=== PATIENT | female | born 1970 | race Caucasian/White ===

== ENCOUNTER 2016-04-15 15:40 | Emergency (ER) | payer BC ==
[~2016-04-15 15:40] MED LIST: /THIA10TA; ACET65TA PO; ASPI81TA45; ASPI81TA83 OR; CIPR500T4; CIPR500T4 PO; CIPRO; CIPRO PO; MAGN500T2 PO; NORT10CA2; OMEP20TA7; PERC5TAB8 PO; PERCOCET PO; PRIL20CA OR; PROP80CA OR; PROPRANOLOL
[2016-04-15] MEDS ORDERED: GI COCKTAIL 50ML BTL(HYOSCYAMINE/MAALOX/LIDOCAINE VISCOUS)(1:3:1) As Ordered ONE (16:02)
[2016-04-15 16:25] LABS: BASO # 0.1 K/mm3 (0.0-0.2); BASO % 1.1 % (0.0-1.0); EOS # 0.1 K/mm3 (0.0-0.50); EOS % 1.2 % (0.0-3.0); LARGE UNSTAINED CELL # 0.1 K/mm3 (0.0-0.4); LARGE UNSTAINED CELL % 1.6 % (0.0-4.0); LYMPH # 2.1 K/mm3 (1.5-4.5); LYMPH % 39.2 % (24.0-44.0); MEAN CORPUSCULAR HEMOGLOBIN 33.6 pg (27.0-33.0); MEAN CORPUSCULAR HGB CONC 32.1 g/dl (32.0-36.5); MEAN CORPUSCULAR VOLUME 104.7 fl (80.0-96.0); MONO # 0.4 K/mm3 (0.0-0.8); MONO % 7.5 % (0.0-5.0); NEUTROPHILS # 2.6 K/mm3 (1.8-7.7); NEUTROPHILS % 49.3 % (36.0-66.0); PLATELET COUNT, AUTOMATED 212 k/mm3 (150-450); RED CELL DISTRIBUTION WIDTH 14.4 % (11.5-14.5); WHITE BLOOD COUNT 5.2 K/mm3 (4.0-10.0)
--- NOTE | 2016-04-15 16:33 | REP ---
PA AND LATERAL CHEST, 04/15/2016: INDICATION: 46-year-old female with chest pain. Comparison PA and lateral chest 01/10/2009. FINDINGS: The mediastinum and cardiac silhouette are within normal limits. The lung robertson are clear without acute consolidation, effusion or pneumothorax. Skeletal structures are normal for age. IMPRESSION: No acute cardiopulmonary process. Unreviewed
[2016-04-15 16:50] LABS: ANION GAP 9 MEQ/L (8-16); BLOOD UREA NITROGEN 11 MG/DL (7-18); CALCIUM LEVEL 9.2 MG/DL (8.5-10.1); CARBON DIOXIDE LEVEL 29 MEQ/L (21-32); CHLORIDE LEVEL 106 MEQ/L (98-107); CREATININE FOR GFR 0.82 MG/DL (0.55-1.02); GLOMERULAR FILTRATION RATE > 60.0 (>58); GLUCOSE, FASTING 111 MG/DL (70-105); POTASSIUM SERUM 3.8 MEQ/L (3.5-5.1); SODIUM LEVEL 144 MEQ/L (136-145)
[2016-04-15] MEDS ORDERED: SUCRALFATE 1 GM TAB As Ordered ONE (17:10)
[2016-04-15] MEDS ORDERED: PANTOPRAZOLE 40MG INJ (PROTONIX) (C9113) As Ordered ONE (17:10)
[2016-04-15] MEDS ORDERED: ISOVUE-370 76% 100ML VIAL (Q9967) As Ordered ONE (17:18)
--- NOTE | 2016-04-15 18:36 | REP ---
CT ANGIOGRAM CHEST: 04/15/2016. Clinical history: Pleuritic chest pain. Evaluate for pulmonary embolism. Comparison chest x-ray today, CT angiogram 06/30/2006. Technique: Bolus of 100 mL-Isovue 370 with scanning through the chest with our pulmonary CT angiogram protocol with coronal and sagittal thick slab reconstructions. The lung robertson are well inflated. There are some dependant minor dependent atelectatic changes in the lower lung zones bilaterally. No cylindrical bronchiectasis, pleural effusion, pleural-based mass or calcified pleural plaques noted. No pneumothorax or pneumomediastinum. I see no acute infiltrate or mass. No evidence of a nodule. Heart is not enlarged as no pericardial thickening or effusion. The aorta is without aneurysm or dissection. The main, right and left pulmonary arteries and the mediastinum are without filling defects. Lobar arteries, segmental and subsegmental arteries are without filling defects or vessel cutoff that would clearly define a pulmonary embolism. No pathologic mediastinal or hilar adenopathy and no axillary, supraclavicular mass identified. Small hiatal hernia. The anastomotic sutures or staple lines from gastric bypass are noted. Bone windows show sternum, manubrium, clavicles, AC joints, humeral heads and glenohumeral joints, scapulae, ribs and spine without destructive lesion or compression deformity. There is mild dextrorotatory curve mid and lower thoracic spine with small osteophytes. The upper abdomen shows that portion of liver and spleen intact. No adrenal lesions are identified. The upper pole right kidney seen was unremarkable. Impression: 1. There is no CT evidence of pulmonary thromboembolism, acute infiltrate, pleural effusion, pneumothorax, pneumomediastinum, pulmonary nodule or other acute finding. 2. No aortic aneurysm or dissection. 3. No mediastinal or hilar adenopathy nor other acute finding. Bones intact. Signed by Jaquan Davison MD 04/15/2016 08:17 P
--- NOTE | 2016-04-15 21:22 | ECGEPIP ---
Stationary ECG Study [facility] - ED Test Date: 2016-04-15 Pat Name: LIZZETTE PEDRAZA Department: Room: - Gender: F Hematology Specialist: : 1970 Requested By: Tena Blum Order Number: [id number] Reading MD: Frnech Johnson Measurements Intervals [place] Rate: 77 P: 52 OH: 138 QRS: 52 QRSD: 92 T: 59 QT: 380 QTc: 432 Interpretive Statements SINUS RHYTHM Electronically Signed On 04-15-2016 21:22:43 EST by French Johnson
--- NOTE | 2016-04-15 21:35 | ECGEPIP ---
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
--- NOTE | 2016-04-15 22:32 | EDDOCDS ---
Physician Documentation [facility] Name: Terra Bennett Age: 46 yrs Sex: Female : 1970 Arrival Date: 04/15/2016 Time: 15:40 Bed OBSERVATION Private MD: Disposition: 04/15/16 21:39 Discharged to Home/Self Care. Impression: Chest pain, unspecified. - Condition is Stable. - Discharge Instructions: Angina Pectoris, Nonspecific Chest Pain, Chest Wall Pain, Gastroesophageal Reflux Disease, Adult. - Prescriptions for Protonix 40 mg Oral Tablet - take 1 tablet by ORAL route once daily; 30 tablet. Carafate 100 mg/mL Oral suspension - take 10 milliliter by ORAL route 4 times per day on an empty stomach 1 hour before meals and at bedtime; 250 milliliter. - Medication Reconciliation, Local Pharmacy Hours form. - Follow up: aMry Ivey DO; When: Call to arrange an appointment; Reason: Continuance of care. - Problem is an acute exacerbation. - Symptoms have improved. Historical: - Allergies: PENICILLINS (Hives); - Home Meds: 1. Zoloft 100 mg Oral tab 1 tab once daily 2. aspirin 81 mg Oral tab 1 tab once daily 3. multivitamin Oral cap 1 tablet daily - PMHx: Depression; Hypertension; Stroke (2005); - PSHx: Tonsillectomy; Cholecystectomy; Hysterectomy; Adenoidectomy; Gastric Bypass; Ear Tubes; - Social history: Smoking status: Patient states former smoker of tobacco. No barriers to communication noted, The patient speaks fluent Irish. - Family history: Not pertinent. - : The pt / caregiver states he / she is not on anticoagulants. Home medication list is obtained from the patient. - Exposure Risk Screening:: None identified. BUSINESS JOB TITLES: 04/15 22:31 LMP N/A - Irregular menses rs3 Vital Signs: 15:52 BP 127 / 88; Pulse 80; Resp 18; Temp 98.7(O); Pulse Ox 97% on R/A; Weight 77.11 kg / rn1 170 lbs (R); Height 5 ft. 7 in. (170.18 cm) (R); Pain 4/10; 16:24 BP 126 / 87 (auto/); rs3 16:24 Pulse 80 MON; Pulse Ox 96% ; rs3 16:39 BP 124 / 84 (auto/); rs3 16:39 Pulse 82 MON; Pulse Ox 96% ; rs3 16:54 BP 127 / 88 (auto/); rs3 16:54 Pulse 84 MON; Pulse Ox 97% ; rs3 17:09 BP 123 / 82 (auto/); rs3 17:09 Pulse 86 MON; Pulse Ox 96% ; rs3 17:24 BP 125 / 88 (auto/); rs3 17:24 Pulse 76 MON; Pulse Ox 98% ; rs3 21:47 BP 120 / 90; Pulse 77; Resp 20; Temp 98.7(TE); Pulse Ox 96% on R/A; Pain 0/10; jmv 15:52 Body Mass Index 26.63 (77.11 kg, 170.18 cm) rn1 MDM: 15:46 Appointment Clerk/Pulse Ox/q 30 min VS ordered. sd1 15:46 IV Saline Lock ordered. sd1 15:46 Rhythm Strip to chart ordered. sd1 15:46 Undress patient appropriately for examination ordered. sd1 15:47 Basic Metabolic Profile Ordered. EDMS 15:47 CBC with Diff Ordered. EDMS 15:47 Cardiac Injury Profile Ordered. EDMS 15:47 Troponin Ordered. EDMS 15:47 ECG WITH READING ER PHYS+CARDIAG ordered. EDMS 15:56 GI Cocktail - (Alum-Mag Hydroxide-Simeth 30 ml, Lidocaine 10 ml, Hyoscyamine 10 ml) PO sd1 once; Pre-mixed 50mL unit dose ordered. 15:57 D-Dimer Quant Ordered. EDMS 15:58 Chest, 2 View (pa\E\lat) Ordered. EDMS 16:49 CBC with Diff Reviewed. sd1 16:49 D-Dimer Quant Reviewed. sd1 16:53 Basic Metabolic Profile Reviewed. sd1 16:53 Cardiac Injury Profile Reviewed. sd1 16:53 Troponin Reviewed. sd1 16:58 NS 0.9% 1000 ml IV at 250 mL/hr continuous ordered. sd1 16:58 CT Chest Angio R/O PE Ordered. EDMS 17:01 pantoprazole 40 mg IV at bolus once ordered. sd1 17:01 Sucralfate 1 grams PO once ordered. sd1 17:21 Financial registration complete. lg 17:22 [facility] Payment Agreement was scanned into [employer] and attached to record. lg 18:00 Redraw CIP &Troponin (put time in details section) ordered. sd1 18:00 Repeat EKG (put time details section) ordered. sd1 18:04 Repeat EKG (put time details section) complete. deg 18:04 Redraw CIP &Troponin (put time in details section) complete. deg 18:05 CARDIAC MARKER PANEL Ordered. EDMS 18:05 ECG WITH READING ER PHYS ordered. EDMS 21:02 CARDIAC MARKER PANEL Reviewed. mm11 21:02 Chest, 2 View (pa\E\lat) Reviewed. mm11 21:02 CT Chest Angio R/O PE Reviewed. mm11 Administered Medications: 16:04 Drug: GI Cocktail - (Alum-Mag Hydroxide-Simeth Suspension 225 mg-200 mg-25 mg/5 mL 30 rs3 ml, Lidocaine Liquid 2 % 10 ml, Hyoscyamine Liquid 10 ml) Route: PO; 17:16 Drug: NS 0.9% 1000 ml [sodium chloride 0.9 % intravenous solution] Route: IV; Rate: 250 rs3 mL/hr; Site: left antecubital; 17:16 Drug: pantoprazole 40 mg [pantoprazole 40 mg intravenous solution] Route: IV; Rate: rs3 bolus; Site: left antecubital; 17:17 Drug: Sucralfate 1 grams [sucralfate 1 gram tablet (1 tabs)] Route: PO; rs3 Signatures: Dispatcher [employer] EDTena Flynn MD MD sd1 Amirah Morales, Editorial Clerk Unit deg Joseph Mathur, Reg Reg lg Kelechi Sheldon, DO DO mm11 Marianne JasmineRN RN rs3 The chart was reviewed and I authenticate all verbal orders and agree with the evaluation and treatment provided.Corrections: (The following items were deleted from the chart) 16:07 15:47 Chest, 1 view+XR ordered. EDMS EDMS Attachments: 17:22 [facility] Payment Agreement lg MTDD
--- NOTE | 2016-04-15 22:32 | EDDOCDS ---
Nurse's Notes [facility] Name: Lizzette Pedraza Age: 46 yrs Sex: Female : 1970 Arrival Date: 04/15/2016 Time: 15:40 Bed OBSERVATION Private MD: Diagnosis: Chest pain, unspecified Presentation: 04/15 15:49 Presenting complaint: EMS states: sudden onset of chest pain this afternoon. vomited rs3 twice. nausea all day. epigastric burning type pain. radiates to Left flank stabbing pain. 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 Adult Sepsis Screening: The patient does not have new or worsening altered mentation. Patient's respiratory rate is less than 22. Systolic blood pressure is greater than 100. Patient has a qSOFA score of 0- Negative Sepsis Screen. Suicide/Homicide risk assessment- the patient denies having any suicidal and/or homicidal ideations and does not present with any other emotional, behavioral or mental health complaints. Status: Patient is not a services advisor or dependent. Transition of care: patient was not received from another setting of care. Care prior to arrival: Medications administered prior to arrival: NTG, Saline lock initiated. Glucose check. 92. 15:49 Acuity: ANGEL Level 2 rs3 15:49 Method Of Arrival: Ambulance rs3 Triage Assessment: 15:53 General: Appears in no apparent distress. Pain: Location: chest. HIV screening NA for rs3 this visit Offered previously. Cardiovascular: Chest pain is described as Pain is 6 out of 10 on a pain scale. radiates to left flank episodes are intermittent began this morning. 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 Zoloft 100 mg Oral tab 1 tab once daily 2. aspirin 81 mg Oral tab 1 tab once daily 3. multivitamin Oral cap 1 tablet daily - PMHx: Depression; Hypertension; Stroke (2005); - PSHx: Tonsillectomy; Cholecystectomy; Hysterectomy; Adenoidectomy; Gastric Bypass; Ear Tubes; - Social history: Smoking status: Patient states former smoker of tobacco. No barriers to communication noted, The patient speaks fluent Arabic. - Family history: Not pertinent. - : The pt / caregiver states he / she is not on anticoagulants. Home medication list is obtained from the patient. - Exposure Risk Screening:: None identified. Screenin:30 Screening information is obtained from the patient. Fall risk: No risks identified. rs3 Assistance ADL's: requires no assistance with activities of daily living. Abuse/DV Screen: The patient / caregiver reports he/she is: not in a situation that causes fear, pain or injury. Nutritional screening: No deficits noted. Advance Directives: Currently, there is no health care proxy. There is no active DNR order. home support is adequate. Assessment: 16:30 General: see triage note. rs3 17:30 General: Appears in no apparent distress, Behavior is appropriate for age, cooperative. rs3 Neurological: Level of Consciousness is awake, alert. Cardiovascular: Rhythm is regular Chest pain is denied. Respiratory: Airway is patent Respiratory effort is even, unlabored, Respiratory pattern is regular, symmetrical, Breath sounds are clear bilaterally. Derm: Skin is pink, warm & dry. 18:23 General: Appears in no apparent distress, resting comfortable. denies of chest rs3 pain/discomfort. returned from CT angio. tolerated procedure well. IVF NS infusing at 250cc/hr.. 19:30 General: Appears in no apparent distress, Behavior is cooperative, denies of chest rs3 pain. waiting for repeat card komal. family at bedside. vital signs stable. . 20:47 General: Appears in no apparent distress, Behavior is appropriate for age, cooperative, rs3 denies of pain/distress. . 21:26 General: Appears in no apparent distress, Behavior is cooperative, denies of chest rs3 pain/discomfort. breathes easy. family at bedside. 22:29 Reassessment: Patient appears in no apparent distress at this time. Patient denies pain rs3 at this time. Patient states feeling better. Patient states symptoms have improved. Vital Signs: 15:52 BP 127 / 88; Pulse 80; Resp 18; Temp 98.7(O); Pulse Ox 97% on R/A; Weight 77.11 kg (R); rn1 Height 5 ft. 7 in. (170.18 cm) (R); Pain 4/10; 16:24 BP 126 / 87 (auto/); rs3 16:24 Pulse 80 MON; Pulse Ox 96% ; rs3 16:39 BP 124 / 84 (auto/); rs3 16:39 Pulse 82 MON; Pulse Ox 96% ; rs3 16:54 BP 127 / 88 (auto/); rs3 16:54 Pulse 84 MON; Pulse Ox 97% ; rs3 17:09 BP 123 / 82 (auto/); rs3 17:09 Pulse 86 MON; Pulse Ox 96% ; rs3 17:24 BP 125 / 88 (auto/); rs3 17:24 Pulse 76 MON; Pulse Ox 98% ; rs3 21:47 BP 120 / 90; Pulse 77; Resp 20; Temp 98.7(TE); Pulse Ox 96% on R/A; Pain 0/10; jmv 15:52 Body Mass Index 26.63 (77.11 kg, 170.18 cm) rn1 Vitals: 22:31 Log In Time N/A - ambulance arrival. rs3 ED Course: 15:41 Patient visited by Amirah Morales, Boiler Tenders Supervisor. deg 15:41 Patient moved to Waiting deg 15:42 Teri Latham,RN is Primary Nurse. deg 15:42 Tena Blum MD is Attending Physician. sd1 15:42 Patient moved to 10 deg 15:43 Marianne Jasmine,JOLENE is Primary Nurse. rs3 15:50 Patient visited by Tena Blum MD. sd1 15:51 Triage Initiated rs3 16:52 Patient visited by Suhas Sánchez PCA. jlf 17:15 Chest, 2 View (pa\E\lat) Returned. EDMS 17:22 [facility] Payment Agreement was scanned into [employer] and attached to record. lg 17:32 Patient visited by Marianne Jasmine RN. rs3 18:10 Patient visited by Marianne Jasmine RN. rs3 18:18 Patient moved to OBSERVATION sd1 19:07 CT Chest Angio R/O PE Returned. EDMS 19:22 Attending Physician role handed off by Tena Blum MD mm11 19:22 Kelechi Sheldon DO is Attending Physician. mm11 21:04 CT Chest Angio R/O PE Returned. EDMS 21:04 EKG done. (by ED staff). Reviewed by Kelechi Sheldon DO. jmv 21:05 Patient visited by Sujit Rocha PCA. jmv 21:39 Loni, Mary, DO is Referral Physician. mm11 21:47 Patient visited by Sujit Rocha PCA. jmv 21:58 EKG-ADULT Returned. EDMS 21:59 ECG WITH READING ER PHYS Returned. EDMS 22:30 Maintain field IV. Dressing intact. Good blood return noted. Site clean & dry. rs3 22:30 Discontinued lock bleeding controlled, pressure dressing applied, No redness/swelling rs3 at site. No procedures done that require assistance. 22:31 The patient / caregiver is instructed regarding the plan of care and ED course. Cardiac rs3 monitor on. Pulse ox on. NIBP on. Administered Medications: 16:04 Drug: GI Cocktail - (Alum-Mag Hydroxide-Simeth Suspension 225 mg-200 mg-25 mg/5 mL 30 rs3 ml, Lidocaine Liquid 2 % 10 ml, Hyoscyamine Liquid 10 ml) Route: PO; 17:16 Drug: NS 0.9% 1000 ml [sodium chloride 0.9 % intravenous solution] Route: IV; Rate: 250 rs3 mL/hr; Site: left antecubital; 17:16 Drug: pantoprazole 40 mg [pantoprazole 40 mg intravenous solution] Route: IV; Rate: rs3 bolus; Site: left antecubital; 17:17 Drug: Sucralfate 1 grams [sucralfate 1 gram tablet (1 tabs)] Route: PO; rs3 Order Results: Lab Order: Basic Metabolic Profile; SPEC'M 04/15/16 16:12 Test: GLUCOSE, FASTING; Value: 111; Range: 70-105; Abnormal: Above high normal; Units: MG/DL; Status: F Test: BLOOD UREA NITROGEN; Value: 11; Range: 7-18; Units: MG/DL; Status: F Test: CREATININE FOR GFR; Value: 0.82; Range: 0.55-1.02; Units: MG/DL; Status: F Test: GLOMERULAR FILTRATION RATE; Value: > 60.0; Range: >58; Status: F Test: SODIUM LEVEL; Value: 144; Range: 136-145; Units: MEQ/L; Status: F Test: POTASSIUM SERUM; Value: 3.8; Range: 3.5-5.1; Units: MEQ/L; Status: F Test: CHLORIDE LEVEL; Value: 106; Range: 98-107; Units: MEQ/L; Status: F Test: CARBON DIOXIDE LEVEL; Value: 29; Range: 21-32; Units: MEQ/L; Status: F Test: ANION GAP; Value: 9; Range: 8-16; Units: MEQ/L; Status: F Test: CALCIUM LEVEL; Value: 9.2; Range: 8.5-10.1; Units: MG/DL; Status: F Test Note: ; Units are mL/min/1.73 m2 Chronic Kidney Disease Staging per NKF: Stage I & II GFR >=60 Normal to Mildly Decreased Stage III GFR 30-59 Moderately Decreased Stage IV GFR 15-29 Severely Decreased Stage V GFR <15 Very Little GFR Left ESRD GFR <15 on BREAKFAST SUPERVISOR Lab Order: CBC with Diff; SPEC'M 04/15/16 16:12 Test: WHITE BLOOD COUNT; Value: 5.2; Range: 4.0-10.0; Units: K/mm3; Status: F Test: RED BLOOD COUNT; Value: 3.95; Range: 4.00-5.40; Abnormal: Below low normal; Units: M/mm3; Status: F Test: HEMOGLOBIN; Value: 13.3; Range: 12.0-16.0; Units: g/dl; Status: F Test: HEMATOCRIT; Value: 41.3; Range: 36.0-47.0; Units: %; Status: F Test: MEAN CORPUSCULAR VOLUME; Value: 104.7; Range: 80.0-96.0; Abnormal: Above high normal; Units: fl; Status: F Test: MEAN CORPUSCULAR HEMOGLOBIN; Value: 33.6; Range: 27.0-33.0; Abnormal: Above high normal; Units: pg; Status: F Test: MEAN CORPUSCULAR HGB CONC; Value: 32.1; Range: 32.0-36.5; Units: g/dl; Status: F Test: RED CELL DISTRIBUTION WIDTH; Value: 14.4; Range: 11.5-14.5; Units: %; Status: F Test: PLATELET COUNT, AUTOMATED; Value: 212; Range: 150-450; Units: k/mm3; Status: F Test: NEUTROPHILS %; Value: 49.3; Range: 36.0-66.0; Units: %; Status: F Test: LYMPH %; Value: 39.2; Range: 24.0-44.0; Units: %; Status: F Test: MONO %; Value: 7.5; Range: 0.0-5.0; Abnormal: Above high normal; Units: %; Status: F Test: EOS %; Value: 1.2; Range: 0.0-3.0; Units: %; Status: F Test: BASO %; Value: 1.1; Range: 0.0-1.0; Abnormal: Above high normal; Units: %; Status: F Test: LARGE UNSTAINED CELL %; Value: 1.6; Range: 0.0-4.0; Units: %; Status: F Test: NEUTROPHILS #; Value: 2.6; Range: 1.8-7.7; Units: K/mm3; Status: F Test: LYMPH #; Value: 2.1; Range: 1.5-4.5; Units: K/mm3; Status: F Test: MONO #; Value: 0.4; Range: 0.0-0.8; Units: K/mm3; Status: F Test: EOS #; Value: 0.1; Range: 0.0-0.50; Units: K/mm3; Status: F Test: BASO #; Value: 0.1; Range: 0.0-0.2; Units: K/mm3; Status: F Test: LARGE UNSTAINED CELL #; Value: 0.1; Range: 0.0-0.4; Units: K/mm3; Status: F Lab Order: Cardiac Injury Profile; SPEC'M 04/15/16 16:12 Test: CPK CREATINE PHOSPHOKINASE; Value: 43; Range: 26-192; Units: U/L; Status: F Test: CK-MB VALUE MASS; Value: 1.0; Range: 0.0-3.6; Units: NG/ML; Status: F Test: MB/CK RELATIVE INDEX; Value: 2.32; Range: < OR =4; Status: F Test Note: ; DIAGNOSIS CRITERIA MMB ng/ml Relative Index (RI) NON-AMI < or = 5 N/A ANDERSON ZONE > 5 < or = 4 AMI > 5 > 4 Lab Order: Troponin; SPEC'M 04/15/16 16:12 Test: TROPONIN I; Value: < 0.02; Range: < 0.10; Units: NG/ML; Status: F Test Note: ; Troponin I Reference Interval for Siemens Sensbeat LOCI: 99th Percentile= 0.00-0.045 ng/ml Risk Stratification: <= 0.10 ng/ml Decreased Risk for Adverse Clinical Events. 0.10-1.50 ng/ml Increased Risk for Adverse Clinical Events. Evaluation of additional criterion and/or repeat testing in 2-6 hours is suggested to rule out myocardial damage. >= 1.50 ng/ml Indicative of Myocardial Injury. Lab Order: D-Dimer Quant; SPEC'M 04/15/16 16:12 Test: D-DIMER QUANT; Value: 508.6; Range: <500; Abnormal: Above high normal; Units: ng/ml; Status: F Lab Order: CARDIAC MARKER PANEL; SPEC'M 04/15/16 19:56 Test: CPK CREATINE PHOSPHOKINASE; Value: 34; Range: 26-192; Units: U/L; Status: F Test: CK-MB VALUE MASS; Value: 1.0; Range: 0.0-3.6; Units: NG/ML; Status: F Test: MB/CK RELATIVE INDEX; Value: 2.94; Range: < OR =4; Status: F Test: TROPONIN I; Value: < 0.02; Range: < 0.10; Units: NG/ML; Status: F Test Note: ; DIAGNOSIS CRITERIA MMB ng/ml Relative Index (RI) NON-AMI < or = 5 N/A ANDERSON ZONE > 5 < or = 4 AMI > 5 > 4 Radiology Order: EKG-ADULT Test: EKG-ADULT REASON FOR EXAMINATION: Chest Pain; Stationary ECG Study; [facility] - ED; ; Test Date: 2016-04-15; Pat Name: LIZZETTE PEDRAZA Department:; Room: -; Gender: F Crook Operator: rs; : 1970 Requested By: Tena Blum; Order Number: [id number] Reading MD: French Johnson; Measurements; Intervals [place]; Rate: 77 P: 52; MA: 138 QRS: 52; QRSD: 92 T: 59; QT: 380; QTc: 432; Interpretive Statements; SINUS RHYTHM; ; Electronically Signed On 04-15-2016 21:22:43 EST by French Johnson; Radiology Order: Chest, 2 View (pa\E\lat) Test: Chest, 2 View (pa\E\lat) REASON FOR EXAMINATION: Chest Pain; PA AND LATERAL CHEST, 04/15/2016:; ; INDICATION: 46-year-old female with chest pain.; ; Comparison PA and lateral chest 01/10/2009.; ; FINDINGS: The mediastinum and cardiac silhouette are within normal limits. The; lung robertson are clear without acute consolidation, effusion or pneumothorax.; Skeletal structures are normal for age.; ; IMPRESSION:; No acute cardiopulmonary process.; ; ; ; Unreviewed; Radiology Order: CT Chest Angio R/O PE Test: CT Chest Angio R/O PE REASON FOR EXAMINATION: pleuritic chest pain elevated d-dimer; CT ANGIOGRAM CHEST: 04/15/2016.; ; Clinical history: Pleuritic chest pain. Evaluate for pulmonary embolism.; ; Comparison chest x-ray today, CT angiogram 06/30/2006.; ; Technique: Bolus of 100 mL-Isovue 370 with scanning through the chest with our; pulmonary CT angiogram protocol with coronal and sagittal thick slab; reconstructions.; ; The lung robertson are well inflated. There are some dependant minor dependent; atelectatic changes in the lower lung zones bilaterally. No cylindrical; bronchiectasis, pleural effusion, pleural-based mass or calcified pleural plaques; noted. No pneumothorax or pneumomediastinum. I see no acute infiltrate or mass.; No evidence of a nodule. Heart is not enlarged as no pericardial thickening or; effusion. The aorta is without aneurysm or dissection. The main, right and left; pulmonary arteries and the mediastinum are without filling defects. Lobar; arteries, segmental and subsegmental arteries are without filling defects or; vessel cutoff that would clearly define a pulmonary embolism. No pathologic; mediastinal or hilar adenopathy and no axillary, supraclavicular mass identified.; Small hiatal hernia. The anastomotic sutures or staple lines from gastric bypass; are noted. Bone windows show sternum, manubrium, clavicles, AC joints, humeral; heads and glenohumeral joints, scapulae, ribs and spine without destructive; lesion or compression deformity. There is mild dextrorotatory curve mid and; lower thoracic spine with small osteophytes. The upper abdomen shows that; portion of liver and spleen intact. No adrenal lesions are identified. The; upper pole right kidney seen was unremarkable.; ; Impression:; ; 1. There is no CT evidence of pulmonary thromboembolism, acute infiltrate,; pleural effusion, pneumothorax, pneumomediastinum, pulmonary nodule or other; acute finding.; ; 2. No aortic aneurysm or dissection.; ; 3. No mediastinal or hilar adenopathy nor other acute finding. Bones intact.; ; ; Signed by; Jaquan Davison MD 04/15/2016 08:17 P; Radiology Order: ECG WITH READING ER PHYS Test: ECG WITH READING ER PHYS REASON FOR EXAMINATION: CHEST PAIN; Stationary ECG Study; [facility] - ED; ; Test Date: 2016-04-15; Pat Name: LIZZETTE PEDRAZA Department:; Room: -; Gender: F Crook Operator: act; : 1970 Requested By: Tena Blum; Order Number: [id number] Reading MD: French Johnson; Measurements; Intervals [place]; Rate: 69 P: 44; MA: 150 QRS: 30; QRSD: 92 T: 35; QT: 395; QTc: 426; Interpretive Statements; SINUS RHYTHM; ; Electronically Signed On 04-15-2016 21:35:06 EST by French Johnson; Outcome: 21:39 Discharge ordered by Provider. mm11 22:29 Discharge Assessment: patient administered narcotics - no. The following High Risk rs3 Discharge criteria are identified: None. Discharged to home with family. Condition: stable. Discharge instructions given to patient, Instructed on discharge instructions, follow up and referral plans. medication usage, Demonstrated understanding of instructions, medications, Pt was receptive of discharge instructions/ teaching. Prescriptions given X 2. CT Study completed. Property :Personal belongings accompany Pt. 22:31 Patient left the ED. rs3 Signatures: Dispatcher [employer] EDMS Tena Blum MD MD sd1 Amirah Morales, Boiler Tenders Supervisor Unit deg Joseph Mathru, Reg Reg lg Kelechi Sheldon, DO DO mm11 Marianne Jasmine RN RN rs3 Suhas Sánchez, VESSEL LINER VESSEL LINER jlf Jacky Cardoza rn1 Sujit Rocha, VESSEL LINER VESSEL LINER jmv MTDD
--- NOTE | 2016-04-17 23:32 | EDDOCDS ---
Physician Documentation [facility] Name: Terra Bennett Age: 46 yrs Sex: Female : 1970 Arrival Date: 04/15/2016 Time: 15:40 Bed OBSERVATION Private MD: Disposition: 04/15/16 21:39 Discharged to Home/Self Care. Impression: Chest pain, unspecified. - Condition is Stable. - Discharge Instructions: Angina Pectoris, Nonspecific Chest Pain, Chest Wall Pain, Gastroesophageal Reflux Disease, Adult. - Prescriptions for Protonix 40 mg Oral Tablet - take 1 tablet by ORAL route once daily; 30 tablet. Carafate 100 mg/mL Oral suspension - take 10 milliliter by ORAL route 4 times per day on an empty stomach 1 hour before meals and at bedtime; 250 milliliter. - Medication Reconciliation, Local Pharmacy Hours form. - Follow up: Mary Ivey DO; When: Call to arrange an appointment; Reason: Continuance of care. - Problem is an acute exacerbation. - Symptoms have improved. Historical: - Allergies: PENICILLINS (Hives); - Home Meds: 1. Zoloft 100 mg Oral tab 1 tab once daily 2. aspirin 81 mg Oral tab 1 tab once daily 3. multivitamin Oral cap 1 tablet daily - PMHx: Depression; Hypertension; Stroke (2005); - PSHx: Tonsillectomy; Cholecystectomy; Hysterectomy; Adenoidectomy; Gastric Bypass; Ear Tubes; - Social history: Smoking status: Patient states former smoker of tobacco. No barriers to communication noted, The patient speaks fluent Serbian. - Family history: Not pertinent. - : The pt / caregiver states he / she is not on anticoagulants. Home medication list is obtained from the patient. - Exposure Risk Screening:: None identified. PATTERN FILER: 04/15 22:31 LMP N/A - Irregular menses rs3 Vital Signs: 15:52 BP 127 / 88; Pulse 80; Resp 18; Temp 98.7(O); Pulse Ox 97% on R/A; Weight 77.11 kg / rn1 170 lbs (R); Height 5 ft. 7 in. (170.18 cm) (R); Pain 4/10; 16:24 BP 126 / 87 (auto/); rs3 16:24 Pulse 80 MON; Pulse Ox 96% ; rs3 16:39 BP 124 / 84 (auto/); rs3 16:39 Pulse 82 MON; Pulse Ox 96% ; rs3 16:54 BP 127 / 88 (auto/); rs3 16:54 Pulse 84 MON; Pulse Ox 97% ; rs3 17:09 BP 123 / 82 (auto/); rs3 17:09 Pulse 86 MON; Pulse Ox 96% ; rs3 17:24 BP 125 / 88 (auto/); rs3 17:24 Pulse 76 MON; Pulse Ox 98% ; rs3 21:47 BP 120 / 90; Pulse 77; Resp 20; Temp 98.7(TE); Pulse Ox 96% on R/A; Pain 0/10; jmv 15:52 Body Mass Index 26.63 (77.11 kg, 170.18 cm) rn1 MDM: 15:46 Auto Locator/Pulse Ox/q 30 min VS ordered. sd1 15:46 IV Saline Lock ordered. sd1 15:46 Rhythm Strip to chart ordered. sd1 15:46 Undress patient appropriately for examination ordered. sd1 15:47 Basic Metabolic Profile Ordered. EDMS 15:47 CBC with Diff Ordered. EDMS 15:47 Cardiac Injury Profile Ordered. EDMS 15:47 Troponin Ordered. EDMS 15:47 ECG WITH READING ER PHYS+CARDIAG ordered. EDMS 15:56 GI Cocktail - (Alum-Mag Hydroxide-Simeth 30 ml, Lidocaine 10 ml, Hyoscyamine 10 ml) PO sd1 once; Pre-mixed 50mL unit dose ordered. 15:57 D-Dimer Quant Ordered. EDMS 15:58 Chest, 2 View (pa\E\lat) Ordered. EDMS 16:49 CBC with Diff Reviewed. sd1 16:49 D-Dimer Quant Reviewed. sd1 16:53 Basic Metabolic Profile Reviewed. sd1 16:53 Cardiac Injury Profile Reviewed. sd1 16:53 Troponin Reviewed. sd1 16:58 NS 0.9% 1000 ml IV at 250 mL/hr continuous ordered. sd1 16:58 CT Chest Angio R/O PE Ordered. EDMS 17:01 pantoprazole 40 mg IV at bolus once ordered. sd1 17:01 Sucralfate 1 grams PO once ordered. sd1 17:21 Financial registration complete. lg 17:22 [facility] [place] Payment Agreement was scanned into [employer] and attached to record. lg 18:00 Redraw CIP &Troponin (put time in details section) ordered. sd1 18:00 Repeat EKG (put time details section) ordered. sd1 18:04 Repeat EKG (put time details section) complete. deg 18:04 Redraw CIP &Troponin (put time in details section) complete. deg 18:05 CARDIAC MARKER PANEL Ordered. EDMS 18:05 ECG WITH READING ER PHYS ordered. EDMS 21:02 CARDIAC MARKER PANEL Reviewed. mm11 21:02 Chest, 2 View (pa\E\lat) Reviewed. mm11 21:02 CT Chest Angio R/O PE Reviewed. mm11 04/16 09:49 T-Sheet-- Draft Copy was scanned into [employer] and attached to record. gb 09:49 ECG/EKG was scanned into [employer] and attached to record. gb Administered Medications: 04/15 16:04 Drug: GI Cocktail - (Alum-Mag Hydroxide-Simeth Suspension 225 mg-200 mg-25 mg/5 mL 30 rs3 ml, Lidocaine Liquid 2 % 10 ml, Hyoscyamine Liquid 10 ml) Route: PO; 17:16 Drug: NS 0.9% 1000 ml [sodium chloride 0.9 % intravenous solution] Route: IV; Rate: 250 rs3 mL/hr; Site: left antecubital; 17:16 Drug: pantoprazole 40 mg [pantoprazole 40 mg intravenous solution] Route: IV; Rate: rs3 bolus; Site: left antecubital; 17:17 Drug: Sucralfate 1 grams [sucralfate 1 gram tablet (1 tabs)] Route: PO; rs3 Signatures: Dispatcher [employer] EDKY Tena Blum MD MD sd1 Amirah Morales, Level Vial Inspector Unit deg Sue Calvert, Reg Reg gb Joseph Mathur, Reg Reg lg Kelechi Sheldon, DO mm11 Marianne JasmineRN RN rs3 The chart was reviewed and I authenticate all verbal orders and agree with the evaluation and treatment provided.Corrections: (The following items were deleted from the chart) 16:07 15:47 Chest, 1 view+XR ordered. EDMS EDMS Attachments: 17:22 [facility] [place] Payment Agreement lg 04/16 09:49 T-Sheet-- Draft Copy 09:49 ECG/EKG gb Chart Complete MTDD
--- NOTE | 2016-04-17 23:33 | EDDOCDS ---
Nurse's Notes [facility] Name: Lizzette Pedraza Age: 46 yrs Sex: Female : 1970 Arrival Date: 04/15/2016 Time: 15:40 Bed OBSERVATION Private MD: Diagnosis: Chest pain, unspecified Presentation: 04/15 15:49 Presenting complaint: EMS states: sudden onset of chest pain this afternoon. vomited rs3 twice. nausea all day. epigastric burning type pain. radiates to Left flank stabbing pain. Aspirin was taken [employer]. Adult Sepsis Screening: The patient does not have new or worsening altered mentation. Patient's respiratory rate is less than 22. Systolic blood pressure is greater than 100. Patient has a qSOFA score of 0- Negative Sepsis Screen. Suicide/Homicide risk assessment- the patient denies having any suicidal and/or homicidal ideations and does not present with any other emotional, behavioral or mental health complaints. Status: Patient is not a patient services technician or dependent. Transition of care: patient was not received from another setting of care. Care prior to arrival: Medications administered prior to arrival: NTG, Saline lock initiated. Glucose check. 92. 15:49 Acuity: ANGEL Level 2 rs3 15:49 Method Of Arrival: Ambulance rs3 Triage Assessment: 15:53 General: Appears in no apparent distress. Pain: Location: chest. HIV screening NA for rs3 this visit Offered previously. Cardiovascular: Chest pain is described as Pain is 6 out of 10 on a pain scale. radiates to left flank episodes are intermittent began this morning. 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 Zoloft 100 mg Oral tab 1 tab once daily 2. aspirin 81 mg Oral tab 1 tab once daily 3. multivitamin Oral cap 1 tablet daily - PMHx: Depression; Hypertension; Stroke (2005); - PSHx: Tonsillectomy; Cholecystectomy; Hysterectomy; Adenoidectomy; Gastric Bypass; Ear Tubes; - Social history: Smoking status: Patient states former smoker of tobacco. No barriers to communication noted, The patient speaks fluent Nepali. - Family history: Not pertinent. - : The pt / caregiver states he / she is not on anticoagulants. Home medication list is obtained from the patient. - Exposure Risk Screening:: None identified. Screenin:30 Screening information is obtained from the patient. Fall risk: No risks identified. rs3 Assistance ADL's: requires no assistance with activities of daily living. Abuse/DV Screen: The patient / caregiver reports he/she is: not in a situation that causes fear, pain or injury. Nutritional screening: No deficits noted. Advance Directives: Currently, there is no health care proxy. There is no active DNR order. home support is adequate. Assessment: 16:30 General: see triage note. rs3 17:30 General: Appears in no apparent distress, Behavior is appropriate for age, cooperative. rs3 Neurological: Level of Consciousness is awake, alert. Cardiovascular: Rhythm is regular Chest pain is denied. Respiratory: Airway is patent Respiratory effort is even, unlabored, Respiratory pattern is regular, symmetrical, Breath sounds are clear bilaterally. Derm: Skin is pink, warm & dry. 18:23 General: Appears in no apparent distress, resting comfortable. denies of chest rs3 pain/discomfort. returned from CT angio. tolerated procedure well. IVF NS infusing at 250cc/hr.. 19:30 General: Appears in no apparent distress, Behavior is cooperative, denies of chest rs3 pain. waiting for repeat card komal. family at bedside. vital signs stable. . 20:47 General: Appears in no apparent distress, Behavior is appropriate for age, cooperative, rs3 denies of pain/distress. . 21:26 General: Appears in no apparent distress, Behavior is cooperative, denies of chest rs3 pain/discomfort. breathes easy. family at bedside. 22:29 Reassessment: Patient appears in no apparent distress at this time. Patient denies pain rs3 at this time. Patient states feeling better. Patient states symptoms have improved. Vital Signs: 15:52 BP 127 / 88; Pulse 80; Resp 18; Temp 98.7(O); Pulse Ox 97% on R/A; Weight 77.11 kg (R); rn1 Height 5 ft. 7 in. (170.18 cm) (R); Pain 4/10; 16:24 BP 126 / 87 (auto/); rs3 16:24 Pulse 80 MON; Pulse Ox 96% ; rs3 16:39 BP 124 / 84 (auto/); rs3 16:39 Pulse 82 MON; Pulse Ox 96% ; rs3 16:54 BP 127 / 88 (auto/); rs3 16:54 Pulse 84 MON; Pulse Ox 97% ; rs3 17:09 BP 123 / 82 (auto/); rs3 17:09 Pulse 86 MON; Pulse Ox 96% ; rs3 17:24 BP 125 / 88 (auto/); rs3 17:24 Pulse 76 MON; Pulse Ox 98% ; rs3 21:47 BP 120 / 90; Pulse 77; Resp 20; Temp 98.7(TE); Pulse Ox 96% on R/A; Pain 0/10; jmv 15:52 Body Mass Index 26.63 (77.11 kg, 170.18 cm) rn1 Vitals: 22:31 Log In Time N/A - ambulance arrival. rs3 ED Course: 15:41 Patient visited by Amirah Morales, [place] [employer] Operator. deg 15:41 Patient moved to Waiting deg 15:42 Teri Latham,RN is Primary Nurse. deg 15:42 Tena Blum MD is Attending Physician. sd1 15:42 Patient moved to 10 deg 15:43 Marianne Jasmine,JOLENE is Primary Nurse. rs3 15:50 Patient visited by Tena Blum MD. sd1 15:51 Triage Initiated rs3 16:52 Patient visited by Suhas Sánchze PCA. jlf 17:15 Chest, 2 View (pa\E\lat) Returned. EDMS 17:22 [facility] Payment Agreement was scanned into [employer] and attached to record. lg 17:32 Patient visited by Marianne Jasmine RN. rs3 18:10 Patient visited by Marianne Jasmine RN. rs3 18:18 Patient moved to OBSERVATION sd1 19:07 CT Chest Angio R/O PE Returned. EDMS 19:22 Attending Physician role handed off by Tena Blum MD mm11 19:22 Kelechi Sheldon DO is Attending Physician. mm11 21:04 CT Chest Angio R/O PE Returned. EDMS 21:04 EKG done. (by ED staff). Reviewed by Kelechi Sheldon DO. jmv 21:05 Patient visited by Sujit Rocha PCA. jmv 21:39 Loni, Mary, DO is Referral Physician. mm11 21:47 Patient visited by Sujit Rocha PCA. jmv 21:58 EKG-ADULT Returned. EDMS 21:59 ECG WITH READING ER PHYS Returned. EDMS 22:30 Maintain field IV. Dressing intact. Good blood return noted. Site clean & dry. rs3 22:30 Discontinued lock bleeding controlled, pressure dressing applied, No redness/swelling rs3 at site. No procedures done that require assistance. 22:31 The patient / caregiver is instructed regarding the plan of care and ED course. Cardiac rs3 monitor on. Pulse ox on. NIBP on. 23:05 Chest, 2 View (pa\E\lat) Returned. EDMS 04/16 09:49 T-Sheet-- Draft Copy was scanned into [employer] and attached to record. gb 09:49 ECG/EKG was scanned into [employer] and attached to record. gb Administered Medications: 04/15 16:04 Drug: GI Cocktail - (Alum-Mag Hydroxide-Simeth Suspension 225 mg-200 mg-25 mg/5 mL 30 rs3 ml, Lidocaine Liquid 2 % 10 ml, Hyoscyamine Liquid 10 ml) Route: PO; 17:16 Drug: NS 0.9% 1000 ml [sodium chloride 0.9 % intravenous solution] Route: IV; Rate: 250 rs3 mL/hr; Site: left antecubital; 17:16 Drug: pantoprazole 40 mg [pantoprazole 40 mg intravenous solution] Route: IV; Rate: rs3 bolus; Site: left antecubital; 17:17 Drug: Sucralfate 1 grams [sucralfate 1 gram tablet (1 tabs)] Route: PO; rs3 Order Results: Lab Order: Basic Metabolic Profile; SPEC'M 04/15/16 16:12 Test: GLUCOSE, FASTING; Value: 111; Range: 70-105; Abnormal: Above high normal; Units: MG/DL; Status: F Test: BLOOD UREA NITROGEN; Value: 11; Range: 7-18; Units: MG/DL; Status: F Test: CREATININE FOR GFR; Value: 0.82; Range: 0.55-1.02; Units: MG/DL; Status: F Test: GLOMERULAR FILTRATION RATE; Value: > 60.0; Range: >58; Status: F Test: SODIUM LEVEL; Value: 144; Range: 136-145; Units: MEQ/L; Status: F Test: POTASSIUM SERUM; Value: 3.8; Range: 3.5-5.1; Units: MEQ/L; Status: F Test: CHLORIDE LEVEL; Value: 106; Range: 98-107; Units: MEQ/L; Status: F Test: CARBON DIOXIDE LEVEL; Value: 29; Range: 21-32; Units: MEQ/L; Status: F Test: ANION GAP; Value: 9; Range: 8-16; Units: MEQ/L; Status: F Test: CALCIUM LEVEL; Value: 9.2; Range: 8.5-10.1; Units: MG/DL; Status: F Test Note: ; Units are mL/min/1.73 m2 Chronic Kidney Disease Staging per NKF: Stage I & II GFR >=60 Normal to Mildly Decreased Stage III GFR 30-59 Moderately Decreased Stage IV GFR 15-29 Severely Decreased Stage V GFR <15 Very Little GFR Left ESRD GFR <15 on CONVENTION WORKER Lab Order: CBC with Diff; SPEC'M 04/15/16 16:12 Test: WHITE BLOOD COUNT; Value: 5.2; Range: 4.0-10.0; Units: K/mm3; Status: F Test: RED BLOOD COUNT; Value: 3.95; Range: 4.00-5.40; Abnormal: Below low normal; Units: M/mm3; Status: F Test: HEMOGLOBIN; Value: 13.3; Range: 12.0-16.0; Units: g/dl; Status: F Test: HEMATOCRIT; Value: 41.3; Range: 36.0-47.0; Units: %; Status: F Test: MEAN CORPUSCULAR VOLUME; Value: 104.7; Range: 80.0-96.0; Abnormal: Above high normal; Units: fl; Status: F Test: MEAN CORPUSCULAR HEMOGLOBIN; Value: 33.6; Range: 27.0-33.0; Abnormal: Above high normal; Units: pg; Status: F Test: MEAN CORPUSCULAR HGB CONC; Value: 32.1; Range: 32.0-36.5; Units: g/dl; Status: F Test: RED CELL DISTRIBUTION WIDTH; Value: 14.4; Range: 11.5-14.5; Units: %; Status: F Test: PLATELET COUNT, AUTOMATED; Value: 212; Range: 150-450; Units: k/mm3; Status: F Test: NEUTROPHILS %; Value: 49.3; Range: 36.0-66.0; Units: %; Status: F Test: LYMPH %; Value: 39.2; Range: 24.0-44.0; Units: %; Status: F Test: MONO %; Value: 7.5; Range: 0.0-5.0; Abnormal: Above high normal; Units: %; Status: F Test: EOS %; Value: 1.2; Range: 0.0-3.0; Units: %; Status: F Test: BASO %; Value: 1.1; Range: 0.0-1.0; Abnormal: Above high normal; Units: %; Status: F Test: LARGE UNSTAINED CELL %; Value: 1.6; Range: 0.0-4.0; Units: %; Status: F Test: NEUTROPHILS #; Value: 2.6; Range: 1.8-7.7; Units: K/mm3; Status: F Test: LYMPH #; Value: 2.1; Range: 1.5-4.5; Units: K/mm3; Status: F Test: MONO #; Value: 0.4; Range: 0.0-0.8; Units: K/mm3; Status: F Test: EOS #; Value: 0.1; Range: 0.0-0.50; Units: K/mm3; Status: F Test: BASO #; Value: 0.1; Range: 0.0-0.2; Units: K/mm3; Status: F Test: LARGE UNSTAINED CELL #; Value: 0.1; Range: 0.0-0.4; Units: K/mm3; Status: F Lab Order: Cardiac Injury Profile; SPEC'M 04/15/16 16:12 Test: CPK CREATINE PHOSPHOKINASE; Value: 43; Range: 26-192; Units: U/L; Status: F Test: CK-MB VALUE MASS; Value: 1.0; Range: 0.0-3.6; Units: NG/ML; Status: F Test: MB/CK RELATIVE INDEX; Value: 2.32; Range: < OR =4; Status: F Test Note: ; DIAGNOSIS CRITERIA MMB ng/ml Relative Index (RI) NON-AMI < or = 5 N/A ANDERSON ZONE > 5 < or = 4 AMI > 5 > 4 Lab Order: Troponin; SPEC'M 04/15/16 16:12 Test: TROPONIN I; Value: < 0.02; Range: < 0.10; Units: NG/ML; Status: F Test Note: ; Troponin I Reference Interval for Siemens Fluker LOCI: 99th Percentile= 0.00-0.045 ng/ml Risk Stratification: <= 0.10 ng/ml Decreased Risk for Adverse Clinical Events. 0.10-1.50 ng/ml Increased Risk for Adverse Clinical Events. Evaluation of additional criterion and/or repeat testing in 2-6 hours is suggested to rule out myocardial damage. >= 1.50 ng/ml Indicative of Myocardial Injury. Lab Order: D-Dimer Quant; SPEC'M 04/15/16 16:12 Test: D-DIMER QUANT; Value: 508.6; Range: <500; Abnormal: Above high normal; Units: ng/ml; Status: F Lab Order: CARDIAC MARKER PANEL; SPEC'M 04/15/16 19:56 Test: CPK CREATINE PHOSPHOKINASE; Value: 34; Range: 26-192; Units: U/L; Status: F Test: CK-MB VALUE MASS; Value: 1.0; Range: 0.0-3.6; Units: NG/ML; Status: F Test: MB/CK RELATIVE INDEX; Value: 2.94; Range: < OR =4; Status: F Test: TROPONIN I; Value: < 0.02; Range: < 0.10; Units: NG/ML; Status: F Test Note: ; DIAGNOSIS CRITERIA MMB ng/ml Relative Index (RI) NON-AMI < or = 5 N/A ANDERSON ZONE > 5 < or = 4 AMI > 5 > 4 Radiology Order: EKG-ADULT Test: EKG-ADULT REASON FOR EXAMINATION: Chest Pain; Stationary ECG Study; [facility] - ED; ; Test Date: 2016-04-15; Pat Name: LIZZETTE PEDRAZA Department:; Room: -; Gender: F 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; : 1970 Requested By: Tena Blum; Order Number: [id number] Reading MD: French Johnson; Measurements; Intervals [place]; Rate: 77 P: 52; NC: 138 QRS: 52; QRSD: 92 T: 59; QT: 380; QTc: 432; Interpretive Statements; SINUS RHYTHM; ; Electronically Signed On 04-15-2016 21:22:43 EST by French Johnson; Radiology Order: Chest, 2 View (pa\E\lat) Test: Chest, 2 View (pa\E\lat) REASON FOR EXAMINATION: Chest Pain; PA AND LATERAL CHEST, 04/15/2016:; ; INDICATION: 46-year-old female with chest pain.; ; Comparison PA and lateral chest 01/10/2009.; ; FINDINGS: The mediastinum and cardiac silhouette are within normal limits. The; lung robertson are clear without acute consolidation, effusion or pneumothorax.; Skeletal structures are normal for age.; ; IMPRESSION:; No acute cardiopulmonary process.; ; ; ; Unreviewed; Radiology Order: CT Chest Angio R/O PE Test: CT Chest Angio R/O PE REASON FOR EXAMINATION: pleuritic chest pain elevated d-dimer; CT ANGIOGRAM CHEST: 04/15/2016.; ; Clinical history: Pleuritic chest pain. Evaluate for pulmonary embolism.; ; Comparison chest x-ray today, CT angiogram 06/30/2006.; ; Technique: Bolus of 100 mL-Isovue 370 with scanning through the chest with our; pulmonary CT angiogram protocol with coronal and sagittal thick slab; reconstructions.; ; The lung robertson are well inflated. There are some dependant minor dependent; atelectatic changes in the lower lung zones bilaterally. No cylindrical; bronchiectasis, pleural effusion, pleural-based mass or calcified pleural plaques; noted. No pneumothorax or pneumomediastinum. I see no acute infiltrate or mass.; No evidence of a nodule. Heart is not enlarged as no pericardial thickening or; effusion. The aorta is without aneurysm or dissection. The main, right and left; pulmonary arteries and the mediastinum are without filling defects. Lobar; arteries, segmental and subsegmental arteries are without filling defects or; vessel cutoff that would clearly define a pulmonary embolism. No pathologic; mediastinal or hilar adenopathy and no axillary, supraclavicular mass identified.; Small hiatal hernia. The anastomotic sutures or staple lines from gastric bypass; are noted. Bone windows show sternum, manubrium, clavicles, AC joints, humeral; heads and glenohumeral joints, scapulae, ribs and spine without destructive; lesion or compression deformity. There is mild dextrorotatory curve mid and; lower thoracic spine with small osteophytes. The upper abdomen shows that; portion of liver and spleen intact. No adrenal lesions are identified. The; upper pole right kidney seen was unremarkable.; ; Impression:; ; 1. There is no CT evidence of pulmonary thromboembolism, acute infiltrate,; pleural effusion, pneumothorax, pneumomediastinum, pulmonary nodule or other; acute finding.; ; 2. No aortic aneurysm or dissection.; ; 3. No mediastinal or hilar adenopathy nor other acute finding. 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 mm11 22:29 Discharge Assessment: patient administered narcotics - no. The following High Risk rs3 Discharge criteria are identified: None. Discharged to home with family. Condition: stable. Discharge instructions given to patient, Instructed on discharge instructions, follow up and referral plans. medication usage, Demonstrated understanding of instructions, medications, Pt was receptive of discharge instructions/ teaching. Prescriptions given X 2. CT Study completed. Property :Personal belongings accompany Pt. 22:31 Patient left the ED. rs3 Signatures: Dispatcher [employer] EDTena Flynn MD MD sd1 Amirah Morales, [place] Operator Unit deg Sue Calvert, Reg Reg gb Joseph Mathur, Reg Reg lg Kelechi Sheldon, DO DO mm11 Marianne Jasmine,RN RN rs3 Suhas Sánchez, MARKETING FINANCE MANAGER MARKETING FINANCE MANAGER jlf Jacky Cardoza rn1 Sujit Rocha, MARKETING FINANCE MANAGER MARKETING FINANCE MANAGER jmv Chart Complete MTDD
--- NOTE | 2016-04-17 23:33 | EDDOCDS ---
Physician Documentation [facility] Name: Terra Bennett Age: 46 yrs Sex: Female : 1970 Arrival Date: 04/15/2016 Time: 15:40 Bed OBSERVATION Private MD: Disposition: 04/15/16 21:39 Discharged to Home/Self Care. Impression: Chest pain, unspecified. - Condition is Stable. - Discharge Instructions: Angina Pectoris, Nonspecific Chest Pain, Chest Wall Pain, Gastroesophageal Reflux Disease, Adult. - Prescriptions for Protonix 40 mg Oral Tablet - take 1 tablet by ORAL route once daily; 30 tablet. Carafate 100 mg/mL Oral suspension - take 10 milliliter by ORAL route 4 times per day on an empty stomach 1 hour before meals and at bedtime; 250 milliliter. - Medication Reconciliation, Local Pharmacy Hours form. - Follow up: Mary Ivey DO; When: Call to arrange an appointment; Reason: Continuance of care. - Problem is an acute exacerbation. - Symptoms have improved. Historical: - Allergies: PENICILLINS (Hives); - Home Meds: 1. Zoloft 100 mg Oral tab 1 tab once daily 2. aspirin 81 mg Oral tab 1 tab once daily 3. multivitamin Oral cap 1 tablet daily - PMHx: Depression; Hypertension; Stroke (2005); - PSHx: Tonsillectomy; Cholecystectomy; Hysterectomy; Adenoidectomy; Gastric Bypass; Ear Tubes; - Social history: Smoking status: Patient states former smoker of tobacco. No barriers to communication noted, The patient speaks fluent Pashto. - Family history: Not pertinent. - : The pt / caregiver states he / she is not on anticoagulants. Home medication list is obtained from the patient. - Exposure Risk Screening:: None identified. 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 7 in. (170.18 cm) (R); Pain 4/10; 16:24 BP 126 / 87 (auto/); rs3 16:24 Pulse 80 MON; Pulse Ox 96% ; rs3 16:39 BP 124 / 84 (auto/); rs3 16:39 Pulse 82 MON; Pulse Ox 96% ; rs3 16:54 BP 127 / 88 (auto/); rs3 16:54 Pulse 84 MON; Pulse Ox 97% ; rs3 17:09 BP 123 / 82 (auto/); rs3 17:09 Pulse 86 MON; Pulse Ox 96% ; rs3 17:24 BP 125 / 88 (auto/); rs3 17:24 Pulse 76 MON; Pulse Ox 98% ; rs3 21:47 BP 120 / 90; Pulse 77; Resp 20; Temp 98.7(TE); Pulse Ox 96% on R/A; Pain 0/10; jmv 15:52 Body Mass Index 26.63 (77.11 kg, 170.18 cm) rn1 MDM: 15:46 Real Estate Leasing Agent/Pulse Ox/q 30 min VS ordered. sd1 15:46 IV Saline Lock ordered. sd1 15:46 Rhythm Strip to chart ordered. sd1 15:46 Undress patient appropriately for examination ordered. sd1 15:47 Basic Metabolic Profile Ordered. EDMS 15:47 CBC with Diff Ordered. EDMS 15:47 Cardiac Injury Profile Ordered. EDMS 15:47 Troponin Ordered. EDMS 15:47 ECG WITH READING ER PHYS+CARDIAG ordered. EDMS 15:56 GI Cocktail - (Alum-Mag Hydroxide-Simeth 30 ml, Lidocaine 10 ml, Hyoscyamine 10 ml) PO sd1 once; Pre-mixed 50mL unit dose ordered. 15:57 D-Dimer Quant Ordered. EDMS 15:58 Chest, 2 View (pa\E\lat) Ordered. EDMS 16:49 CBC with Diff Reviewed. sd1 16:49 D-Dimer Quant Reviewed. sd1 16:53 Basic Metabolic Profile Reviewed. sd1 16:53 Cardiac Injury Profile Reviewed. sd1 16:53 Troponin Reviewed. sd1 16:58 NS 0.9% 1000 ml IV at 250 mL/hr continuous ordered. sd1 16:58 CT Chest Angio R/O PE Ordered. EDMS 17:01 pantoprazole 40 mg IV at bolus once ordered. sd1 17:01 Sucralfate 1 grams PO once ordered. sd1 17:21 Financial registration complete. lg 17:22 [facility] [place] was [place] into [employer] and attached to record. lg 18:00 Redraw CIP &Troponin (put time in details section) ordered. sd1 18:00 Repeat EKG (put time details section) ordered. sd1 18:04 Repeat EKG (put time details section) complete. deg 18:04 Redraw CIP &Troponin (put time in details section) complete. deg 18:05 CARDIAC MARKER PANEL Ordered. EDMS 18:05 ECG WITH READING ER PHYS ordered. EDMS 21:02 CARDIAC MARKER PANEL Reviewed. mm11 21:02 Chest, 2 View (pa\E\lat) Reviewed. mm11 21:02 CT Chest Angio R/O PE Reviewed. mm11 04/16 09:49 T-Sheet-- Draft Copy was scanned into [employer] and attached to record. gb 09:49 ECG/EKG was scanned into [employer] and attached to record. gb Administered Medications: 04/15 16:04 Drug: GI Cocktail - (Alum-Mag Hydroxide-Simeth Suspension 225 mg-200 mg-25 mg/5 mL 30 rs3 ml, Lidocaine Liquid 2 % 10 ml, Hyoscyamine Liquid 10 ml) Route: PO; 17:16 Drug: NS 0.9% 1000 ml [sodium chloride 0.9 % intravenous solution] Route: IV; Rate: 250 rs3 mL/hr; Site: left antecubital; 17:16 Drug: pantoprazole 40 mg [pantoprazole 40 mg intravenous solution] Route: IV; Rate: rs3 bolus; Site: left antecubital; 17:17 Drug: Sucralfate 1 grams [sucralfate 1 gram tablet (1 tabs)] Route: PO; rs3 Signatures: Dispatcher [employer] EDGA Tena Blum MD MD sd1 Amirah Morales, Wad Compressor Operator Adjuster Unit deg Sue Calvert, Reg Reg gb Joseph Mathur, Reg Reg lg Kelechi Sheldon, DO mm11 Marianne JasmineRN RN rs3 The chart was reviewed and I authenticate all verbal orders and agree with the evaluation and treatment provided.Corrections: (The following items were deleted from the chart) 16:07 15:47 Chest, 1 view+XR ordered. EDMS EDMS Attachments: 17:22 [facility] [place] lg 04/16 09:49 T-Sheet-- Draft Copy 09:49 ECG/EKG gb Chart Complete MTDD
== END 2016-04-15 22:31 | disposition home or self-care (01) ==
LOC: M ED 15:40
DX: K21.9 Gastro-esophageal reflux disease without esophagitis (principal); I10 Essential (primary) hypertension; Z82.49 Family history of ischemic heart disease and other diseases of the circulatory system; Z88.0 Allergy status to penicillin; F32.9 Major depressive disorder, single episode, unspecified; Z98.84 Bariatric surgery status; Z86.73 Personal history of transient ischemic attack (TIA), and cerebral infarction without residual deficits; Z79.899 Other long term (current) drug therapy; Z79.82 Long term (current) use of aspirin; Z87.891 Personal history of nicotine dependence
CPT/HCPCS: 71020; 71275; 80048; 82550; 82553; 85025; 85379; 93005; 93041; 96374; 99285; C9113; Q9967

== ENCOUNTER → 2016-08-12 | Outpatient (CLI) | payer BC ==
--- NOTE | 2016-08-12 19:05 | REP ---
Left hip two views: There is no fracture or dislocation. Mineralization and joint spaces are normal. There are no calcifications or foreign bodies. No change from the comparison study of 04/16/2010. Impression: Negative left hip Signed by Rodney Carver MD 08/12/2016 06:57 P
== END ==
LOC: M RAD 17:41
PROVIDERS: ATTEND Nurse Practitioner Family
DX: M25.552 Pain in left hip (principal)

== ENCOUNTER 2016-08-23 19:09 | Emergency (ER) | payer BC ==
[~2016-08-23] VITALS: Ht 170.2 cm; Wt 77.1 kg
[2016-08-23 19:10] VITALS: BP 132/82
[2016-08-23] MEDS ORDERED: SERT-138 (19:24)
[2016-08-23] MEDS ORDERED: FURO20TA2 (19:24)
[2016-08-23] MEDS ORDERED: ONDA1TAB15 (19:24)
[2016-08-23] MEDS ORDERED: traMADol 50 MG TAB PO ONE (20:30)
--- NOTE | 2016-08-24 01:18 | REP ---
Clinical: Trauma. Technique: AP, lateral, bilateral oblique views of the left ankle. Findings: Moderate soft tissue swelling over the lateral malleolus consistent with inversion injury. No acute fracture or dislocation. Joint spaces and ankle mortise appear intact. No subcutaneous emphysema or radiodense foreign body. Impression: Lateral soft tissue swelling consistent with inversion injury. No acute fracture or dislocation. Signed by Chet Akins MD 08/24/2016 01:10 A
== END 2016-08-23 20:32 | disposition home or self-care (01) ==
LOC: M ED 20:19
DX: S93.412A Sprain of calcaneofibular ligament of left ankle, initial encounter (principal); W18.42XA Slipping, tripping and stumbling without falling due to stepping into hole or opening, initial encounter; Y92.89 Other specified places as the place of occurrence of the external cause; Y93.89 Activity, other specified; Y99.8 Other external cause status; E78.00 Pure hypercholesterolemia, unspecified; G43.909 Migraine, unspecified, not intractable, without status migrainosus; Z86.73 Personal history of transient ischemic attack (TIA), and cerebral infarction without residual deficits; Z79.899 Other long term (current) drug therapy; Z79.82 Long term (current) use of aspirin; Z88.0 Allergy status to penicillin

== ENCOUNTER → 2016-08-25 | Outpatient (RCR) | payer BC ==
[~2016-08-25] MED LIST changes: +FURO20TA2; +ONDA1TAB15; +SERT-138
== END ==
LOC: M PT 08-18 15:42
PROVIDERS: ATTEND Nurse Practitioner Family
DX: Z51.89 Encounter for other specified aftercare (principal); M25.552 Pain in left hip

== ENCOUNTER 2016-09-07 00:24 | Emergency (ER) | payer BC ==
[~2016-09-07] VITALS: Ht 170.2 cm; Wt 77.0 kg
[2016-09-07] MEDS ORDERED: MULT1TAB18 PO (00:47)
[2016-09-07] MEDS ORDERED: ASPIRIN 81 MG CHEW TABLET PO ONE (01:15)
[2016-09-07 01:36] LABS: BASO % 0.7 % (0.0-1.0); EOS # 0.1 K/mm3 (0.0-0.50); EOS % 1.4 % (0.0-3.0); LARGE UNSTAINED CELL # 0.1 K/mm3 (0.0-0.4); LARGE UNSTAINED CELL % 2.7 % (0.0-4.0); LYMPH # 1.9 K/mm3 (1.5-4.5); LYMPH % 34.3 % (24.0-44.0); MEAN CORPUSCULAR HEMOGLOBIN 33.5 pg (27.0-33.0); MEAN CORPUSCULAR HGB CONC 34.2 g/dl (32.0-36.5); MONO # 0.3 K/mm3 (0.0-0.8); MONO % 6.2 % (0.0-5.0); NEUTROPHILS # 2.9 K/mm3 (1.8-7.7); NEUTROPHILS % 54.9 % (36.0-66.0); PLATELET COUNT, AUTOMATED 234 k/mm3 (150-450); RED CELL DISTRIBUTION WIDTH 12.5 % (11.5-14.5); WHITE BLOOD COUNT 5.2 K/mm3 (4.0-10.0)
[2016-09-07 01:37] LABS: ANION GAP 8 MEQ/L (8-16); BLOOD UREA NITROGEN 17 MG/DL (7-18); CALCIUM LEVEL 9.1 MG/DL (8.5-10.1); CARBON DIOXIDE LEVEL 24 MEQ/L (21-32); CHLORIDE LEVEL 110 MEQ/L (98-107); CREATININE FOR GFR 0.61 MG/DL (0.55-1.02); GLOMERULAR FILTRATION RATE > 60.0 (>58); GLUCOSE, FASTING 89 MG/DL (70-105); POTASSIUM SERUM 3.8 MEQ/L (3.5-5.1); SODIUM LEVEL 142 MEQ/L (136-145)
--- NOTE | 2016-09-07 02:21 | REP ---
Clinical: Chest pain . Comparison: 04/15/2016 . Findings: The mediastinum and cardiac silhouette are stable and within normal limits for portable technique. The lung robertson are clear without acute consolidation, effusion, or pneumothorax. Skeletal structures are intact. Impression: Normal portable chest x-ray Signed by Chet Akins MD 09/07/2016 02:13 A
[2016-09-07] MEDS ORDERED: PERCOCET 5MG/325MG TAB PO ONE (02:30)
[2016-09-07] MEDS ORDERED: GI COCKTAIL 50ML BTL(HYOSCYAMINE/MAALOX/LIDOCAINE VISCOUS)(1:3:1) PO ONE (02:30)
[2016-09-07 02:43] LABS: ALBUMIN 3.4 GM/DL (3.2-5.2); ALBUMIN/GLOBULIN RATIO 1.03 (1.00-1.93); ALKALINE PHOSPHATASE 111 U/L (45-117); ALT/SGPT 30 U/L (12-78); AST/SGOT 27 U/L (15-37); BILIRUBIN,DIRECT < 0.1 MG/DL (0.0-0.2); BILIRUBIN,TOTAL 0.3 MG/DL (0.2-1.0); TOTAL PROTEIN 6.7 GM/DL (6.4-8.2)
[2016-09-07 04:53] VITALS: BP 117/70
--- NOTE | 2016-09-08 16:01 | ECGEPIP ---
Stationary ECG Study [facility] - ED Test Date: 2016-09-07 Pat Name: LIZZETTE PEDRAZA Department: Room: - Gender: F Measurement Operator: emily : 1970 Requested By: JAKE Toscano Order Number: [id number] Reading MD: Tena Blum Measurements Intervals [place] Rate: 74 P: 47 MI: 174 QRS: 45 QRSD: 97 T: 37 QT: 378 QTc: 420 Interpretive Statements SINUS RHYTHM SIMILAR 04/15/16 Electronically Signed On 09-08-2016 16:01:46 EDT by Tena Blum
== END 2016-09-07 05:02 | disposition home or self-care (01) ==
LOC: M ED 02:28
DX: M25.511 Pain in right shoulder (principal); R07.9 Chest pain, unspecified; I69.03 Monoplegia of upper limb following nontraumatic subarachnoid hemorrhage; F10.99 Alcohol use, unspecified with unspecified alcohol-induced disorder; Z98.84 Bariatric surgery status; Z90.79 Acquired absence of other genital organ(s)

== ENCOUNTER 2016-09-08 16:45 | Outpatient (RCR) | payer BC ==
[~2016-09-08 16:45] MED LIST changes: -FURO20TA2; +FURO20TA2 PO; +MULT1TAB18 PO; -ONDA1TAB15; +ONDA4TAB5; -SERT-138; +SERT-138 PO
== END 2016-09-24 ==
LOC: M PT 16:45
PROVIDERS: ATTEND Nurse Practitioner Family
DX: Z51.89 Encounter for other specified aftercare (principal); M25.552 Pain in left hip

== ENCOUNTER 2016-10-07 13:45 | Outpatient (RCR) | payer BC ==
[2016-10-24] MEDS ORDERED: OMEP20CA3 PO (20:20)
[2016-10-24] MEDS ORDERED: ROPI0.25 PO (20:20)
[2016-10-24] MEDS ORDERED: ASPI81TA21 PO (20:20)
[2016-10-24] MEDS ORDERED: BUPR150T3 PO (20:20)
[2016-10-24] MEDS ORDERED: VITMTA PO (20:20)
== END 2016-10-25 ==
LOC: M PT 13:45
PROVIDERS: ATTEND Nurse Practitioner Family
DX: Z51.89 Encounter for other specified aftercare (principal); M25.552 Pain in left hip

== ENCOUNTER 2016-10-24 15:52 | Inpatient (IN) | payer BC ==
[~2016-10-24] VITALS: Ht 170.2 cm; Wt 85.0 kg
[2016-10-24] MEDS ORDERED: NS 1,000 ML IV ONE (16:15)
[2016-10-24] MEDS ORDERED: ONDANSETRON 4MG/2ML VIAL (J2405) IV ONE (16:15)
[2016-10-24] MEDS: HYDROmorphone HCL 1 MG/ML SYRINGE (J1170) IV PRN ×4 (16:37→19:58)
[2016-10-24 16:48] LABS: BASO % 0.2 % (0.0-1.0); EOS # 0.1 K/mm3 (0.0-0.50); EOS % 0.6 % (0.0-3.0); LARGE UNSTAINED CELL # 0.1 K/mm3 (0.0-0.4); LARGE UNSTAINED CELL % 0.9 % (0.0-4.0); LYMPH # 1.4 K/mm3 (1.5-4.5); LYMPH % 13.3 % (24.0-44.0); MEAN CORPUSCULAR HGB CONC 33.5 g/dl (32.0-36.5); MEAN CORPUSCULAR VOLUME 98.4 fl (80.0-96.0); MONO # 0.6 K/mm3 (0.0-0.8); MONO % 6.3 % (0.0-5.0); NEUTROPHILS # 7.9 K/mm3 (1.8-7.7); NEUTROPHILS % 78.8 % (36.0-66.0); PLATELET COUNT, AUTOMATED 196 k/mm3 (150-450); RED CELL DISTRIBUTION WIDTH 12.6 % (11.5-14.5)
[2016-10-24 17:05] LABS: ALBUMIN 3.6 GM/DL (3.2-5.2); ALBUMIN/GLOBULIN RATIO 0.88 (1.00-1.93); ALKALINE PHOSPHATASE 108 U/L (45-117); ALT/SGPT 25 U/L (12-78); AMYLASE 52 U/L (25-115); ANION GAP 8 MEQ/L (8-16); AST/SGOT 33 U/L (15-37); BILIRUBIN,DIRECT < 0.1 MG/DL (0.0-0.2); BILIRUBIN,TOTAL 0.6 MG/DL (0.2-1.0); BLOOD UREA NITROGEN 9 MG/DL (7-18); CALCIUM LEVEL 8.8 MG/DL (8.5-10.1); CARBON DIOXIDE LEVEL 24 MEQ/L (21-32); CHLORIDE LEVEL 107 MEQ/L (98-107); CREATININE FOR GFR 0.69 MG/DL (0.55-1.02); GLOMERULAR FILTRATION RATE > 60.0 (>58); GLUCOSE, FASTING 79 MG/DL (70-105); SODIUM LEVEL 139 MEQ/L (136-145); TOTAL PROTEIN 7.7 GM/DL (6.4-8.2)
[2016-10-24 17:14] LABS: POTASSIUM SERUM 5.3 MEQ/L (3.5-5.1)
[2016-10-24] MEDS ORDERED: ISOVUE-370 76% 100ML VIAL (Q9967) As Ordered ONE (17:18)
--- NOTE | 2016-10-24 17:50 | REPUSA ---
CT of the abdomen and pelvis with contrast Clinical statement: Pain. Technique: Multiple axial CT images were obtained from the base of the lungs through the floor of the pelvis utilizing 5 mm axial slices after administration of nonionic intravenous contrast. Coronal an d sagittal reconstructions were also obtained. Comparison: 07/21/2015. Findings: Chest: The visualized lung bases are clear. Abdomen: The liver, spleen, pancreas, kidneys, and adrenal glands are unremarkable. The aorta is with in normal limits. There is no evidence of abdominal lymphadenopathy or ascites. Pelvis: There is focal bowel wall thickening with surrounding inflammation in the sigmoid colon consi stent with acute diverticulitis. There is no evidence of abscess or perforation. Now bowel obstructio n is seen. The urinary bladder is within normal limits. The other pelvic structures appear grossly in tact. There is no evidence of pelvic lymphadenopathy or ascites. Bones: There are no suspicious osseous abnormalities seen. Impression: Acute sigmoid diverticulitis as described.
[2016-10-24] MEDS ORDERED: HYDROmorphone HCL 1 MG/ML SYRINGE (J1170) IV ONE (18:15)
[2016-10-24] MEDS: NS 1,000 ML IV SCH (19:39)
[2016-10-24] MEDS ORDERED: ACETAMINOPHEN TAB 650MG DOSE (2X325MG) PO PRN (19:45)
[2016-10-24] MEDS ORDERED: ONDANSETRON 4MG/2ML VIAL (J2405) IV PRN (19:45)
[2016-10-24] MEDS ORDERED: MORPHINE 10 MG/ML 1ML VIAL IV PRN (19:45)
[2016-10-24] MEDS ORDERED: zolPIDEM TARTRATE 5 MG TAB PO PRN (19:45)
[2016-10-24] MEDS: CIPROFLOXACIN 400 MG in APPROPRIATE DILUENT 1 EA IV SCH (20:00)
[2016-10-24] MEDS ORDERED: ASPI81TA21 PO (20:20)
[2016-10-24] MEDS ORDERED: OMEP20CA3 PO (20:20)
[2016-10-24] MEDS ORDERED: VITMTA PO (20:20)
[2016-10-24] MEDS ORDERED: BUPR150T3 PO (20:20)
[2016-10-24] MEDS ORDERED: ROPI0.25 PO (20:20)
[2016-10-24] MEDS: PERCOCET 5MG/325MG TAB PO PRN (20:21)
--- NOTE | 2016-10-24 20:28 | HPE ---
DATE OF ADMISSION: 10/24/2016 PRIMARY CARE PROVIDER : Dr. Ivey. ATTENDING PHYSICIAN: Dr. Najera. CHIEF COMPLAINT: Worsening lower abdominal pain for three days. HISTORY OF PRESENT ILLNESS: The patient is a 46-year-old white female with several chronic medical conditions listed below, who came to the emergency room (ER) for evaluation of above complaint. History is provided by herself, as well as the who is with her in the ER. Per the patient, she has a history of gastric bypass surgery a few years ago, and also she has a history of rectal bleeding and she is following with Dr. Villanueva in [place] and she had a colonoscopy done last year which only showed a few polyps which were removed. She was in her usual health condition until three days ago when she developed abdominal pain. The pain is located in her right lower quadrant plus lower abdomen. Sharp pain, worse pain about 9/10 in severity. No radiation. Did not identify anything to make the pain worse or better. The patient's pain is persistent. Also, she has some nausea and vomiting and a few episodes of diarrhea, but denies fever, no chills. No recent travel history. No eating out recently. In the ER, she underwent CT of the abdomen and pelvis which demonstrates she has diverticulitis in her sigmoid colon. Medicine service was called for admission. REVIEW OF SYSTEMS: Denies fever. No chills, no headache, no blurred vision. No shortness of breath. No chest pain. No coughing. Positive nausea and vomiting but no hematemesis. Positive abdominal pain, diarrhea. No dysuria. No tingling, numbness, weakness in arms or lower extremities. All other systems reviewed were negative. PAST MEDICAL HISTORY: 1. Acid reflux. 2. Anxiety. 3. Morbid obesity, status post gastric bypass surgery. PAST SURGICAL HISTORY: 1. Status post gastric bypass surgery. 2. Status post cholecystectomy, hysterectomy, and tonsillectomy. SOCIAL HISTORY: Denies tobacco use. Denies alcohol abuse. Denies illicit drug abuse. She lives with her . She is a [employer]. FAMILY HISTORY: Both parents had history of coronary artery disease and multiple stenting and bypass surgery. ALLERGIES: Allergic to PENICILLIN. MEDICATIONS: - omeprazole 20 mg by mouth daily - aspirin 81 mg by mouth daily - Zoloft 100 mg by mouth daily - Lasix 20 mg by mouth daily - multiple vitamin once a day PHYSICAL EXAMINATION: VITAL SIGNS: Temperature is 100 degrees, heart rate is 95, respiratory rate 18, blood pressure 130/78, oxygen saturation 98% on room air. GENERAL: She is awake, alert, and oriented times three. She is in acute pain distress. HEENT: Atraumatic. Pupils equal, round, react to light. No jaundice. Extraocular muscles intact. Ears, nose, throat normal. Mouth mucus is dry. NECK: No jugular venous distention (JVD). No bruits. LUNGS: Clear. No wheezing, no crackles. HEART: S1, S2 regular. No murmur. Mild tachycardia. ABDOMEN: Soft. Bowel sounds positive. There is tenderness in her right lower quadrant as well as lower abdomen, but no rebound. LOWER EXTREMITIES: No edema in bilateral lower extremities. NEUROLOGIC: Nonfocal with normal sensation, normal muscle strength, and normal reflexes. SKIN: No rash. PSYCHOLOGIC: No acute psychosis. LABORATORY DATA: CBC and differential: WBC 10, hemoglobin and hematocrit 13 over nine, platelets 196. Sodium 139, potassium 5.3, chloride 107, bicarbonate 24, BUN 9.0, creatinine 0.7, glucose 79. CT of abdomen and pelvis demonstrated acute sigmoid colon diverticulitis. IMPRESSION: 1. Acute abdominal pain due to acute sigmoid diverticulitis. 2. Acid reflux. 3. Anxiety, depression. 4. Morbid obesity. PLAN: The patient will be admitted to medical/surgical floor. She is inpatient. She presented with three days of right lower quadrant and lower abdominal pain. CT scan demonstrated acute sigmoid diverticulitis without perforation or abscess formation. We will treat her medically. I will start her on intravenous (IV) Cipro and Flagyl. We will start her on a clear liquid diet. Dr. Najera will followup tomorrow. CRISSY
[2016-10-24 21:00] VITALS: BP 103/55
[2016-10-24] MEDS: PANTOPRAZOLE 40MG INJ (PROTONIX) (C9113) IV SCH (21:26)
[2016-10-24] MEDS: metroNIDAZOLE 500 MG in APPROPRIATE DILUENT 1 EA IV SCH (21:26)
[2016-10-24] MEDS: SERTRALINE 100 MG TAB PO SCH (22:31)
[2016-10-24] MEDS: rOPINIRole 0.25 MG TAB(REQUIP) PO SCH (22:31)
[2016-10-25] MEDS: PERCOCET 5MG/325MG TAB PO PRN ×4 (01:16→16:27)
[2016-10-25] MEDS: metroNIDAZOLE 500 MG in APPROPRIATE DILUENT 1 EA IV SCH ×3 (04:53→21:45)
[2016-10-25] MEDS: NS 1,000 ML IV SCH ×2 (04:53→18:23)
[2016-10-25 05:03] VITALS: BP 105/59
[2016-10-25 06:14] LABS: BASO % 0.3 % (0.0-1.0); EOS % 0.9 % (0.0-3.0); LARGE UNSTAINED CELL # 0.1 K/mm3 (0.0-0.4); LARGE UNSTAINED CELL % 1.6 % (0.0-4.0); LYMPH % 21.7 % (24.0-44.0); MEAN CORPUSCULAR HEMOGLOBIN 33.5 pg (27.0-33.0); MEAN CORPUSCULAR HGB CONC 33.6 g/dl (32.0-36.5); MEAN CORPUSCULAR VOLUME 99.8 fl (80.0-96.0); MONO # 0.4 K/mm3 (0.0-0.8); MONO % 8.3 % (0.0-5.0); NEUTROPHILS % 67.2 % (36.0-66.0); PLATELET COUNT, AUTOMATED 149 k/mm3 (150-450); RED CELL DISTRIBUTION WIDTH 12.6 % (11.5-14.5); WHITE BLOOD COUNT 4.5 K/mm3 (4.0-10.0)
[2016-10-25 06:24] LABS: ANION GAP 9 MEQ/L (8-16); BLOOD UREA NITROGEN 5 MG/DL (7-18); CALCIUM LEVEL 8.7 MG/DL (8.5-10.1); CARBON DIOXIDE LEVEL 25 MEQ/L (21-32); CHLORIDE LEVEL 112 MEQ/L (98-107); CREATININE FOR GFR 0.49 MG/DL (0.55-1.02); GLOMERULAR FILTRATION RATE > 60.0 (>58); GLUCOSE, FASTING 99 MG/DL (70-105); SODIUM LEVEL 146 MEQ/L (136-145)
--- NOTE | 2016-10-25 06:36 | IPNPDOC ---
Subjective Date Seen The patient was seen on 10/25/16. Subjective Chief Complaint/HPI The patient is a 46-year-old female admitted with a reason for visit of Acute Diverticulitis. Events since last encounter no fever orver night , pain a little better, no nausea or vomiting or diarrhea, no chest pain or sob , no cough or phlegm Objective Physical Examination General Exam: Positive: Alert, Cooperative, No Acute Distress Eye Exam: Positive: PERRLA, Conjunctiva & lids normal, EOMI, Negative: Sclera icteric ENT Exam: Positive: Atraumatic, Mucous membr. moist/pink, Pharynx Normal Neck Exam: Positive: Supple, Negative: JVD, thyromegaly Chest Exam: Positive: Clear to auscultation, Normal air movement Heart Exam: Positive: Rate Normal, Regular Rhythm, Normal S1, Normal S2, Negative: Murmurs, Rubs Abdomen Exam: Positive: BS Hypoactive, Tenderness Extremity Exam: Positive: Normal pulses, Negative: Clubbing, Cyanosis, Edema Skin Exam: Positive: Nl turgor and temperature, Negative: Rash, Breakdown Assessment /Plan Problems (1) Acute diverticulitis Status: Acute Problem Text: On cipro and flagyl did not require any morphine overnight. (2) Anxiety and depression Status: Chronic Problem Text: on bupropion and sertraline (3) Restless leg syndrome Status: Chronic Problem Text: ropinirole Plan/VTE VTE Prophylaxis Ordered?: Yes VS, I&O, 24H, Fishbone Vital Signs/I&O Vital Signs Date Time Temp Pulse Resp B/P (MAP) Pulse Ox O2 Delivery O2 Flow Rate FiO2 10/25/16 05:03 97.2 79 18 105/59 (74) 94 Room Air I&O- Last 24 Hours up to 6 AM 10/25/16 05:59 Intake Total 1220 ml Balance 1220 ml Laboratory Data 24H LABS Laboratory Tests 2 10/24/16 16:16: White Blood Count 10.0, Red Blood Count 3.96L, Hemoglobin 13.1, Hematocrit 39.0 , Mean Corpuscular Volume 98.4H, Mean Corpuscular Hemoglobin 33.0, Mean Corpuscular Hemoglobin Concent 33.5, Red Cell Distribution Width 12.6, Platelet Count 196, Neutrophils (%) (Auto) 78.8H, Lymphocytes (%) (Auto) 13.3L, Monocytes (%) (Auto) 6.3H, Eosinophils (%) (Auto) 0.6, Basophils (%) (Auto) 0.2 , Neutrophils # (Auto) 7.9H, Lymphocytes # (Auto) 1.4L, Monocytes # (Auto) 0.6, Eosinophils # (Auto) 0.1, Basophils # (Auto) 0.0, Large Unclassified Cells % 0.9 , Large Unclassified Cells # 0.1, Anion Gap 8, Glomerular Filtration Rate > 60.0 , Lactic Acid Level 1.2, Calcium Level 8.8, Aspartate Amino Transf (AST/SGOT) 33 , Alanine Aminotransferase (ALT/SGPT) 25, Alkaline Phosphatase 108, Total Bilirubin 0.6, Direct Bilirubin < 0.1, Total Protein 7.7, Albumin 3.6, Albumin/ Globulin Ratio 0.88L, Amylase Level 52, Lipase 168 10/24/16 16:21: Urine Appearance CLEAR, Urine Color STRAW, Urine pH 6.0, Urine Specific [place] 1.001L, Urine Protein NEGATIVE, Urine Glucose (UA) NEGATIVE, Urine Ketones NEGATIVE, Urine Urobilinogen 0.2, Urine Bilirubin NEGATIVE, Urine Leukocyte Esterase TRACEH, Urine Blood NEGATIVE, Urine Nitrite NEGATIVE, Urine WBC (Auto) 3, Urine RBC (Auto) 2, Urine Hyaline Casts (Auto) 0, Urine Bacteria (Auto) 1+H, Urine Squamous Epithelial Cells 1, Urine Sperm (Auto) 10/25/16 05:48: White Blood Count 4.5, Red Blood Count 3.37L, Hemoglobin 11.3L, Hematocrit 33.6L , Mean Corpuscular Volume 99.8H, Mean Corpuscular Hemoglobin 33.5H, Mean Corpuscular Hemoglobin Concent 33.6, Red Cell Distribution Width 12.6, Platelet Count 149L, Neutrophils (%) (Auto) 67.2H, Lymphocytes (%) (Auto) 21.7L, Monocytes (%) (Auto) 8.3H, Eosinophils (%) (Auto) 0.9, Basophils (%) (Auto) 0.3 , Neutrophils # (Auto) 3.0, Lymphocytes # (Auto) 1.0L, Monocytes # (Auto) 0.4, Eosinophils # (Auto) 0.0, Basophils # (Auto) 0.0, Large Unclassified Cells % 1.6 , Large Unclassified Cells # 0.1, Anion Gap 9, Glomerular Filtration Rate > 60.0 , Calcium Level 8.7, Blood Urea Nitrogen 5L, Creatinine 0.49L, Sodium Level 146# H, Potassium Level 4.0#, Chloride Level 112H, Carbon Dioxide Level 25 CBC/BMP Laboratory Tests 10/24/16 16:16 Red Blood Count 3.96 L, Mean Corpuscular Volume 98.4 H, Mean Corpuscular Hemoglobin 33.0, Mean Corpuscular Hemoglobin Concent 33.5, Red Cell Distribution Width 12.6, Neutrophils (%) (Auto) 78.8 H, Lymphocytes (%) (Auto) 13.3 L, Monocytes (%) (Auto) 6.3 H, Eosinophils (%) (Auto) 0.6, Basophils (%) ( Auto) 0.2, Neutrophils # (Auto) 7.9 H, Lymphocytes # (Auto) 1.4 L, Monocytes # ( Auto) 0.6, Eosinophils # (Auto) 0.1, Basophils # (Auto) 0.0 10/25/16 05:48 Red Blood Count 3.37 L, Mean Corpuscular Volume 99.8 H, Mean Corpuscular Hemoglobin 33.5 H, Mean Corpuscular Hemoglobin Concent 33.6, Red Cell Distribution Width 12.6, Neutrophils (%) (Auto) 67.2 H, Lymphocytes (%) (Auto) 21.7 L, Monocytes (%) (Auto) 8.3 H, Eosinophils (%) (Auto) 0.9, Basophils (%) ( Auto) 0.3, Neutrophils # (Auto) 3.0, Lymphocytes # (Auto) 1.0 L, Monocytes # ( Auto) 0.4, Eosinophils # (Auto) 0.0, Basophils # (Auto) 0.0, Calcium Level 8.7 Microbiology Microbiology 10/24/16 Urine Culture, Received Pending RU HOPKINS MD Oct 25, 2016 06:36
[2016-10-25 08:00] VITALS: BP 121/60
[2016-10-25] MEDS: CIPROFLOXACIN 400 MG in APPROPRIATE DILUENT 1 EA IV SCH ×2 (09:26→20:05)
[2016-10-25] MEDS: MULTIVITAMINS/MINERALS THERAP 1 TAB PO SCH (09:27)
[2016-10-25] MEDS: buPROPion **XL** TABLET 150MG (WELLBUTRIN XL) PO SCH (09:27)
[2016-10-25] MEDS: ASPIRIN 81 MG ENTERIC TAB PO SCH (09:27)
[2016-10-25] MEDS: SERTRALINE 100 MG TAB PO SCH ×2 (09:27→20:42)
[2016-10-25] MEDS: ENOXAPARIN 40 MG/0.4 ML SYRINGE (J1650) SC SCH (09:27)
[2016-10-25 16:00] VITALS: BP 113/70
[2016-10-25 20:00] VITALS: BP 106/60
[2016-10-25] MEDS: PANTOPRAZOLE 40MG INJ (PROTONIX) (C9113) IV SCH (20:42)
[2016-10-25] MEDS: rOPINIRole 0.25 MG TAB(REQUIP) PO SCH (20:42)
[2016-10-26] VITALS: BP 118/63
[2016-10-26] MEDS: PERCOCET 5MG/325MG TAB PO PRN (00:41)
[2016-10-26] MEDS: metroNIDAZOLE 500 MG in APPROPRIATE DILUENT 1 EA IV SCH ×2 (05:52→12:22)
[2016-10-26 07:20] LABS: MEAN CORPUSCULAR HEMOGLOBIN 33.7 pg (27.0-33.0); MEAN CORPUSCULAR HGB CONC 33.3 g/dl (32.0-36.5); MEAN CORPUSCULAR VOLUME 101.2 fl (80.0-96.0); RED CELL DISTRIBUTION WIDTH 12.5 % (11.5-14.5); WHITE BLOOD COUNT 3.9 K/mm3 (4.0-10.0)
[2016-10-26 07:33] LABS: ANION GAP 6 MEQ/L (8-16); BLOOD UREA NITROGEN 1 MG/DL (7-18); CALCIUM LEVEL 8.9 MG/DL (8.5-10.1); CARBON DIOXIDE LEVEL 27 MEQ/L (21-32); CHLORIDE LEVEL 113 MEQ/L (98-107); CREATININE FOR GFR 0.56 MG/DL (0.55-1.02); GLOMERULAR FILTRATION RATE > 60.0 (>58); GLUCOSE, FASTING 93 MG/DL (70-105); MAGNESIUM LEVEL 1.9 MG/DL (1.8-2.4); SODIUM LEVEL 146 MEQ/L (136-145)
[2016-10-26 08:00] VITALS: BP 120/80
[2016-10-26] MEDS: SERTRALINE 100 MG TAB PO SCH ×2 (08:09→21:32)
[2016-10-26] MEDS: ENOXAPARIN 40 MG/0.4 ML SYRINGE (J1650) SC SCH (08:09)
[2016-10-26] MEDS: ASPIRIN 81 MG ENTERIC TAB PO SCH (08:10)
[2016-10-26] MEDS: buPROPion **XL** TABLET 150MG (WELLBUTRIN XL) PO SCH (08:10)
[2016-10-26] MEDS: MULTIVITAMINS/MINERALS THERAP 1 TAB PO SCH (08:10)
[2016-10-26] MEDS: CIPROFLOXACIN 400 MG in APPROPRIATE DILUENT 1 EA IV SCH (08:10)
[2016-10-26] MEDS: NS 1,000 ML IV SCH (08:11)
[2016-10-26 16:00] VITALS: BP 120/72
--- NOTE | 2016-10-26 16:34 | IPNPDOC ---
Date Seen The patient was seen on 10/26/16. Progress Note Hospitalist Progress Note Subjective: Patient states that her abdominal pain has resolved, and she is hungry Objective: Physical Exam: Vitals: Vital Sign - Last 24 Hours 10/25/16 10/25/16 10/26/16 10/26/16 16:57 20:00 00:00 00:41 Temp 100.8 98.7 Pulse 80 73 Resp 18 20 18 B/P (MAP) 106/60 (75) 118/63 (81) Pulse Ox 95 96 O2 Delivery Room Air Room Air Room Air 10/26/16 10/26/16 10/26/16 01:11 08:00 16:00 Temp 97.8 99.6 Pulse 69 69 Resp 18 18 18 B/P (MAP) 120/80 (93) 120/72 (88) Pulse Ox 94 96 O2 Delivery Room Air Room Air General: Awake, alert, no acute distress HEENT: Normocephalic, atraumatic, extraocular movements intact CV: Regular Rate and rhythm Lungs: Clear to auscultation bilaterally Abd: Soft, nontender, nondistended Extremities: No edema Neuro: Alert and oriented 3, normal speech Psych: Normal mood and affect Labs and Imaging: Laboratory Tests 10/26/16 06:59 Red Blood Count 3.33 L, Mean Corpuscular Volume 101.2 H, Mean Corpuscular Hemoglobin 33.7 H, Mean Corpuscular Hemoglobin Concent 33.3, Red Cell Distribution Width 12.5, Calcium Level 8.9 Assessment and Plan: 46-year-old female with GERD, anxiety, morbid obesity status post gastric bypass , who presented to the emergency department with lower abdominal pain and is admitted with acute diverticulitis and UTI. 1. Acute diverticulitis: The patient's white count has been normal, but she did have a fever last night to 100.8. However, she is clinically improving. We will transition her from IV Cipro and Flagyl to the oral formulations. We will stop her fluids and advance her diet as tolerated. Currently holding home Lasix. 2. UTI: Urine culture grew Escherichia coli, which should be covered by the Cipro that she is already on. 3. Hyperkalemia: Potassium upon admission was 5.3, this has now resolved. We'll continue to monitor. 4. Anxiety: Continue home Wellbutrin, Zoloft. 5. GERD: Continue PPI DVT prophylaxis: Lovenox Dispo: potentially home tomorrow, if she is tolerating a regular diet and afebrile VS, I&O, 24H, [place] Vital Signs/I&O Vital Signs Date Time Temp Pulse Resp B/P (MAP) Pulse Ox O2 Delivery O2 Flow Rate FiO2 10/26/16 16:00 99.6 69 18 120/72 (88) 96 Room Air I&O- Last 24 Hours up to 6 AM 10/26/16 06:00 Intake Total 4660 ml Output Total 2875 ml Balance 1785 ml Laboratory Data 24H LABS Laboratory Tests 2 10/26/16 06:59: Anion Gap 6L, Glomerular Filtration Rate > 60.0, Blood Urea Nitrogen 1#L, Creatinine 0.56, Sodium Level 146H, Potassium Level 4.0, Chloride Level 113H, Carbon Dioxide Level 27, Calcium Level 8.9, Magnesium Level 1.9 CBC/BMP Laboratory Tests 10/26/16 06:59 Red Blood Count 3.33 L, Mean Corpuscular Volume 101.2 H, Mean Corpuscular Hemoglobin 33.7 H, Mean Corpuscular Hemoglobin Concent 33.3, Red Cell Distribution Width 12.5, Calcium Level 8.9 Microbiology Microbiology 10/24/16 Urine Culture - Final, Complete Escherichia Coli ZACK LOMAS Oct 26, 2016 16:34
[2016-10-26] MEDS: CIPROFLOXACIN 500 MG TAB PO SCH (17:05)
[2016-10-26 20:00] VITALS: BP 134/98
[2016-10-26] MEDS: rOPINIRole 0.25 MG TAB(REQUIP) PO SCH (21:32)
[2016-10-26] MEDS: metroNIDAZOLE (FLAGYL) 500 MG TAB PO SCH (21:32)
[2016-10-27] VITALS: BP 136/88
[2016-10-27] MEDS: metroNIDAZOLE (FLAGYL) 500 MG TAB PO SCH (06:25)
[2016-10-27] MEDS: CIPROFLOXACIN 500 MG TAB PO SCH (06:25)
[2016-10-27 07:01] LABS: BASO % 0.3 % (0.0-1.0); EOS # 0.1 K/mm3 (0.0-0.50); EOS % 2.1 % (0.0-3.0); LARGE UNSTAINED CELL # 0.1 K/mm3 (0.0-0.4); LARGE UNSTAINED CELL % 2.4 % (0.0-4.0); LYMPH # 0.9 K/mm3 (1.5-4.5); LYMPH % 30.5 % (24.0-44.0); MEAN CORPUSCULAR HEMOGLOBIN 33.2 pg (27.0-33.0); MEAN CORPUSCULAR HGB CONC 32.9 g/dl (32.0-36.5); MEAN CORPUSCULAR VOLUME 100.9 fl (80.0-96.0); MONO # 0.2 K/mm3 (0.0-0.8); MONO % 8.4 % (0.0-5.0); NEUTROPHILS # 1.6 K/mm3 (1.8-7.7); NEUTROPHILS % 56.3 % (36.0-66.0); PLATELET COUNT, AUTOMATED 185 k/mm3 (150-450); RED CELL DISTRIBUTION WIDTH 12.4 % (11.5-14.5); WHITE BLOOD COUNT 2.8 K/mm3 (4.0-10.0)
[2016-10-27 07:28] LABS: ANION GAP 5 MEQ/L (8-16); BLOOD UREA NITROGEN 4 MG/DL (7-18); CALCIUM LEVEL 8.8 MG/DL (8.5-10.1); CARBON DIOXIDE LEVEL 29 MEQ/L (21-32); CHLORIDE LEVEL 111 MEQ/L (98-107); CREATININE FOR GFR 0.57 MG/DL (0.55-1.02); GLOMERULAR FILTRATION RATE > 60.0 (>58); GLUCOSE, FASTING 96 MG/DL (70-105); MAGNESIUM LEVEL 1.8 MG/DL (1.8-2.4); POTASSIUM SERUM 3.6 MEQ/L (3.5-5.1); SODIUM LEVEL 145 MEQ/L (136-145)
[2016-10-27 08:00] VITALS: BP 123/83
[2016-10-27] MEDS ORDERED: PANTOPRAZOLE 40MG TAB (PROTONIX) PO SCH (09:00)
[2016-10-27] MEDS: ASPIRIN 81 MG ENTERIC TAB PO SCH (09:04)
[2016-10-27] MEDS: buPROPion **XL** TABLET 150MG (WELLBUTRIN XL) PO SCH (09:04)
[2016-10-27] MEDS: ENOXAPARIN 40 MG/0.4 ML SYRINGE (J1650) SC SCH (09:04)
[2016-10-27] MEDS: MULTIVITAMINS/MINERALS THERAP 1 TAB PO SCH (09:04)
[2016-10-27] MEDS: SERTRALINE 100 MG TAB PO SCH (09:04)
[2016-10-27] MEDS ORDERED: CIPR-249 PO (09:57)
[2016-10-27] MEDS ORDERED: FLAG500T PO (09:57)
--- NOTE | 2016-10-27 10:02 | DS.PDOC ---
Discharge Summary General Date of Admission Oct 24, 2016 Date of Discharge 10/27/2016 Discharge Summary DISCHARGE SUMMARY DATE OF ADMISSION: 10/24/2016 DATE OF DISCHARGE: 10/27/2016 PRIMARY CARE PHYSICIAN: Dr. Mary Ivey DISCHARGE DIAGNOS(E)S: Acute sigmoid diverticulitis UTI Hyperkalemia HPI & HOSPITAL COURSE: 46-year-old female with GERD, anxiety, morbid obesity status post gastric bypass , who presented to the emergency department with lower abdominal pain and is admitted with acute diverticulitis and UTI. 1. Acute diverticulitis: The patient's white count has been normal, and she is now afebrile for >24H. She is clinically improving and tolerating a regular diet. Continue oral Cipro and Flagyl. Restart home Lasix at discharge. 2. UTI: Urine culture grew Escherichia coli, which should be covered by the Cipro that she is already on. 3. Hyperkalemia: Potassium upon admission was 5.3, this has now resolved on its own. 4. Anxiety: Continue home Wellbutrin, Zoloft. 5. GERD: Continue PPI DVT prophylaxis: Lovenox PHYSICAL EXAMINATION ON DISCHARGE: VITAL SIGNS: Vital Signs Date Time Temp Pulse Resp B/P (MAP) Pulse Ox O2 Delivery O2 Flow Rate FiO2 10/27/16 08:00 99.5 64 18 123/83 (96) 95 Room Air General: Awake, alert, no acute distress HEENT: Normocephalic, atraumatic, extraocular movements intact CV: Regular Rate and rhythm Lungs: Clear to auscultation bilaterally Abd: Soft, nontender, nondistended Extremities: No edema Neuro: Alert and oriented 3, normal speech Psych: Normal mood and affect DISPOSITION: Home DISCHARGE INSTRUCTIONS: Follow-up with PCP within one week. Patient was given a work note that stated she could return to work after she was cleared by her PCP at the follow-up appointment. If symptoms return, or if you experience worsening of your symptoms, please call your doctor or return to the emergency department. ITEMS THAT NEED OUTPATIENT FOLLOWUP: None Patient was seen and examined by me on the day of discharge, and I spent a total time of less than 30 minutes on this discharge. Vital Signs/I&Os Vital Signs Date Time Temp Pulse Resp B/P (MAP) Pulse Ox O2 Delivery O2 Flow Rate FiO2 10/27/16 08:00 99.5 64 18 123/83 (96) 95 Room Air I&O- Last 24 Hours up to 6 AM 10/27/16 06:00 Intake Total 1800 ml Output Total 2200 ml Balance -400 ml Laboratory Data Labs 24H Laboratory Tests 2 10/27/16 06:29: White Blood Count 2.8L, Red Blood Count 3.45L, Hemoglobin 11.4L, Hematocrit 34.8L, Mean Corpuscular Volume 100.9H, Mean Corpuscular Hemoglobin 33.2H, Mean Corpuscular Hemoglobin Concent 32.9, Red Cell Distribution Width 12.4, Platelet Count 185, Neutrophils (%) (Auto) 56.3, Lymphocytes (%) (Auto) 30.5, Monocytes ( %) (Auto) 8.4H, Eosinophils (%) (Auto) 2.1, Basophils (%) (Auto) 0.3, Neutrophils # (Auto) 1.6L, Lymphocytes # (Auto) 0.9L, Monocytes # (Auto) 0.2, Eosinophils # (Auto) 0.1, Basophils # (Auto) 0.0, Large Unclassified Cells % 2.4 , Large Unclassified Cells # 0.1, Anion Gap 5L, Glomerular Filtration Rate > 60.0, Blood Urea Nitrogen 4#L, Creatinine 0.57, Sodium Level 145, Potassium Level 3.6, Chloride Level 111H, Carbon Dioxide Level 29, Calcium Level 8.8, Magnesium Level 1.8 CBC/BMP Laboratory Tests 10/27/16 06:29 Red Blood Count 3.45 L, Mean Corpuscular Volume 100.9 H, Mean Corpuscular Hemoglobin 33.2 H, Mean Corpuscular Hemoglobin Concent 32.9, Red Cell Distribution Width 12.4, Neutrophils (%) (Auto) 56.3, Lymphocytes (%) (Auto) 30.5, Monocytes (%) (Auto) 8.4 H, Eosinophils (%) (Auto) 2.1, Basophils (%) ( Auto) 0.3, Neutrophils # (Auto) 1.6 L, Lymphocytes # (Auto) 0.9 L, Monocytes # ( Auto) 0.2, Eosinophils # (Auto) 0.1, Basophils # (Auto) 0.0, Calcium Level 8.8 Microbiology Microbiology 10/24/16 Urine Culture - Final, Complete Escherichia Coli Discharge Medications Scheduled Aspirin (Aspir-Low) 81 Mg Tab, 81 MG PO DAILY, (Reported) Bupropion Hcl (Bupropion HCl Xl) 150 Mg Tab, 150 MG PO DAILY, (Reported) Ciprofloxacin HCl (Cipro) 500 Mg Tab, 500 MG PO BID Furosemide (Furosemide) 20 Mg Tab, 20 MG PO DAILY, (Reported) Metronidazole (Flagyl) 500 Mg Tab, 500 MG PO Q8H Multivitamins *[facility] STOCKED* (Thera M Plus *[facility] STOCK[facility]*) 1 Tab Tab, 1 TAB PO DAILY, (Reported) Omeprazole (Omeprazole) 20 Mg Cap, 20 MG PO DAILY, (Reported) Ropinirole Hydrochloride (Ropinirole HCl) 0.25 Mg Tab, 0.25 MG PO QHS, (Reported ) Sertraline HCl (Sertraline HCl) 100 Mg Tab, 100 MG PO BID, (Reported) Allergies Coded Allergies: Penicillins (Verified Allergy, Intermediate, HIVES, 06/30/12) Penicillins Cross Reactors (Verified Allergy, Intermediate, HIVES, 06/30/12) ZACK LOMAS Oct 27, 2016 10:02
== END 2016-10-27 11:10 | disposition home or self-care (01) | DRG 244 ==
LOC: M ED 15:52 → UNDOADMIN 19:39 → M ED INP 19:39 → M PED 21:02 → M ED INP 21:02 → M PED 21:06
PROVIDERS: ADMIT Hospitalist; ATTEND Hospitalist
DX: K57.32 Diverticulitis of large intestine without perforation or abscess without bleeding (principal); N39.0 Urinary tract infection, site not specified; E87.5 Hyperkalemia; K21.9 Gastro-esophageal reflux disease without esophagitis; F32.9 Major depressive disorder, single episode, unspecified; F41.9 Anxiety disorder, unspecified; G25.81 Restless legs syndrome; B96.20 Unspecified Escherichia coli [E. coli] as the cause of diseases classified elsewhere; Z98.84 Bariatric surgery status; Z88.0 Allergy status to penicillin; Z79.82 Long term (current) use of aspirin; Z79.899 Other long term (current) drug therapy

== ENCOUNTER → 2016-11-01 | Outpatient (REF) | payer BC ==
[~2016-11-01] MED LIST changes: +ASPI81TA21 PO; +ASPI81TAEC PO; +BUPR150T3 PO; +CIPR-249 PO; +FLAG500T PO; +FOLI1TAB4 PO; +IBUPOTC PO; +OMEP20CA3 PO; +OXAZ15CA4 PO; +ROPI0.25 PO; +SULF1TAB23 PO; +THIA100TA PO; +VITA100066 PO; +VITMTA PO
== END ==
LOC: M LAB REF 17:28
PROVIDERS: ATTEND Internal Medicine
DX: K57.92 Diverticulitis of intestine, part unspecified, without perforation or abscess without bleeding (principal); R19.7 Diarrhea, unspecified

== ENCOUNTER 2016-11-10 11:11 | Emergency (ER) | payer BC ==
[~2016-11-10] VITALS: Ht 170.2 cm; Wt 80.7 kg
[~2016-11-10 11:11] MED LIST changes: -ASPI81TAEC PO; -FOLI1TAB4 PO; -IBUPOTC PO; -OXAZ15CA4 PO; -SULF1TAB23 PO; -THIA100TA PO; -VITA100066 PO
[2016-11-10 12:42] LABS: BASO % 0.9 % (0.0-1.0); EOS % 1.3 % (0.0-3.0); LARGE UNSTAINED CELL # 0.1 K/mm3 (0.0-0.4); LARGE UNSTAINED CELL % 2.4 % (0.0-4.0); LYMPH # 1.4 K/mm3 (1.5-4.5); LYMPH % 30.1 % (24.0-44.0); MEAN CORPUSCULAR HEMOGLOBIN 33.2 pg (27.0-33.0); MEAN CORPUSCULAR HGB CONC 34.3 g/dl (32.0-36.5); MEAN CORPUSCULAR VOLUME 96.7 fl (80.0-96.0); MONO # 0.3 K/mm3 (0.0-0.8); MONO % 6.6 % (0.0-5.0); NEUTROPHILS # 2.4 K/mm3 (1.8-7.7); NEUTROPHILS % 58.7 % (36.0-66.0); PLATELET COUNT, AUTOMATED 301 k/mm3 (150-450); RED CELL DISTRIBUTION WIDTH 12.7 % (11.5-14.5); WHITE BLOOD COUNT 4.2 K/mm3 (4.0-10.0)
[2016-11-10 12:49] LABS: YEAST LIKE CELL URINE AUTO SMALL
[2016-11-10 13:02] LABS: ANION GAP 7 MEQ/L (8-16); BLOOD UREA NITROGEN 14 MG/DL (7-18); CALCIUM LEVEL 9.1 MG/DL (8.5-10.1); CARBON DIOXIDE LEVEL 28 MEQ/L (21-32); CHLORIDE LEVEL 105 MEQ/L (98-107); CREATININE FOR GFR 0.67 MG/DL (0.55-1.02); GLOMERULAR FILTRATION RATE > 60.0 (>58); GLUCOSE, FASTING 94 MG/DL (70-105); POTASSIUM SERUM 4.4 MEQ/L (3.5-5.1); SODIUM LEVEL 140 MEQ/L (136-145)
--- NOTE | 2016-11-10 13:47 | REP ---
ABDOMEN SERIES: Three views. HISTORY: Abdomen pain. Comparison chest x-ray September 07, 2016. FINDINGS: The lungs are well inflated and free of infiltrate. There is a mild linear fibrotic band at the left base. Heart is not enlarged. Pulmonary vasculature is not increased. There is no evidence of free subdiaphragmatic air. Supine and erect views of the abdomen shows surgical sutures in the left upper quadrant and left mid abdomen. There is a dextroconvex curvature in the lumbar spine. Bowel gas pattern is normal. Psoas margins are symmetric. No mass organomegaly is seen. IMPRESSION: Surgical sutures in the left upper and left mid abdomen suggesting previous gastric bypass surgery. Dextroconvex curvature in the lumbar spine. No acute abnormality. Signed by Juanjose Nelson MD 11/10/2016 03:57 P
[2016-11-10 15:22] VITALS: BP 124/71
== END 2016-11-10 15:27 | disposition home or self-care (01) ==
LOC: M ED 12:15
DX: K59.00 Constipation, unspecified (principal); B96.89 Other specified bacterial agents as the cause of diseases classified elsewhere; I69.398 Other sequelae of cerebral infarction; G43.909 Migraine, unspecified, not intractable, without status migrainosus; I10 Essential (primary) hypertension; E78.00 Pure hypercholesterolemia, unspecified; Z90.79 Acquired absence of other genital organ(s); F41.9 Anxiety disorder, unspecified; F32.9 Major depressive disorder, single episode, unspecified; Z87.442 Personal history of urinary calculi; Z98.84 Bariatric surgery status; Z91.011 Allergy to milk products; Z79.82 Long term (current) use of aspirin; Z79.899 Other long term (current) drug therapy; Z88.0 Allergy status to penicillin

== ENCOUNTER 2016-11-10 16:45 | Outpatient (RCR) | payer BC | END 2016-11-25 | disposition home or self-care (01) | LOC: M PT 16:45 | PROVIDERS: ATTEND Nurse Practitioner Family | DX: Z51.89 Encounter for other specified aftercare (principal); M25.552 Pain in left hip ==

== ENCOUNTER 2016-12-13 15:55 | Inpatient (IN) | payer BC ==
[~2016-12-13] VITALS: Ht 170.2 cm; Wt 84.5 kg
[2016-12-13] MEDS ORDERED: ONDANSETRON 4MG/2ML VIAL (J2405) IV ONE (16:15)
--- NOTE | 2016-12-13 17:25 | REP ---
Abdomen series: Four views. History: Abdominal pain. Findings: Upright view of the chest shows clear well inflated lungs and sharp pleural angles. There is heart size is normal. There is no evidence of infiltrate or free subdiaphragmatic air. Supine and erect views of the abdomen show a dextroconvex curvature in the lumbar spine. There are suture lines visible in the left mid abdomen suggesting previous gastric bypass surgery. The bowel gas pattern is unremarkable. Psoas margins and flank stripes are intact. No mass, organomegaly, or pathologic calcification is seen. Impression: Surgical sutures in the left mid abdomen. A dextroconvex curvature in the thoracolumbar spine. Otherwise negative. Signed by Juanjose Nelson MD 12/13/2016 06:54 P
[2016-12-13] MEDS: HYDROmorphone HCL 1 MG/ML SYRINGE (J1170) IV PRN ×3 (17:46→20:54)
[2016-12-13 18:11] LABS: ADD MANUAL DIFFER YES; DIFF SLIDE NUMBER 302; MEAN CORPUSCULAR HGB CONC 33.6 g/dl (32.0-36.5); MEAN CORPUSCULAR VOLUME 98.2 fl (80.0-96.0); PLATELET COUNT, AUTOMATED 125 k/mm3 (150-450); RED CELL DISTRIBUTION WIDTH 13.2 % (11.5-14.5); WHITE BLOOD COUNT 0.9 K/mm3 (4.0-10.0)
[2016-12-13 18:27] LABS: ALBUMIN 3.6 GM/DL (3.2-5.2); ALBUMIN/GLOBULIN RATIO 1.13 (1.00-1.93); ALKALINE PHOSPHATASE 124 U/L (45-117); ALT/SGPT 92 U/L (12-78); AMYLASE 97 U/L (25-115); ANION GAP 9 MEQ/L (8-16); AST/SGOT 236 U/L (15-37); BILIRUBIN,DIRECT 0.1 MG/DL (0.0-0.2); BILIRUBIN,TOTAL 0.4 MG/DL (0.2-1.0); BLOOD UREA NITROGEN 27 MG/DL (7-18); CALCIUM LEVEL 8.7 MG/DL (8.5-10.1); CARBON DIOXIDE LEVEL 24 MEQ/L (21-32); CHLORIDE LEVEL 108 MEQ/L (98-107); CREATININE FOR GFR 0.83 MG/DL (0.55-1.02); GLOMERULAR FILTRATION RATE > 60.0 (>58); GLUCOSE, FASTING 126 MG/DL (70-105); POTASSIUM SERUM 3.8 MEQ/L (3.5-5.1); SODIUM LEVEL 141 MEQ/L (136-145); TOTAL PROTEIN 6.8 GM/DL (6.4-8.2)
[2016-12-13 18:30] LABS: BANDS 10 % (< 11); BASOPHILS 1 % (0-4); EOSINOPHILS 1 % (0-5)
[2016-12-13] MEDS ORDERED: metroNIDAZOLE 500 MG in APPROPRIATE DILUENT 1 EA IV ONE (19:00)
[2016-12-13] MEDS ORDERED: CIPROFLOXACIN 400 MG in APPROPRIATE DILUENT 1 EA IV ONE (19:00)
[2016-12-13] MEDS ORDERED: ISOVUE-370 76% 100ML VIAL (Q9967) As Ordered ONE (19:09)
[2016-12-13] MEDS ORDERED: METOCLOPRAMIDE INJ 10MG/2ML VIAL (J2765) IV ONE (19:15)
[2016-12-13] MEDS ORDERED: METOCLOPRAMIDE INJ 10MG/2ML VIAL (J2765) As Ordered ONE (19:15)
[2016-12-13] MEDS ORDERED: VITA100066 PO (19:48)
[2016-12-13] MEDS ORDERED: ASPI81TAEC PO (19:48)
[2016-12-13] MEDS ORDERED: IBUPOTC PO (19:48)
--- NOTE | 2016-12-13 20:20 | REPUSA ---
CT of the abdomen and pelvis with contrast Clinical statement: Pain. Technique: Multiple axial CT images were obtained from the base of the lungs through the floor of the pelvis utilizing 5 mm axial slices after administration of nonionic intravenous contrast. Coronal an d sagittal reconstructions were also obtained. Comparison: 10/24/2016 sigmoid diverticulitis seen on the prior study has resolved.. Findings: Chest: The visualized lung bases are clear. Abdomen: The liver, spleen, pancreas, kidneys, gallbladder, and adrenal glands are unremarkable. The aorta is within normal limits. There is no evidence of abdominal lymphadenopathy or ascites. Pelvis: The bowel is unremarkable, with no obstructive or inflammatory changes. The urinary bladder i s within normal limits. The other pelvic structures appear grossly intact. There is no evidence of pe lvic lymphadenopathy or ascites. Bones: There are no suspicious osseous abnormalities seen. Impression: No acute findings. The sigmoid diverticulitis in the prior study has resolved.
[2016-12-13] MEDS ORDERED: NS 1,000 ML IV SCH (22:06)
[2016-12-13] MEDS ORDERED: ACETAMINOPHEN TAB 650MG DOSE (2X325MG) PO PRN (22:15)
[2016-12-13] MEDS ORDERED: PERCOCET 5MG/325MG TAB PO PRN ×2 (22:15)
[2016-12-13 22:20] LABS: ERYTHROCYTE SEDIMENTATION RATE 7 mm/hr (0-20)
[2016-12-13] MEDS ORDERED: IBUPROFEN 400 MG TAB PO PRN (22:30)
--- NOTE | 2016-12-13 22:58 | PHACANCOPD ---
PHARMACY VANCOMYCIN DOSING Pt Demographics Demographics Patient Age:46 , Weight:77.000 , Gender: female Adjusted Body Weight Date: 12/13/16, Adjusted Body Weight: [77] Kg Events Past 24 Hours Events Past 24 Hours: NO: Dialysis, Diuretic Therapy, Change in CrCl, Fever, Elevation in WBC, Pending Diagnostics, Pending Procedures, Other Vancomycin Vancomycin indication: NEUTROPENIC FEVER Vancomycin Target Ranges: 15-20 mcg/ml Vancomycin Load Y/N: Yes Load Dose Date Time Vancomycin Load Dose: 1.5G IV Date: 12/14 Time: 03:00 Vancomycin Dose Date: 12/13/16. Current Vancomycin Dose: [1G IV Q12H] Intermittent Dosing?: No Labs Labs Vital Signs Label Value Date Time Patient Temperature 100.3 degrees F 12/13/16 1800 Patient Temperature 100.3 degrees F 12/13/16 1845 Temperature Source Oral 12/13/16 1845 Patient Temperature 99.5 degrees F 12/13/16 2103 Temperature Source Oral 12/13/16 2103 Patient Temperature 99.2 degrees F 12/13/16 2112 Temperature Source Oral 12/13/16 2112 Item Value Date Time White Blood Count 0.9 K/mm3 *L 12/13/16 1721 Creatinine 0.83 MG/DL 12/13/16 1721 Micro Microbiology 12/13/16 Blood Culture, Received Pending 12/13/16 Blood Culture, Received Pending 12/13/16 Urine Culture, Received Pending Creatinine Clearance Date:12/13/16. Creatinine Clearance: [86.8ML/MIN.]. Pending Labs BLOOD AND URINE CULTURES Assessment and Plan Maintaining Current Dose?: Yes Reason for dose change: No Dose Change Pharmacist Note Pharmacist Note Date: 12/13/16. Pharmacist note:Pt is a 46 year old female being treated for Neutropenic fever goal trough 15-20mcg/ml. She has not been treated with vancomycin here at [facility] in the past. To achieve goal the pt will receive a 1.5g iv loading dose starting 12/14/16 @03:00. Maintenance therapy will consist of 1g iv q12h starting 12/14/16 @15. We will continue to monitor and adjust dose as needed. [facility] Dec 13, 2016 22:57
[2016-12-13 23:08] LABS: REASON FOR REVIEW COMPREHENSIVE REVIEW
--- NOTE | 2016-12-13 23:28 | HPE ---
DATE OF ADMISSION: 12/13/2016 PRIMARY CARE PROVIDER: Dr. Mary Ivey HISTORY OF PRESENT ILLNESS: This patient is a 46-year-old female with a past medical history significant for anxiety/depression, gastroesophageal reflux disease, stroke, history of gastric bypass presented to [facility] on December 13, 2016 for acute worsening abdominal pain. The patient stated she has been having diarrhea for the past two weeks, loose stool 5 to 6 bowel movements on a daily basis. Started this morning after breakfast, the patient started having uncontrolled vomiting with worsening diarrhea. No blood in the vomit or stool. The patient also noted to have a fever and shiver and chills. The patient complains of sharp abdominal pain at the left lower quadrant. The patient is started experiencing sharp pained headache in the frontal lobe without auras. The patient had similar symptoms in the past. The patient was admitted in October 24, 2016 for diverticulitis. The patient finished a course of Cipro-Flagyl. In the emergency room the patient received one dose of Cipro-Flagyl and Dilaudid for pain control with hospitalist team called for admission. ALLERGIES: PENICILLIN (hives). PAST MEDICAL HISTORY: Stroke in 2007, resulted in right upper and lower extremity weakness. Gastroesophageal reflux disease. Anxiety/depression. Morbid obesity, status post gastric bypass surgery in 2013. PAST SURGICAL HISTORY: Gastric bypass surgery in 2013. Cholecystectomy in 2013. Hysterectomy in 2014. Tonsillectomy. SOCIAL HISTORY: Denies tobacco use. The patient started to drink 4 to 5 times on a daily basis since four years ago. Denies any recreational drug use. HOME MEDICATIONS: - aspirin 81 mg by mouth every day - bupropion 150 mg by mouth every day - vitamin D 1000 units by mouth every day - Lasix 20 mg by mouth every day - ibuprofen 400 mg by mouth 6 hours as needed - multivitamin one tablet by mouth every day - omeprazole 20 mg every day - Requip 0.25 mg by mouth at bedtime - sertraline 100 mg by mouth twice a day REVIEW OF SYSTEMS: GENERAL: Persistent fever and shivering chills since this morning. HEENT: Complains of a persistent throbbing frontal headache since this morning without any auras. CARDIOVASCULAR: No chest pain, no palpitations. RESPIRATORY: No shortness of breath. No cough. GI: Complains about persistent diarrhea for the past two weeks. Noted to have vomiting with worsening diarrhea since this morning. Still has persistent nausea and vomiting since this morning. History of diverticulitis. Recently admitted to the hospital and finished a course of Cipro/Flagyl. MUSCULOSKELETAL: No joint pain or muscle pain. NEUROLOGICAL: History of stroke in 2007, resulting in persistent right lower and upper extremity weakness. Denies any right sided toe drop. Denies any new numbness or tingling. OBJECTIVE: VITAL SIGNS: Temperature 99.2, pulse is 92, respirations 16, blood pressure is 120/73, pulse oximetry 97% on room air (shortly after patient arrived to the emergency room, the patient had a temperature of 100.3.). GENERAL: Moderate to severe distress due to persistent abdominal pain. Alert and oriented times three. HEENT: Normocephalic, atraumatic. Extraocular movements grossly intact. CARDIOVASCULAR: Positive S1, S2, regular rate. LUNGS: Clear to auscultation bilaterally. ABDOMEN: Very tender to palpation at the left lower quadrant, just above the pubic symphysis. Positive rebound around the area. Bowel sounds present. EXTREMITIES: Mild trace edema, nonpitting. No sign of cyanosis. NEUROLOGICAL: Sensation to fine touch grossly intact. Muscle strength 4 out of 5 at the right upper and lower extremity. The rest of the left upper and lower extremity muscle strength is 5 out of 5. LABORATORY DATA: WBC is 0.9, hemoglobin 13.2, hematocrit is 39.4, platelet count is 125. Sodium is 141, potassium is 3.8, chloride is 108, carbon dioxide 24, BUN 27, creatinine 0.83, GFR is greater than 60, fasting glucose 126, lactic acid is 0.9, calcium 8.4, total bilirubin is 0.4, direct bilirubin is 0.1, AST is 236, ALT is 92. Alkaline phosphatase 124. C-reactive protein less than 0.3. Total protein is 6.8. Albumin 3.6. Amylase is 97, lipase is 185. Blood culture is pending times two. Urine culture is pending. Urinalysis: Showed no white, no leukocyte esterase. Negative nitrite. 1 positive bacteria. IMAGING: Abdominal x-ray shows surgical suture at the left mid abdomen. CT of the abdomen and pelvis with IV contrast showed no acute findings. The sigmoid diverticulitis in the previous study has resolved. ASSESSMENT AND PLAN: 1. Neutropenic fever. The patient was admitted to the PCU on inpatient status. The patient does present with a temperature of 100.3 with WBC of 0.9. UA is negative. Blood cultures obtained. Urine culture is pending. At the time of encounter the patient is not able to provide any stool sample for study. Empirically the patient was treated with broad spectrum antibiotics, vancomycin and meropenem. The patient does have PENICILLIN adverse reaction, (hives). Currently, the patient is hemodynamically stable. The patient did have a history of diverticulitis, status post one course of Cipro-Flagyl. Follow with GI panel. 2. Hepatitis. The patient does have elevated AST and ALT. The patient admitted for chronic alcohol usage 4 to 5 beers on a daily basis for the past four years. Will followup with a hepatitis panel. 3. History of stroke. The patient still has the right upper and lower extremity residuals, aspirin. 4. Anxiety/depression. Continue home medications. The patient is on bupropion and sertraline. 5. Chronic upper and lower extremity swelling. At the baseline patient is taking Lasix to control the symptoms. The patient denies any history of congestive heart failure. Currently due to persistent nausea, vomiting and diarhea, the patient is fluid supportively. 6. Gastroesophageal reflux disease. On Protonix. 7. History of morbid obesity. Status post gastric bypass. 8. History of tobacco abuse. Will be on vitamin supplements. Monitor for any possible withdrawal symptoms. 9. Deep venous thrombosis (DVT) prophylaxis. The patient will be on heparin.
[2016-12-13 23:37] LABS: CONTROL LINE INT CTR LINE PRESENT; HIV SCRN NEGATIVE (NEGATIVE); HIV SCRN1 NEGATIVE (NEGATIVE)
[2016-12-14] VITALS (7 sets, daily range): BP systolic 97–139; BP diastolic 54–84
[2016-12-14] MEDS: MEROPENEM INJ 1 GM in D5W MINI-BAG PLUS 100 ML IV SCH ×3 (01:57→17:45)
[2016-12-14] MEDS: VANCOMYCIN HCL 1,000 MG, VIAL MATE ADAPTER 1 EACH in D5W 250 ML IV SCH ×2 (02:30→14:43)
[2016-12-14] MEDS: MORPHINE 4 MG/ML 1ML SYRINGE IV PRN ×3 (02:30→20:07)
[2016-12-14] MEDS: ONDANSETRON 4MG/2ML VIAL (J2405) IV PRN (03:43)
[2016-12-14] MEDS ORDERED: VANCOMYCIN HCL 500 MG in D5W MINI-BAG PLUS 100 ML IV ONE (04:00)
[2016-12-14] MEDS: THIAMINE INJection 100 MG, FOLIC ACID 1 MG, MULTIVITAMIN -ADULT INJECTION 10 ML in NS 1... IV SCH (04:44)
[2016-12-14] MEDS: HEPARIN SOD (PORCINE) 5000 UNITS/ML VIAL SC SCH ×3 (05:42→21:55)
[2016-12-14 05:48] LABS: BASO % 0.4 % (0.0-1.0); EOS % 2.3 % (0.0-3.0); LARGE UNSTAINED CELL # 0.1 K/mm3 (0.0-0.4); LARGE UNSTAINED CELL % 2.2 % (0.0-4.0); LYMPH # 0.6 K/mm3 (1.5-4.5); LYMPH % 25.9 % (24.0-44.0); MEAN CORPUSCULAR HEMOGLOBIN 33.2 pg (27.0-33.0); MEAN CORPUSCULAR HGB CONC 33.3 g/dl (32.0-36.5); MEAN CORPUSCULAR VOLUME 99.6 fl (80.0-96.0); MONO # 0.1 K/mm3 (0.0-0.8); MONO % 6.1 % (0.0-5.0); NEUTROPHILS # 1.3 K/mm3 (1.8-7.7); PLATELET COUNT, AUTOMATED 119 k/mm3 (150-450); RED CELL DISTRIBUTION WIDTH 13.6 % (11.5-14.5)
[2016-12-14 06:03] LABS: ALBUMIN 3.1 GM/DL (3.2-5.2); ALBUMIN/GLOBULIN RATIO 0.89 (1.00-1.93); ALKALINE PHOSPHATASE 155 U/L (45-117); ALT/SGPT 644 U/L (12-78); ANION GAP 8 MEQ/L (8-16); AST/SGOT 1417 U/L (15-37); BILIRUBIN,TOTAL 0.6 MG/DL (0.2-1.0); BLOOD UREA NITROGEN 13 MG/DL (7-18); CALCIUM LEVEL 8.6 MG/DL (8.5-10.1); CARBON DIOXIDE LEVEL 27 MEQ/L (21-32); CHLORIDE LEVEL 111 MEQ/L (98-107); CHOLESTEROL LEVEL 162 MG/DL (<200); CREATININE FOR GFR 0.75 MG/DL (0.55-1.02); GLOMERULAR FILTRATION RATE > 60.0 (>58); GLUCOSE, FASTING 120 MG/DL (70-105); MAGNESIUM LEVEL 2.1 MG/DL (1.8-2.4); POTASSIUM SERUM 3.8 MEQ/L (3.5-5.1); SODIUM LEVEL 146 MEQ/L (136-145); TOTAL PROTEIN 6.6 GM/DL (6.4-8.2); TRIGLYCERIDES LEVEL 130 MG/DL (<150)
[2016-12-14] MEDS ORDERED: oxyCODONE 5MG TAB PO PRN (07:00)
[2016-12-14] MEDS ORDERED: LORazepam 2 MG/ML VIAL (J2060) IV PRN (08:30)
[2016-12-14] MEDS ORDERED: PANTOPRAZOLE 40MG INJ (PROTONIX) (C9113) IV SCH (09:00)
[2016-12-14] MEDS ORDERED: FUROSEMIDE 20 MG TAB PO SCH (09:00)
[2016-12-14] MEDS: SERTRALINE 100 MG TAB PO SCH ×2 (09:57→20:06)
[2016-12-14] MEDS: VITAMIN D 1,000 INTERNATIONAL UNITS TABLET PO SCH (09:57)
[2016-12-14] MEDS: ASPIRIN 81 MG ENTERIC TAB PO SCH (09:57)
[2016-12-14] MEDS: OMEPRAZOLE 20 MG CAP PO SCH (09:57)
[2016-12-14] MEDS: buPROPion **XL** TABLET 150MG (WELLBUTRIN XL) PO SCH (09:58)
[2016-12-14] MEDS: oxyCODONE 5MG TAB PO PRN ×2 (09:58→14:46)
[2016-12-14] MEDS: MULTIVITAMINS/MINERALS THERAP 1 TAB PO SCH (09:58)
[2016-12-14] MEDS: OXAZEPAM 15 MG CAP PO SCH ×3 (10:01→21:55)
--- NOTE | 2016-12-14 12:58 | IPNPDOC ---
Date Seen The patient was seen on 12/14/16. Progress Note SUBJECTIVE: Patient complains of left inguinal pain, as well as fevers and chills she also complains of diarrhea for the last several days associated with nausea and vomiting at the present time she denies any active nausea vomiting or diarrhea but happens after eating she feels no different from when she presented to the emergency room yesterday OBJECTIVE PHYSICAL EXAMINATION: VITAL SIGNS: Please see below. GENERAL: Obese middle-aged female sleeping peacefully is entered the room but easily arousable to verbal stimuli she begins exhibiting tremors but not in any acute distress HEENT: Dry mucous membranes elevation and CVP cranial nerves II through XII are grossly intact CARDIOVASCULAR: S1-S2 regular no additional heart sounds appreciated. RESPIRATORY: Clear to auscultation bilaterally. ABDOMINAL: Bowel sounds are diminished abdomen is soft is nontender other than the left inguinal/groin area, there is no tenderness in the right upper quadrant to deep palpation EXTREMITIES: Clubbing cyanosis or edema NEUROLOGICAL: Alert oriented 3 she is tremulous but otherwise her exam is nonfocal LABORATORY DATA: Please see below. MICROBIOLOGY: Please see below. IMAGING: CT scan of the abdomen and pelvis 918:No acute findings. The sigmoid diverticulitis in the prior study has resolved. DVT prophylaxis ordered?: Heparin every 8 ASSESSMENT AND PLAN: This is a 46-year-old female with acute hepatitis and left lower quadrant pain. PROBLEMS: 1. Acute Hepatitis: The patient did admit to me that she's been drinking excessively and heavily lately. Hepatitis panel is been ordered all check an IFEOMA as well as liver ultrasound and Doppler to assess for any clot. However at this time I suspicion is for toxic acute alcoholic hepatitis. We'll continue to monitor her liver function tests closely I will check an INR. We'll discontinue Tylenol and hepatotoxic medications. 2. Neutropenic fever: The patient's fever was subtle at 100.3 but was sustained for 45 minutes, the neutropenia was also quite subtle and on rechecking her labs she is no longer neutropenic. The suspicion based on her peripheral smears that it is related to antibiotic use however also suspicious for bone marrow suppression secondary to alcohol intake she does have macrocytosis as well. She is currently on broad-spectrum antibiotics we'll simply continue to monitor follow-up her cultures. 3. Left lower quadrant pain: Of unclear etiology CT scan of her abdomen is rather benign however she does have a hepatitis the patient appears to be much lower in the inguinal area there is no obvious hernias no obvious [employer] pathology on CT scan she has had nausea vomiting diarrhea which had PCR panel has been ordered irritable bowel syndrome is also another possibility her inflammatory markers a relatively flat continue to monitor provide pain control. The patient has a history of gastric bypass surgery does have sutures in the left side of the abdomen pain could be related to this, we'll continue to follow no gross abdomen is a CT scan without evidence of obstruction perforation or any pathology or doing urgent surgical intervention. 4. Alcohol abuse: The patient is on thiamine and folic acid and multivitamin I' ll also start her on Cerebyx if she does appear to be tremulous 5. Gastroesophageal reflux disease: Continue with omeprazole 6. Mood disorder: Continue with Zoloft, Wellbutrin 7. Restless leg syndrome: Continue with Requip DISPOSITION: Continued monitor closely. VS, I&O, 24H, Fishbone Vital Signs/I&O Vital Signs Date Time Temp Pulse Resp B/P (MAP) Pulse Ox O2 Delivery O2 Flow Rate FiO2 12/14/16 10:28 18 12/14/16 07:05 97.0 72 120/69 (86) 94 Room Air I&O- Last 24 Hours up to 6 AM 12/14/16 05:59 Intake Total 750 ml Balance 750 ml Laboratory Data 24H LABS Laboratory Tests 2 12/13/16 17:21: Neutrophils 69, Band Neutrophils 10, Lymphocytes (Manual) 16, Monocytes (Manual ) 3, Eosinophils (Manual) 1, Basophils (Manual) 1, Differential Slide Review Report, Differential Pathologist's Review COMPREHENSIVE REVIEW, Platelet Estimate DECREASED, Red Blood Cell Morphology NORMAL, Peripheral Blood Smear Path Consult PERIPHERAL SMEAR, Erythrocyte Sedimentation Rate 7, Urine Appearance CLEAR, Urine Color STRAW, Urine pH 5.0, Urine Specific [place] 1.009 , Urine Protein NEGATIVE, Urine Glucose (UA) NEGATIVE, Urine Ketones TRACEH, Urine Urobilinogen 0.2, Urine Bilirubin NEGATIVE, Urine Leukocyte Esterase NEGATIVE, Urine Blood NEGATIVE, Urine Nitrite NEGATIVE, Urine WBC (Auto) 0, Urine RBC (Auto) 4H, Urine Hyaline Casts (Auto) 0, Urine Bacteria (Auto) 1+H, Urine Squamous Epithelial Cells 0, Urine Mucus (Auto) SMALL, Urine Sperm (Auto) , Anion Gap 9, Glomerular Filtration Rate > 60.0, Calcium Level 8.7, Aspartate Amino Transf (AST/SGOT) 236H, Alanine Aminotransferase (ALT/SGPT) 92H, Alkaline Phosphatase 124H, Total Bilirubin 0.4, Direct Bilirubin 0.1, C-Reactive Protein , Quantitative < 0.30, Total Protein 6.8, Albumin 3.6, Albumin/Globulin Ratio 1.13, Amylase Level 97, Lipase 185, HIV (1&2) Antibody NEGATIVE, HIV P24 Antigen NEGATIVE 12/13/16 19:02: Lactic Acid Level 0.9 12/14/16 04:54: Ethyl Alcohol Level < 0.003 12/14/16 04:55: Anion Gap 8, Glomerular Filtration Rate > 60.0, Calcium Level 8.6, Aspartate Amino Transf (AST/SGOT) 1417H, Alanine Aminotransferase (ALT/SGPT) 644H, Alkaline Phosphatase 155H, Total Bilirubin 0.6, Total Protein 6.6, Albumin 3.1L , Albumin/Globulin Ratio 0.89L, Lipase 100, White Blood Count 2.0L, Red Blood Count 3.72L, Hemoglobin 12.3, Hematocrit 37.0, Mean Corpuscular Volume 99.6H, Mean Corpuscular Hemoglobin 33.2H, Mean Corpuscular Hemoglobin Concent 33.3, Red Cell Distribution Width 13.6, Platelet Count 119L, Neutrophils (%) (Auto) 63.0, Lymphocytes (%) (Auto) 25.9, Monocytes (%) (Auto) 6.1H, Eosinophils (%) ( Auto) 2.3, Basophils (%) (Auto) 0.4, Neutrophils # (Auto) 1.3L, Lymphocytes # ( Auto) 0.6L, Monocytes # (Auto) 0.1, Eosinophils # (Auto) 0.0, Basophils # (Auto ) 0.0, Large Unclassified Cells % 2.2, Large Unclassified Cells # 0.1, Blood Urea Nitrogen 13#, Creatinine 0.75, Sodium Level 146H, Potassium Level 3.8, Chloride Level 111H, Carbon Dioxide Level 27, Triglycerides Level 130, LDL Cholesterol 33.0, Magnesium Level 2.1, Total Cholesterol 162, Non-HDL Cholesterol (LDL + VLDL) 59, Total HDL Cholesterol 103, Cholesterol/HDL Ratio 1.572, Thyroid Stimulating Hormone (TSH) 1.350 CBC/BMP Laboratory Tests 12/13/16 17:21 Red Blood Count 4.01, Mean Corpuscular Volume 98.2 H, Mean Corpuscular Hemoglobin 33.0, Mean Corpuscular Hemoglobin Concent 33.6, Red Cell Distribution Width 13.2 12/14/16 04:55 Red Blood Count 3.72 L, Mean Corpuscular Volume 99.6 H, Mean Corpuscular Hemoglobin 33.2 H, Mean Corpuscular Hemoglobin Concent 33.3, Red Cell Distribution Width 13.6, Neutrophils (%) (Auto) 63.0, Lymphocytes (%) (Auto) 25.9, Monocytes (%) (Auto) 6.1 H, Eosinophils (%) (Auto) 2.3, Basophils (%) ( Auto) 0.4, Neutrophils # (Auto) 1.3 L, Lymphocytes # (Auto) 0.6 L, Monocytes # ( Auto) 0.1, Eosinophils # (Auto) 0.0, Basophils # (Auto) 0.0, Calcium Level 8.6, Aspartate Amino Transf (AST/SGOT) 1417 H, Alanine Aminotransferase (ALT/SGPT) 644 H, Alkaline Phosphatase 155 H, Total Bilirubin 0.6, Triglycerides Level 130 , LDL Cholesterol 33.0, Total Protein 6.6, Albumin 3.1 L Microbiology Microbiology 12/13/16 Blood Culture, Received Pending 12/13/16 Blood Culture, Received Pending 12/13/16 Urine Culture, Received Pending MIMA JACOME MD Dec 14, 2016 12:58
[2016-12-14 13:32] LABS: HCG, SERUM QUANTITATIVE < 1.0 MIU/ML
[2016-12-14 13:48] LABS: INR 1.26
--- NOTE | 2016-12-14 15:24 | REP ---
Complete abdominal ultrasound and Doppler assessment of the vascular structures: Complete abdomen ultrasound: The patient has a cholecystectomy. The hepatic parenchyma demonstrates slightly increased echogenicity compatible with hepato steatosis but is otherwise unremarkable. There is mild intrahepatic biliary duct dilatation. This is not unusual in a cholecystectomy patient. The common biliary duct measures 10.6 mm in diameter which is upper normal for a post cholecystectomy patient. The visualized portion of the pancreatic head is unremarkable. The body and tail are obscured by bowel gas. The spleen is normal size measuring 11.3 cm craniocaudad length and otherwise unremarkable. The kidneys are normal size. Right kidney measures 11.4 cm length and left kidney 11.8 cm length. There are no renal calculi, masses or cyst. There is no hydronephrosis. There is no abdominal aortic aneurysm. There is a trace of ascites. Impression: Trace of ascites. Pancreas is obscured by bowel. Cholecystectomy. Otherwise, negative abdominal ultrasound. The abdominal Doppler vascular ultrasound: The hepatic vein demonstrates normal triphasic wave forms. There is antegrade flow in the portal vein. There is no evidence of hepatic vein or portal vein thrombus. Signed by Rodney Carver MD 12/14/2016 03:15 P
[2016-12-14] MEDS: rOPINIRole 0.25 MG TAB(REQUIP) PO SCH (21:55)
[2016-12-15] MEDS: THIAMINE INJection 100 MG, FOLIC ACID 1 MG, MULTIVITAMIN -ADULT INJECTION 10 ML in NS 1... IV SCH (01:46)
[2016-12-15] MEDS: MEROPENEM INJ 1 GM in D5W MINI-BAG PLUS 100 ML IV SCH ×2 (01:46→09:19)
[2016-12-15] MEDS: VANCOMYCIN HCL 1,000 MG, VIAL MATE ADAPTER 1 EACH in D5W 250 ML IV SCH (03:11)
[2016-12-15 04:00] VITALS: BP 161/90
[2016-12-15] MEDS: HEPARIN SOD (PORCINE) 5000 UNITS/ML VIAL SC SCH ×3 (05:24→21:13)
[2016-12-15] MEDS: OXAZEPAM 15 MG CAP PO SCH ×3 (05:25→21:13)
[2016-12-15] MEDS: MORPHINE 4 MG/ML 1ML SYRINGE IV PRN ×4 (05:47→18:16)
[2016-12-15 05:55] LABS: BASO % 0.5 % (0.0-1.0); EOS # 0.1 K/mm3 (0.0-0.50); LARGE UNSTAINED CELL # 0.1 K/mm3 (0.0-0.4); LYMPH # 1.3 K/mm3 (1.5-4.5); LYMPH % 54.6 % (24.0-44.0); MEAN CORPUSCULAR HEMOGLOBIN 33.8 pg (27.0-33.0); MEAN CORPUSCULAR HGB CONC 34.8 g/dl (32.0-36.5); MEAN CORPUSCULAR VOLUME 97.3 fl (80.0-96.0); MONO # 0.2 K/mm3 (0.0-0.8); MONO % 6.6 % (0.0-5.0); NEUTROPHILS # 0.7 K/mm3 (1.8-7.7); NEUTROPHILS % 29.2 % (36.0-66.0); RED CELL DISTRIBUTION WIDTH 13.1 % (11.5-14.5); WHITE BLOOD COUNT 2.5 K/mm3 (4.0-10.0)
[2016-12-15 06:08] LABS: ALBUMIN 2.8 GM/DL (3.2-5.2); ALKALINE PHOSPHATASE 123 U/L (45-117); ALT/SGPT 354 U/L (12-78); ANION GAP 6 MEQ/L (8-16); AST/SGOT 292 U/L (15-37); BILIRUBIN,TOTAL 0.4 MG/DL (0.2-1.0); BLOOD UREA NITROGEN 7 MG/DL (7-18); CALCIUM LEVEL 8.7 MG/DL (8.5-10.1); CARBON DIOXIDE LEVEL 27 MEQ/L (21-32); CHLORIDE LEVEL 110 MEQ/L (98-107); CREATININE FOR GFR 0.57 MG/DL (0.55-1.02); GLOMERULAR FILTRATION RATE > 60.0 (>58); GLUCOSE, FASTING 89 MG/DL (70-105); MAGNESIUM LEVEL 1.7 MG/DL (1.8-2.4); POTASSIUM SERUM 3.6 MEQ/L (3.5-5.1); SODIUM LEVEL 143 MEQ/L (136-145); TOTAL PROTEIN 5.9 GM/DL (6.4-8.2)
[2016-12-15 06:54] LABS: PLATELET COUNT, AUTOMATED 86 k/mm3 (150-450)
[2016-12-15 07:30] VITALS: BP 120/72
[2016-12-15] MEDS: BACTRIM 160MG/800MG DS TAB PO SCH ×2 (09:00→21:13)
[2016-12-15] MEDS: SERTRALINE 100 MG TAB PO SCH ×2 (09:19→21:13)
[2016-12-15] MEDS: MULTIVITAMINS/MINERALS THERAP 1 TAB PO SCH (09:19)
[2016-12-15] MEDS: ASPIRIN 81 MG ENTERIC TAB PO SCH (09:19)
[2016-12-15] MEDS: VITAMIN D 1,000 INTERNATIONAL UNITS TABLET PO SCH (09:19)
[2016-12-15] MEDS: OMEPRAZOLE 20 MG CAP PO SCH (09:19)
[2016-12-15] MEDS: buPROPion **XL** TABLET 150MG (WELLBUTRIN XL) PO SCH (09:19)
[2016-12-15 12:00] VITALS: BP 115/72
--- NOTE | 2016-12-15 13:19 | IPNPDOC ---
Date Seen The patient was seen on 12/15/16. Progress Note SUBJECTIVE: Patient reports improvement in Lt groin pain, no episodes of diarrhea or vomitting. She denies chills/rigors/tremors. She does not feel back to normal as of yet, but says she is almost there. OBJECTIVE PHYSICAL EXAMINATION: VITAL SIGNS: Please see below. GENERAL: Obese middle-aged female sleeping peacefully is entered the room but easily arousable to verbal stimuli she is not at all tremulous she is in no acute distress HEENT: Moist mucous membranes elevation and CVP cranial nerves II through XII are grossly intact CARDIOVASCULAR: S1-S2 regular no additional heart sounds appreciated. RESPIRATORY: Clear to auscultation bilaterally. ABDOMINAL: Bowel sounds are present abdomen is soft is nontender EXTREMITIES: No Clubbing cyanosis or edema LABORATORY DATA: Please see below. MICROBIOLOGY: Please see below. IMAGING: Abdominal ultrasound Trace of ascites. Pancreas is obscured by bowel. Cholecystectomy. Otherwise, negative abdominal ultrasound. The abdominal Doppler vascular ultrasound: The hepatic vein demonstrates normal triphasic wave forms. There is antegrade flow in the portal vein. There is no evidence of hepatic vein or portal vein thrombus. CT scan of the abdomen and pelvis 918:No acute findings. The sigmoid diverticulitis in the prior study has resolved. DVT prophylaxis ordered?: Heparin every 8 ASSESSMENT AND PLAN: This is a 46-year-old female with acute hepatitis likely secondary to alcohol and left inguinal pain likely related to urinary tract infection. PROBLEMS: 1. Acute Hepatitis: The patient did admit to me that she's been drinking excessively and heavily lately likely alcoholic hepatitis. Hepatitis panel is negative. We'll continue to monitor her liver function tests closely appears to be improving 2. Neutropenic fever: The patient's fever was subtle at 100.3 but was sustained for 45 minutes, the neutropenia was also quite subtle and on rechecking her labs she is no longer neutropenic. Likely related to urinary tract infection given her positive urine culture. The suspicion based on her peripheral smears that the leukopenia is related to antibiotic use however also suspicious for bone marrow suppression secondary to alcohol intake she does have macrocytosis as well. She is currently on broad-spectrum antibiotics I will narrow spectrum of Bactrim given her cultures sensitivity 3. Alcohol abuse: The patient is on thiamine and folic acid and multivitamin and on Serax, she is no longer tremulous her symptoms appear to be well controlled. 5. Gastroesophageal reflux disease: Continue with omeprazole 6. Mood disorder: Continue with Zoloft, Wellbutrin 7. Restless leg syndrome: Continue with Requip DISPOSITION: Continued monitor closely. Transfer to medical surgical floor with potential disposition home within the next 24-48 hours VS, I&O, 24H, [place] Vital Signs/I&O Vital Signs Date Time Temp Pulse Resp B/P (MAP) Pulse Ox O2 Delivery O2 Flow Rate FiO2 12/15/16 09:30 20 Room Air 12/15/16 07:30 97.3 62 120/72 (88) 94 I&O- Last 24 Hours up to 6 AM 12/16/16 05:59 Intake Total 500 ml Output Total 0 ml Balance 500 ml Laboratory Data 24H LABS Laboratory Tests 2 12/14/16 13:07: Prothrombin Time 16.1H, Prothromb Time International Ratio 1.26 12/14/16 15:37: Urine Amphetamines Screen NEGATIVE, Urine Benzodiazepines Screen NEGATIVE, Urine Opiates Screen POSITIVEH, Urine Methadone Screen NEGATIVE, Urine Barbiturates Screen NEGATIVE, Urine Phencyclidine Screen NEGATIVE, Urine Cocaine Metabolite Screen NEGATIVE, Urine Cannabinoids Screen NEGATIVE 12/15/16 05:13: White Blood Count 2.5L, Red Blood Count 3.72L, Hemoglobin 12.6, Hematocrit 36.2 , Mean Corpuscular Volume 97.3H, Mean Corpuscular Hemoglobin 33.8H, Mean Corpuscular Hemoglobin Concent 34.8, Red Cell Distribution Width 13.1, Platelet Count 86L, Neutrophils (%) (Auto) 29.2L, Lymphocytes (%) (Auto) 54.6H, Monocytes (%) (Auto) 6.6H, Eosinophils (%) (Auto) 4.0H, Basophils (%) (Auto) 0.5 , Neutrophils # (Auto) 0.7L, Lymphocytes # (Auto) 1.3L, Monocytes # (Auto) 0.2, Eosinophils # (Auto) 0.1, Basophils # (Auto) 0.0, Large Unclassified Cells % 5.0H, Large Unclassified Cells # 0.1, Anion Gap 6L, Glomerular Filtration Rate > 60.0, Blood Urea Nitrogen 7, Creatinine 0.57, Sodium Level 143, Potassium Level 3.6, Chloride Level 110H, Carbon Dioxide Level 27, Calcium Level 8.7, Aspartate Amino Transf (AST/SGOT) 292H, Alanine Aminotransferase (ALT/SGPT) 354H , Alkaline Phosphatase 123H, Total Bilirubin 0.4, Total Protein 5.9L, Albumin 2.8L, Magnesium Level 1.7L, Albumin/Globulin Ratio 0.90L CBC/BMP Laboratory Tests 12/15/16 05:13 Red Blood Count 3.72 L, Mean Corpuscular Volume 97.3 H, Mean Corpuscular Hemoglobin 33.8 H, Mean Corpuscular Hemoglobin Concent 34.8, Red Cell Distribution Width 13.1, Neutrophils (%) (Auto) 29.2 L, Lymphocytes (%) (Auto) 54.6 H, Monocytes (%) (Auto) 6.6 H, Eosinophils (%) (Auto) 4.0 H, Basophils (%) (Auto) 0.5, Neutrophils # (Auto) 0.7 L, Lymphocytes # (Auto) 1.3 L, Monocytes # (Auto) 0.2, Eosinophils # (Auto) 0.1, Basophils # (Auto) 0.0, Calcium Level 8.7 , Aspartate Amino Transf (AST/SGOT) 292 H, Alanine Aminotransferase (ALT/SGPT) 354 H, Alkaline Phosphatase 123 H, Total Bilirubin 0.4, Total Protein 5.9 L, Albumin 2.8 L Microbiology Microbiology 12/13/16 Blood Culture - Preliminary, Resulted No growth after 24 hours . All specim... 12/13/16 Blood Culture - Preliminary, Resulted No growth after 24 hours . All specim... 12/13/16 Urine Culture - Final, Complete Escherichia Coli MIMA JACOME MD Dec 15, 2016 13:19
[2016-12-15] MEDS ORDERED: POTASSIUM CHLORIDE 10 MEQ SR TABLET PO ONE (14:15)
[2016-12-15] MEDS ORDERED: MAG SULF 1GM/100ML (MAG RUN) 1 GM in APPROPRIATE DILUENT 1 EA IV ONE (15:00)
[2016-12-15 17:10] VITALS: BP 112/67
[2016-12-15] MEDS: ONDANSETRON 4MG/2ML VIAL (J2405) IV PRN (21:12)
[2016-12-15] MEDS: rOPINIRole 0.25 MG TAB(REQUIP) PO SCH (21:13)
[2016-12-15 22:00] VITALS: BP 111/53
[2016-12-16] MEDS: OXAZEPAM 15 MG CAP PO SCH (05:23)
[2016-12-16] MEDS: HEPARIN SOD (PORCINE) 5000 UNITS/ML VIAL SC SCH (05:24)
[2016-12-16 06:00] VITALS: BP 109/62
[2016-12-16 06:24] LABS: BASO % 0.7 % (0.0-1.0); EOS # 0.1 K/mm3 (0.0-0.50); EOS % 5.2 % (0.0-3.0); LARGE UNSTAINED CELL # 0.1 K/mm3 (0.0-0.4); LARGE UNSTAINED CELL % 6.3 % (0.0-4.0); LYMPH % 48.9 % (24.0-44.0); MEAN CORPUSCULAR HGB CONC 34.7 g/dl (32.0-36.5); MEAN CORPUSCULAR VOLUME 97.8 fl (80.0-96.0); MONO # 0.1 K/mm3 (0.0-0.8); NEUTROPHILS # 0.7 K/mm3 (1.8-7.7); NEUTROPHILS % 31.9 % (36.0-66.0); PLATELET COUNT, AUTOMATED 102 k/mm3 (150-450); RED CELL DISTRIBUTION WIDTH 13.1 % (11.5-14.5)
[2016-12-16 06:31] LABS: ALBUMIN 2.8 GM/DL (3.2-5.2); ALBUMIN/GLOBULIN RATIO 0.85 (1.00-1.93); ALKALINE PHOSPHATASE 113 U/L (45-117); ALT/SGPT 252 U/L (12-78); ANION GAP 7 MEQ/L (8-16); AST/SGOT 143 U/L (15-37); BILIRUBIN,TOTAL 0.2 MG/DL (0.2-1.0); BLOOD UREA NITROGEN 8 MG/DL (7-18); CALCIUM LEVEL 9.3 MG/DL (8.5-10.1); CARBON DIOXIDE LEVEL 29 MEQ/L (21-32); CHLORIDE LEVEL 113 MEQ/L (98-107); CREATININE FOR GFR 0.64 MG/DL (0.55-1.02); GLOMERULAR FILTRATION RATE > 60.0 (>58); GLUCOSE, FASTING 89 MG/DL (70-105); MAGNESIUM LEVEL 1.9 MG/DL (1.8-2.4); POTASSIUM SERUM 4.5 MEQ/L (3.5-5.1); SODIUM LEVEL 149 MEQ/L (136-145); TOTAL PROTEIN 6.1 GM/DL (6.4-8.2)
[2016-12-16 08:07] LABS: URINE ETHANOL 1 Negative % (Cutoff=0.020)
[2016-12-16] MEDS: BACTRIM 160MG/800MG DS TAB PO SCH (08:08)
[2016-12-16] MEDS: buPROPion **XL** TABLET 150MG (WELLBUTRIN XL) PO SCH (08:08)
[2016-12-16] MEDS: MULTIVITAMINS/MINERALS THERAP 1 TAB PO SCH (08:09)
[2016-12-16] MEDS: OMEPRAZOLE 20 MG CAP PO SCH (08:09)
[2016-12-16] MEDS: ASPIRIN 81 MG ENTERIC TAB PO SCH (08:09)
[2016-12-16] MEDS: VITAMIN D 1,000 INTERNATIONAL UNITS TABLET PO SCH (08:09)
[2016-12-16] MEDS: SERTRALINE 100 MG TAB PO SCH (08:09)
[2016-12-16] MEDS: oxyCODONE 5MG TAB PO PRN (08:10)
[2016-12-16] MEDS ORDERED: THIAMINE 100 MG TAB PO SCH (09:00)
[2016-12-16] MEDS ORDERED: MULTIVITAMINS/MINERALS THERAP 1 TAB PO SCH (09:00)
[2016-12-16] MEDS ORDERED: FOLIC ACID 1 MG TAB PO SCH (09:00)
[2016-12-16] MEDS ORDERED: FOLI1TAB4 PO (09:39)
[2016-12-16] MEDS ORDERED: VITMTA PO (09:39)
[2016-12-16] MEDS ORDERED: OXAZ15CA4 PO (09:39)
[2016-12-16] MEDS ORDERED: SULF1TAB23 PO (09:39)
[2016-12-16] MEDS ORDERED: THIA100TA PO (09:39)
--- NOTE | 2016-12-16 21:04 | DSES ---
DATE OF ADMISSION: 12/13/2016 DATE OF DISCHARGE: 12/16/2016 DISCHARGE DIAGNOSIS: Urinary tract infection. SECONDARY DIAGNOSES: 1. Alcoholic hepatitis. 2. Neutropenic fever. 3. Alcohol abuse. 4. Gastroesophageal reflux disease. 5. Mood disorder. 6. Restless leg syndrome. HOSPITAL COURSE: The patient is a 46-year-old female who initially presented on December 13. At that time she presented with sharp abdominal pain in the left lower quadrant associated with episodic diarrhea and nausea and vomiting. She had recently finished a course of Cipro and Flagyl in September for diverticulitis. At the time of admission she was neutropenic with white blood cells (WBC) of 0.9, and she did have a sustained temperature of 100.3. There was concern about neutropenic fever, and the patient was started on broad-spectrum antibiotics and admitted to the progressive care unit. She did quickly improve. She had no further fevers. Imaging of the belly was unrevealing. Her urinalysis (UA) was slightly abnormal, but urine culture was positive for Escherichia (E) coli. She did improve with treatment with antibiotics for her urinary tract infection based on culture and sensitivities to the point that her symptoms did resolve. She had no further nausea and vomiting and no further diarrhea. She was noted to have fairly impressive hepatitis with AST peaking at 1417. It did quickly trend down. She did admit to me that she had been drinking quite aggressively in the days prior to admission. This was felt to be related to alcoholic hepatitis, and toxicology screen was unimpressive. IFEOMA was negative. Hepatitis panel was negative. HIV test was negative. SUBJECTIVE: This morning the patient tells me she feels well. Her pain is resolved. She is eager to go home. OBJECTIVE: VITAL SIGNS: Temperature 96.9, pulse 64, respiratory rate 18, blood pressure (BP ) 109/62, oxygen saturation 95% on room air. GENERAL: She is an obese female lying flat in bed. She does not appear to be in any acute distress. She is comfortable. HEENT: Cranial nerves II-XII are grossly intact. She has moist mucous membranes. No elevation in central venous pressure (CVP). CARDIOVASCULAR: S1, S2, regular. RESPIRATORY: Clear. ABDOMEN: Benign. There is no tenderness. EXTREMITIES: No clubbing, cyanosis, or edema. LABORATORY STUDIES: WBC 2.0, hemoglobin 12.6, hematocrit 36.2, platelet count 102. Chemistry panel: Sodium 149, potassium 4.5, chloride 113, bicarbonate 29, BUN 8, creatinine 0.6. AST 143, continues to trend down, ALT 252, continues to trend down. TSH within normal limits. A negative test. An unimpressive lipid panel. INR 1.2. Toxicology positive only for opiates, which she received in the hospital, but otherwise negative. An IFEOMA was negative. Hepatitis panel and HIV panels were negative. Urine culture was positive for E. coli, resistantly on to levofloxacin. Blood cultures were negative. IMAGING: The patient did have a CT scan of the abdomen and pelvis, which revealed no acute findings, unresolved diverticulitis. She also had an abdominal ultrasound, which revealed trace ascites but otherwise negative abdominal ultrasound, and abdominal Doppler vascular ultrasound was negative with antegrade flow in the portal vein. ASSESSMENT AND PLAN: This is a 46-year-old female with urinary tract infection and alcoholic hepatitis. 1. Acute alcoholic hepatitis secondary to excessive alcohol intake. She probably has some underlying chronic alcoholic hepatitis and may even have some early cirrhosis. Her hepatitis panel is negative. It appears this is likely all related to alcohol. The longer she remains in the hospital and away from alcohol, the better her liver enzymes do appear. I did have a lengthy discussion with her about complete alcohol cessation. If she continues on this path, she could likely drink herself to . She demonstrated good understanding regarding this. 2. Neutropenic fever. Her fever was actually quite subtle at 100.3 but sustained for 45 minutes. Her neutropenia was also quite subtle given that upon rechecking it had resolved. Likely her neutropenia was related to bone marrow suppression secondary to alcohol abuse versus recent antibiotic use as documented by the pathologist who reviewed her peripheral smear. In any event, it appears to be relatively stable and fairly chronic. Her fever is likely related to urinary tract infection, which is being treated with by mouth antibiotics and does appear to be resolving quite well. 3. Alcohol abuse. She is on thiamine, folic acid, multivitamin. She is requiring as-needed Serax for her withdrawal symptoms, which she will discharged with a limited supply of this, as it does appear to be resolving. 4. Gastroesophageal reflux disease. Continue with omeprazole. 5. Mood disorder. Continue with sertraline and bupropion. 6. Restless leg syndrome. Continue with Requip. DISPOSITION: The patient's clinical status has resolved. She is significantly improved. She is being discharged home. She is functional with her activities of daily living (ADLs) and at her functional baseline. She will followup with her primary care physician (PCP) at [facility] within 7 days. She is able to return to work on . Her diet is as prior to admission. She is to return to the ER if symptoms worsen. MEDICATIONS AT TIME OF DISCHARGE: - folic acid 1 mg daily - multivitamin one tablet daily - thiamine 100 mg daily - Bactrim one tablet by mouth twice a day for 12 additional days - aspirin 81 mg daily - bupropion 150 mg daily - vitamin D 1000 units daily - Lasix 20 mg daily - multivitamin one tablet daily - omeprazole 20 mg daily - ropinirole 0.25 mg at bedtime - sertraline 100 mg twice a day - The patient is being discharged on oxazepam as needed as needed for anxiety. Greater than 30 minutes spent organizing disposition. Patient is to strictly avoid alcohol. MTDD
[2016-12-23 00:07] LABS: GC Morphine 7140 ng/mL (Cutoff=200)
== END 2016-12-16 10:55 | disposition home or self-care (01) | DRG 463 ==
LOC: EDBD 15:55 → M ED 15:55 → M ED INP 22:06 → M PCU 12-14 01:20 → M MSPAV 12-15 17:10
PROVIDERS: ADMIT Internal Medicine; ATTEND Internal Medicine
DX: N39.0 Urinary tract infection, site not specified (principal); F32.9 Major depressive disorder, single episode, unspecified; K70.10 Alcoholic hepatitis without ascites; F41.9 Anxiety disorder, unspecified; F10.10 Alcohol abuse, uncomplicated; R10.32 Left lower quadrant pain; K21.9 Gastro-esophageal reflux disease without esophagitis; G25.81 Restless legs syndrome; B96.20 Unspecified Escherichia coli [E. coli] as the cause of diseases classified elsewhere; Z86.73 Personal history of transient ischemic attack (TIA), and cerebral infarction without residual deficits; Z98.84 Bariatric surgery status; Z88.0 Allergy status to penicillin; Z90.49 Acquired absence of other specified parts of digestive tract; Z90.710 Acquired absence of both cervix and uterus; Z79.82 Long term (current) use of aspirin; Z79.899 Other long term (current) drug therapy

== ENCOUNTER 2017-07-13 15:08 | Emergency (ER) | payer OTHER, BC ==
[2017-07-13] MEDS: ASPIRIN 325 MG TAB PO (15:31)
== END 2017-07-13 16:48 | disposition home or self-care (01) ==
LOC: M ED 15:08
DX: Z04.1 Encounter for examination and observation following transport accident (principal); S16.1XXA Strain of muscle, fascia and tendon at neck level, initial encounter; S63.615A Unspecified sprain of left ring finger, initial encounter; V43.52XA Car driver injured in collision with other type car in traffic accident, initial encounter; Y92.410 Unspecified street and highway as the place of occurrence of the external cause; I10 Essential (primary) hypertension; E78.00 Pure hypercholesterolemia, unspecified; Z79.82 Long term (current) use of aspirin; Z79.899 Other long term (current) drug therapy; Z88.0 Allergy status to penicillin; Z98.0 Intestinal bypass and anastomosis status; Z86.73 Personal history of transient ischemic attack (TIA), and cerebral infarction without residual deficits
CPT/HCPCS: 73130

== ENCOUNTER → 2018-01-23 | Outpatient (REF) | payer BC ==
[2018-01-23 18:33] LABS: C REACTIVE PROTEIN QUANTITATIV < 0.30 MG/DL (0.00-0.30)
== END ==
LOC: M LAB REF 17:19
DX: R19.7 Diarrhea, unspecified (principal)
CPT/HCPCS: 86140

== ENCOUNTER 2018-02-02 22:24 | Emergency (ER) | payer BC ==
[2018-02-02] MEDS: KETOROLAC 30 MG/ML VIAL (J1885) IV (23:03)
[2018-02-02] MEDS: dexameTHASONE 20 MG/5 ML VIAL (J1100) IV (23:03)
[2018-02-02] MEDS: NS 500 ML IV (23:03)
[2018-02-02 23:06] LABS: BASO % 0.4 % (0.0-1.0); EOS # 0.1 10^3/uL (0.0-0.50); EOS % 1.8 % (0.0-3.0); HEMATOCRIT 39.9 % (36.0-47.0); HEMOGLOBIN 13.4 g/dl (12.0-15.5); IMMATURE GRANULOCYTE % 0.3 % (0-3.0); LYMPH # 3.2 10^3/uL (1.5-4.5); LYMPH % 47.1 % (24.0-44.0); MEAN CORPUSCULAR HGB CONC 33.6 g/dl (32.0-36.5); MEAN CORPUSCULAR VOLUME 92.4 fl (80.0-96.0); MONO # 0.7 10^3/uL (0.0-0.8); MONO % 9.7 % (0.0-5.0); NEUTROPHILS # 2.7 10^3/uL (1.8-7.7); NEUTROPHILS % 40.7 % (36.0-66.0); PLATELET COUNT, AUTOMATED 262 10^3/uL (150-450); RED BLOOD COUNT 4.32 10^6/uL (4.00-5.40); RED CELL DISTRIBUTION WIDTH 12.4 % (11.5-14.5); WHITE BLOOD COUNT 6.7 10^3/uL (4.0-10.0)
[2018-02-02 23:18] LABS: INR 0.96; PROTHROMBIN TIME 12.9 SECONDS (12.1-14.4)
[2018-02-02 23:19] LABS: PARTIAL THROMBOPLASTIN TIME 26.3 SECONDS (25.4-37.6)
[2018-02-02 23:31] LABS: ANION GAP 9 MEQ/L (8-16); BLOOD UREA NITROGEN 19 MG/DL (7-18); CALCIUM LEVEL 9.6 MG/DL (8.5-10.1); CARBON DIOXIDE LEVEL 28 MEQ/L (21-32); CHLORIDE LEVEL 103 MEQ/L (98-107); CPK CREATINE PHOSPHOKINASE 69 U/L (26-192); CREATININE FOR GFR 0.89 MG/DL (0.55-1.30); GLOMERULAR FILTRATION RATE > 60.0 (>58); GLUCOSE, FASTING 81 MG/DL (70-100); MB/CK RELATIVE INDEX 2.03 (< OR =4); POTASSIUM SERUM 3.8 MEQ/L (3.5-5.1); SODIUM LEVEL 140 MEQ/L (136-145); TROPONIN I < 0.02 NG/ML (< 0.10)
[2018-02-02] MEDS ORDERED: ISOVUE-370 76% 100ML VIAL (Q9967) As Ordered (23:42)
== END 2018-02-03 01:28 | disposition home or self-care (01) ==
LOC: M ED 02-03 01:28
DX: R07.1 Chest pain on breathing (principal); I10 Essential (primary) hypertension; K21.9 Gastro-esophageal reflux disease without esophagitis; M54.9 Dorsalgia, unspecified; G25.81 Restless legs syndrome; F41.9 Anxiety disorder, unspecified; Z98.84 Bariatric surgery status; Z88.0 Allergy status to penicillin; Z79.899 Other long term (current) drug therapy; Z79.82 Long term (current) use of aspirin
CPT/HCPCS: J1100

== ENCOUNTER 2018-10-20 08:44 | Emergency (ER) | payer BC ==
[~2018-10-20] VITALS: Ht 170.2 cm; Wt 81.8 kg
[~2018-10-20 08:44] MED LIST changes: +ASPI81TAEC PO; +FOLI1TAB11 PO; +IBUPOTC PO; +KETO10TAB PO; -OMEP20CA3 PO; +OMEP20CA4 PO; +OXAZ15CA4 PO; +ROBA500T PO; -ROPI0.25 PO; +ROPI0.253 PO; +SULF1TAB93 PO; +THIA100TA PO; +VITA100066 PO
[2018-10-20] MEDS ORDERED: SERT-141 PO (09:11)
[2018-10-20] MEDS ORDERED: HYDR50TA70 (09:11)
[2018-10-20 09:34] LABS: BASO % 0.6 % (0.0-1.0); EOS # 0.1 10^3/uL (0.0-0.50); EOS % 1.9 % (0.0-3.0); HEMATOCRIT 39.8 % (36.0-47.0); HEMOGLOBIN 13.2 g/dl (12.0-15.5); LYMPH # 1.5 10^3/uL (1.5-4.5); LYMPH % 28.5 % (24.0-44.0); MEAN CORPUSCULAR HGB CONC 33.2 g/dl (32.0-36.5); MEAN CORPUSCULAR VOLUME 96.6 fl (80.0-96.0); MONO # 0.6 10^3/uL (0.0-0.8); MONO % 10.2 % (0.0-5.0); NEUTROPHILS # 3.2 10^3/uL (1.8-7.7); NEUTROPHILS % 58.6 % (36.0-66.0); PLATELET COUNT, AUTOMATED 240 10^3/uL (150-450); RED BLOOD COUNT 4.12 10^6/uL (4.00-5.40); WHITE BLOOD COUNT 5.4 10^3/uL (4.0-10.0)
[2018-10-20 09:57] LABS: BLOOD UREA NITROGEN 16 MG/DL (7-18); CALCIUM LEVEL 8.8 MG/DL (8.5-10.1); CARBON DIOXIDE LEVEL 24 MEQ/L (21-32); CHLORIDE LEVEL 113 MEQ/L (98-107); CK-MB VALUE MASS 1.6 NG/ML (<3.6); CPK CREATINE PHOSPHOKINASE 80 U/L (26-192); CREATININE FOR GFR 0.82 MG/DL (0.55-1.30); GLOMERULAR FILTRATION RATE > 60.0 (>58); GLUCOSE, FASTING 97 MG/DL (70-100); POTASSIUM SERUM 4.8 MEQ/L (3.5-5.1); SODIUM LEVEL 143 MEQ/L (136-145); TROPONIN I < 0.02 NG/ML (< 0.10)
--- NOTE | 2018-10-20 10:01 | REP ---
The portable chest, 09:43 a.m., single AP view with the patient upright: Comparison is 12/13/2016. The lung robertson are clear. The cardiac size is normal. The vinnie, mediastinum, and skeletal structures are unremarkable. Impression: Negative portable chest. There is no interval change. Electronically Signed by Rodney Carver MD 10/20/2018 09:52 A
[2018-10-20] MEDS ORDERED: ISOVUE-370 76% 100ML VIAL (Q9967) As Ordered ONE (10:10)
[2018-10-20 10:26] LABS: ALBUMIN 3.5 GM/DL (3.2-5.2); ALT/SGPT 22 U/L (12-78); BILIRUBIN,DIRECT 0.1 MG/DL (0.0-0.2); BILIRUBIN,TOTAL 0.3 MG/DL (0.2-1.0); LIPASE 224 U/L (73-393); TOTAL PROTEIN 7.1 GM/DL (6.4-8.2)
--- NOTE | 2018-10-20 11:04 | REP ---
CT ANGIOGRAM CHEST: TECHNIQUE: Axial contrast enhanced images from the thoracic inlet to the upper abdomen using 100 mL Isovue 370 intravenous contrast material with multiplanar reformations. There is no CT evidence of pulmonary embolism. There is no thoracic aortic aneurysm or dissection. There is no evidence of mediastinal, hilar, or chest wall lymphadenopathy. The heart is normal in size. There is no pleural or pericardial effusion. No infiltrate is seen in either lung. There are a few subcentimeter nodular opacities in the left lower lobe, which have remained stable since prior studies, most recent of which is 02/02/2018. There are mild degenerative changes of the spine. IMPRESSION: No CT evidence of pulmonary embolus or aortic dissection. No acute infiltrate. Electronically Signed by Rodney Truong MD 10/24/2018 05:25 P
--- NOTE | 2018-10-20 11:04 | REP ---
CT ABDOMEN AND PELVIS WITH IV CONTRAST: TECHNIQUE: Axial contrast enhanced images from the lung bases to the pubic symphysis using 100 mL Isovue 370 intravenous contrast material with multiplanar reformations. There is a small hiatal hernia. The patient has had prior gastric bypass surgery, a cholecystectomy, and hysterectomy. The liver, spleen, adrenals, pancreas and kidneys are unremarkable. There is no hydronephrosis. There is no significant biliary dilatation. There is no abdominal aortic aneurysm. There is no adenopathy. There is no free air or free fluid. No bowel inflammation is seen. The appendix is normal. I see no pelvic mass. Urinary bladder is mildly distended and grossly unremarkable. IMPRESSION: No acute abnormality is detected as discussed above. Electronically Signed by Rodney Truong MD 10/24/2018 05:25 P
[2018-10-20] MEDS ORDERED: ONDANSETRON 4MG/2ML VIAL (J2405) IV ONE (11:15)
[2018-10-20] MEDS ORDERED: MORPHINE 2 MG/ML 1ML SYRINGE (J2270) IV ONE ×2 (11:15→14:00)
[2018-10-20] MEDS ORDERED: LORazepam 2 MG/ML VIAL (J2060) IV STA (11:15)
[2018-10-20 14:39] LABS: CK-MB VALUE MASS < 1.0 NG/ML (<3.6); CPK CREATINE PHOSPHOKINASE 64 U/L (26-192); MB/CK RELATIVE INDEX 1.56 (< OR =4); TROPONIN I < 0.02 NG/ML (< 0.10)
[2018-10-20 15:30] VITALS: BP 112/64
--- NOTE | 2018-10-21 09:28 | ECGEPIP ---
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
--- NOTE | 2018-10-21 09:34 | ECGEPIP ---
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
== END 2018-10-20 15:57 | disposition home or self-care (01) ==
LOC: M ED 08:44 → EDBD 08:44 → EDSEX 08:44 → M ED 15:57
DX: R07.9 Chest pain, unspecified (principal); R10.9 Unspecified abdominal pain; I10 Essential (primary) hypertension; E78.5 Hyperlipidemia, unspecified; F33.9 Major depressive disorder, recurrent, unspecified; F41.9 Anxiety disorder, unspecified; F20.9 Schizophrenia, unspecified; I69.351 Hemiplegia and hemiparesis following cerebral infarction affecting right dominant side; Z87.442 Personal history of urinary calculi; Z79.899 Other long term (current) drug therapy; Z79.82 Long term (current) use of aspirin; Z88.0 Allergy status to penicillin
CPT/HCPCS: 71045; 71275; 74177; 80048; 80076; 82550; 82553; 83690; 84484; 85025; 93005; 93041; 94760; 96374; 96375; 96376; 99285; J2060; J2270; J2405; Q9967

== ENCOUNTER → 2019-09-21 | Outpatient (REF) | payer OTHER ==
[~2019-09-21] MED LIST changes: +HYDR50TA70; +OMEP1CAP73 PO; -OMEP20CA4 PO; +ONDA-83; -ONDA4TAB5; +SERT-141 PO
== END ==
LOC: M LAB REF 16:36
PROVIDERS: ATTEND Internal Medicine
DX: R41.3 Other amnesia (principal)

== ENCOUNTER → 2019-11-19 | Outpatient (CLI) | payer OTHER ==
[2019-11-19 12:59] LABS: BASO % 0.4 % (0.0-1.0); EOS % 0.2 % (0.0-3.0); HEMATOCRIT 39.5 % (36.0-47.0); HEMOGLOBIN 13.2 g/dl (12.0-15.5); LYMPH # 1.9 10^3/uL (1.5-5.0); LYMPH % 35.2 % (24.0-44.0); MEAN CORPUSCULAR HEMOGLOBIN 33.2 pg (27.0-33.0); MEAN CORPUSCULAR HGB CONC 33.4 g/dl (32.0-36.5); MEAN CORPUSCULAR VOLUME 99.5 fl (80.0-96.0); MONO # 0.6 10^3/uL (0.0-0.8); MONO % 11.7 % (0.0-5.0); NEUTROPHILS # 2.9 10^3/uL (1.5-8.5); NEUTROPHILS % 52.3 % (36.0-66.0); PLATELET COUNT, AUTOMATED 227 10^3/uL (150-450); RED BLOOD COUNT 3.97 10^6/uL (4.00-5.40); WHITE BLOOD COUNT 5.5 10^3/uL (4.0-10.0)
[2019-11-19 13:32] LABS: ALBUMIN 3.3 GM/DL (3.2-5.2); ALT/SGPT 29 U/L (12-78); BILIRUBIN,TOTAL 0.6 MG/DL (0.2-1.0); BLOOD UREA NITROGEN 10 MG/DL (7-18); CALCIUM LEVEL 8.8 MG/DL (8.5-10.1); CARBON DIOXIDE LEVEL 25 MEQ/L (21-32); CHLORIDE LEVEL 108 MEQ/L (98-107); CREATININE FOR GFR 0.86 MG/DL (0.55-1.30); FOLATE 11.8 NG/ML; FREE T4 0.86 NG/DL (0.76-1.46); GLOMERULAR FILTRATION RATE > 60.0 (>51); GLUCOSE, FASTING 83 MG/DL (70-100); POTASSIUM SERUM 4.6 MEQ/L (3.5-5.1); RHEUMATOID FACTOR QUANT < 10.0 IU/ML (<15.0); SODIUM LEVEL 141 MEQ/L (136-145); TOTAL PROTEIN 6.9 GM/DL (6.4-8.2); VITAMIN B12 LEVEL 247 PG/ML
[2019-11-19 14:00] LABS: HEMOGLOBIN A1c 5.5 %
[2019-11-19 23:06] LABS: ERYTHROCYTE SEDIMENTATION RATE 8 mm/hr (0-30)
[2019-11-28 14:08] LABS: ANTI DOUBLE STRAND-DNA AB <1 IU/mL (0-9); ANTINUCLEAR ANTIBODIES DIRECT Positive (Negative); RNP ANTIBODIES <0.2 AI (0.0-0.9); SJOGREN'S ANTI SS-A <0.2 AI (0.0-0.9); SJOGREN'S ANTI SS-B <0.2 AI (0.0-0.9); SMITH ANTIBODIES <0.2 AI (0.0-0.9); VITAMIN B1 LEVEL WHOLE BLOOD 100.9 nmol/L (66.5-200.0)
== END ==
LOC: M LAB 09:52
PROVIDERS: ATTEND Psychiatry & Neurology Neurology
DX: Z11.3 Encounter for screening for infections with a predominantly sexual mode of transmission (principal); F03.90 Unspecified dementia, unspecified severity, without behavioral disturbance, psychotic disturbance, mood disturbance, and anxiety; E07.9 Disorder of thyroid, unspecified; R20.2 Paresthesia of skin

== ENCOUNTER 2020-09-15 16:10 | Observation (INO) | payer OTHER ==
[~2020-09-15] VITALS: Ht 170.2 cm; Wt 72.7 kg
[~2020-09-15 16:10] MED LIST changes: +ASPI-569 PO; -ASPI81TAEC PO; +BACTDSTA PO; +BUPR150T12 PO; -BUPR150T3 PO; -HYDR50TA70; +HYDR50TA70 PO; -SULF1TAB93 PO
[2020-09-15 16:59] LABS: BASO % 0.4 % (0.0-1.0); EOS # 0.1 10^3/uL (0.0-0.5); EOS % 1.1 % (0.0-3.0); HEMATOCRIT 35.9 % (36.0-47.0); HEMOGLOBIN 11.6 g/dl (12.0-15.5); LYMPH # 1.7 10^3/uL (1.5-5.0); LYMPH % 35.7 % (24.0-44.0); MEAN CORPUSCULAR HEMOGLOBIN 33.1 pg (27.0-33.0); MEAN CORPUSCULAR HGB CONC 32.3 g/dl (32.0-36.5); MEAN CORPUSCULAR VOLUME 102.6 fl (80.0-96.0); MONO # 0.6 10^3/uL (0.0-0.8); MONO % 11.8 % (2.0-8.0); NEUTROPHILS # 2.4 10^3/uL (1.5-8.5); NEUTROPHILS % 50.8 % (36.0-66.0); PLATELET COUNT, AUTOMATED 223 10^3/uL (150-450); WHITE BLOOD COUNT 4.8 10^3/uL (4.0-10.0)
[2020-09-15 17:19] LABS: ALBUMIN 3.2 GM/DL (3.2-5.2); ALT/SGPT 28 U/L (12-78); AMYLASE 75 U/L (25-115); BILIRUBIN,DIRECT 0.2 MG/DL (0.0-0.2); BILIRUBIN,TOTAL 0.4 MG/DL (0.2-1.0); BLOOD UREA NITROGEN 4 MG/DL (7-18); CALCIUM LEVEL 8.9 MG/DL (8.5-10.1); CARBON DIOXIDE LEVEL 27 MEQ/L (21-32); CHLORIDE LEVEL 110 MEQ/L (98-107); CK-MB VALUE MASS < 1.0 NG/ML (<3.6); CPK CREATINE PHOSPHOKINASE 42 U/L (26-192); GLOMERULAR FILTRATION RATE > 60.0 (>51); GLUCOSE, FASTING 82 MG/DL (70-100); LIPASE 238 U/L (73-393); MB/CK RELATIVE INDEX 2.38 (< OR =4); POTASSIUM SERUM 3.2 MEQ/L (3.5-5.1); SODIUM LEVEL 143 MEQ/L (136-145); TOTAL PROTEIN 6.5 GM/DL (6.4-8.2); TROPONIN I < 0.02 NG/ML (< 0.10)
--- NOTE | 2020-09-15 17:40 | REP ---
INDICATION: chest pain. COMPARISON: Comparison chest x-ray October 20, 2018.. TECHNIQUE: Single upright semi-erect AP view of the chest. FINDINGS: EKG electrodes are seen. Heart is not enlarged. There is platelike atelectasis in the left base. Lung robertson are otherwise clear. The pleural angles are sharp. Cardiomediastinal stretch that the pulmonary vasculature is not increased. IMPRESSION: Platelike atelectasis left base. Otherwise no acute disease. <Electronically signed by Alton Nelson > 09/15/20 [id number]
[2020-09-15 17:47] LABS: INR 0.95; PROTHROMBIN TIME 12.9 SECONDS (12.5-14.3)
[2020-09-15 17:48] LABS: PARTIAL THROMBOPLASTIN TIME 26.4 SECONDS (24.2-38.5)
[2020-09-15 17:55] LABS: NT-PRO BNP 833 PG/ML (<125)
[2020-09-15] MEDS ORDERED: ISOVUE-370 76% 100ML VIAL As Ordered ONE (17:57)
--- NOTE | 2020-09-15 18:59 | REPVR ---
PROCEDURE INFORMATION: Exam: CT Head Without Contrast Exam date and time: 09/15/2020 5:45 PM Age: 50 years old Clinical indication: Injury or trauma; Fall; Blunt trauma (contusions or hematomas); Dizziness; Additional info: Fall, dizzy TECHNIQUE: Imaging protocol: Computed tomography of the head without contrast. Radiation optimization: All CT scans at this facility use at least one of these dose optimization techniques: automated exposure control; mA and/or kV adjustment per patient size (includes targeted exams where dose is matched to clinical indication); or iterative reconstruction. COMPARISON: CT Head without contrast 07/25/2015 2:54 PM FINDINGS: Brain: The CSF spaces are consistent with patient's age. Faint hypodensities within the white matter tracts of both cerebral hemispheres are nonspecific but typically seen with small vessel disease. Other white matter disorders are not excluded. No intracranial hemorrhage or mass effect. No abnormal intra-axial or extra-axial fluid collections. Cerebral ventricles: No ventriculomegaly. Paranasal sinuses: Visualized sinuses are unremarkable. No fluid levels. Mastoid air cells: Visualized mastoid air cells are well aerated. Bones/joints: Unremarkable. No acute fracture. Soft tissues: Unremarkable. IMPRESSION: No acute abnormality. Electronically signed by: Martínez Pozo On 09/15/2020 18:58:53 PM
--- NOTE | 2020-09-15 19:17 | REPVR ---
PROCEDURE INFORMATION: Exam: CTA Chest With Contrast Exam date and time: 09/15/2020 5:45 PM Age: 50 years old Clinical indication: Shortness of breath; Additional info: SOB, chest pain x 2 d RO pe TECHNIQUE: Imaging protocol: Computed tomographic angiography of the chest with contrast. 3D rendering (Not supervised by radiologist): MIP and/or 3D reconstructed images were created by the technologist. Radiation optimization: All CT scans at this facility use at least one of these dose optimization techniques: automated exposure control; mA and/or kV adjustment per patient size (includes targeted exams where dose is matched to clinical indication); or iterative reconstruction. Contrast material: ISOVUE 370; Contrast volume: 100 ml; Contrast route: INTRAVENOUS (IV); COMPARISON: CT ANGIO CHEST 10/20/2018 10:15 AM FINDINGS: Pulmonary arteries: There are no pulmonary emboli. Aorta: There is no aortic dissection or aneurysm. Lungs: Bilateral ground-glass opacities most pronounced in the upper and lower lung zones. Findings most likely represent atelectasis. Clinical correlation to exclude pneumonitis suggested. Pleural spaces: Unremarkable. No pneumothorax. No pleural effusion. Heart: Unremarkable. No cardiomegaly. No pericardial effusion. Lymph nodes: Unremarkable. No enlarged lymph nodes. Bones/joints: The spine demonstrates mild degenerative changes. Soft tissues: Unremarkable. IMPRESSION: 1. Bilateral ground-glass opacities most pronounced in the upper and lower lung zones. Findings most likely represent atelectasis. Clinical correlation to exclude pneumonitis suggested. 2. There is no aortic dissection or aneurysm. 3. There are no pulmonary emboli. Electronically signed by: Tyrone Rodriguez On 09/15/2020 19:17:22 PM
--- NOTE | 2020-09-15 19:21 | REPVR ---
PROCEDURE INFORMATION: Exam: CT Abdomen And Pelvis With Contrast Exam date and time: 09/15/2020 5:45 PM Age: 50 years old Clinical indication: Other: Increasing girth TECHNIQUE: Imaging protocol: Computed tomography of the abdomen and pelvis with contrast. Radiation optimization: All CT scans at this facility use at least one of these dose optimization techniques: automated exposure control; mA and/or kV adjustment per patient size (includes targeted exams where dose is matched to clinical indication); or iterative reconstruction. Contrast material: ISOVUE 370; Contrast volume: 100 ml; Contrast route: INTRAVENOUS (IV); COMPARISON: CT ABD/PEL W/IV CONTRAST ONLY 10/20/2018 10:15 AM FINDINGS: Mediastinal space: A small hiatal hernia is present. Liver: Normal. No mass. Gallbladder and bile ducts: There has been a cholecystectomy. Pancreas: Normal. No ductal dilation. Spleen: Mild splenomegaly. Adrenal glands: Normal. No mass. Kidneys and ureters: Normal. No hydronephrosis. Stomach and bowel: This patient is status post gastric bypass surgery. Mild diverticulosis is present in the distal colon. No diverticulitis. Appendix: No evidence of appendicitis. Intraperitoneal space: Moderate free fluid in the cul-de-sac. Vasculature: Unremarkable. No abdominal aortic aneurysm. Lymph nodes: Unremarkable. No enlarged lymph nodes. Urinary bladder: Unremarkable as visualized. Reproductive: There has been a hysterectomy. Bones/joints: [id number] central spinal stenosis L3-L4 and moderate central spinal stenosis L4-L5. Bulging annuli L5-S1. Soft tissues: Small umbilical hernia. IMPRESSION: 1. Mild splenomegaly. 2. There has been a cholecystectomy. 3. This patient is status post gastric bypass surgery. 4. A small hiatal hernia is present. 5. There has been a hysterectomy. 6. Moderate free fluid in the cul-de-sac. 7. Mild diverticulosis is present in the distal colon. No diverticulitis. Electronically signed by: Tyrone Rodriguez On 09/15/2020 19:21:33 PM
[2020-09-15] MEDS ORDERED: FUROSEMIDE 40MG/4ML VIAL (J1940) IV ONE ×2 (19:30→21:30)
[2020-09-15 20:16] LABS: RSV AMPLIFICATION NEGATIVE (NEGATIVE)
[2020-09-15] MEDS ORDERED: MAALOX 30 ML SUSP *UDC PO PRN (20:25)
[2020-09-15] MEDS ORDERED: MOM 30ML SUSPENSION UDC PO PRN (20:25)
[2020-09-15] MEDS ORDERED: ACETAMINOPHEN TAB 650MG DOSE (2X325MG) PO PRN (20:25)
[2020-09-15] MEDS ORDERED: ZOLO100T PO (20:26)
[2020-09-15] MEDS ORDERED: VITA500T40 PO (20:26)
[2020-09-15] MEDS ORDERED: CREO12CA PO (20:26)
[2020-09-15] MEDS ORDERED: PROP40TA62 PO (20:26)
[2020-09-15] MEDS ORDERED: SUMA100T2 PO (20:26)
[2020-09-15] MEDS ORDERED: POTASSIUM CHLORIDE 10 MEQ SR TABLET PO ONE (20:35)
--- NOTE | 2020-09-15 20:40 | ECGEPIP ---
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
[2020-09-15] MEDS: hydrOXYzine 50 MG TAB PO SCH (21:00)
[2020-09-15] MEDS ORDERED: lisinopriL 5 MG TAB PO SCH (21:35)
--- NOTE | 2020-09-15 21:39 | HPEPDOC ---
[facility] Medical History & Physical Date of Admission Sep 15, 2020 Date of Service: Sep 15, 2020 Primary Care Physician: QUIANA JOSUE DO Attending Physician: SOCRATES POSADAS MD History and Physical CHIEF COMPLAINT: Chest pressure and retaining fluid HISTORY OF PRESENT ILLNESS: Mrs. Bennett is a 50-year-old female who presented to the ER with complaints of 2 days of chest pressure and increased fluid retention. The patient has a history of cardiomegaly and says she has been diagnosed with congestive heart failure in the past. Her last echocardiogram was done in [facility] about 2-1/2 years ago. She takes Lasix routinely. She has a history of significant alcohol abuse but stopped drinking on August 29, when she was diagnosed with significant pancreatic disease. She says that she has a bone marrow abnormality and that the red blood cells. Her "eating my pancreas". She was started on Creon. She says she went through significant withdrawals at home that lasted 4-7 days. She says she has not had a drink since. She complains that for the last 2 days she has been experiencing feeling of somebody sitting on her chest. She says this is accompanied by shortness of breath and she has been having some nausea and vomi ting. She also complains of diarrhea since she started Creon. She denies any fever or chills, but does state that she has been lightheaded and dizzy. She has a history of stroke with residual right-sided weakness, which results in her falling frequently at home. She does not use a cane or walker to assist with ambulation. Her last fall was about 2 days ago and she complains of right lateral posterior rib pain. CTA of the chest showed some groundglass opacities bilaterally, which was felt to be secondary to atelectasis. The patient has not been vaccinated for covert, but covert was negative in the ER as well as influenza and RSV. She was satting 98% on room air. Blood pressure was elevated at 172/92. She was afebrile. BNP was elevated at 833. She had decreased potassium at 3.2. Creatinine were 4 and 0.5. Hemoglobin and hematocrit were decreased at 11.6 and 35.9. The platelets were within normal limits. CT of the head was negative. CT of the abdomen and pelvis showed mild splenomegaly, with signs of previous cholecystectomy and gastric bypass surgery. A small hiatal hernia was noted and radiology noted that the patient had a previous hysterectomy. There was moderate free fluid in the cul-de-sac and mild diverticulosis. Initial troponin was negative. EKG showed no acute ST changes. PAST MEDICAL HISTORY: 1. Anxiety. 2. Depression. 3. Gastroesophageal reflux disease. 4. CVA with residual right-sided weakness. 5. Morbid obesity status post gastric bypass. 6. Hypertension. 7. Hyperlipidemia. 8. Bulimia, which is ongoing. 9. Kidney stones. 10. DVT. 11. Early onset dementia PAST SURGICAL HISTORY: 1. Gastric bypass. 2. Hysterectomy. 3. Cholecystectomy. 4. Tonsillectomy SOCIAL HISTORY: Tobacco use:. Denies ETOH: Patient states she quit drinking on 63, but previously drank between 15 and 30 beers a day Illicit drug use:. Denies Patient lives with: Current FAMILY HISTORY: Patient's mother at age 72 with a history of coronary artery disease, diabetes, lung cancer and CVA. Her father is 80 years old and has a history of diabetes, colon cancer, coronary artery disease and Alzheimer's. REVIEW OF SYSTEMS: Complete 10 point review systems is negative except as noted above PHYSICAL EXAMINATION: Patient is seen in the ER, sitting up on the stretcher.. She is alert and oriented x 3. HEENT is WNL. Neck is supple. Lungs are clear to auscultation. Heart regular rate and rhythm without murmur. Abdomen is soft, non-tender to palpation with bowel sounds positive. Extremities with good ROM. Weakness noted at the right upper and right lower extremities. 2+ lower extremity edema bilaterally. Pedal pulses are positive. Skin is warm and dry with no obvious rash or lesion. Neuro: grossly intact. Psych: She is pleasant and cooperative ASSESSMENT AND PLAN: 1. Acute exacerbation of congestive heart failure, type unknown. Will continue the patient on Lasix twice a day. Monitor intake and output closely. Will check echocardiogram. 2. Hypokalemia. Supplement and recheck labs in the morning. We'll continue potassium supplement with ongoing IV Lasix. 3. Hypertension. Patient is not currently on any antihypertensives. Continue propranolol. Monitor with routine vital signs and continue to adjust medications as needed based on trends. 4. Atypical chest pain. Continue to monitor troponins. Monitor on telemetry. 5. Pancreatic insufficiency. Continue Creon. 6. History of CVA with right-sided weakness and falls at home. Fall precautions. Will ask physical and occupational therapies to evaluate and treat. 7. Psychiatric: Anxiety, depression and bulimia. Continue supportive care. 8. DVT prophylaxis. Lovenox. CODE STATUS: CODE STATUS was discussed with the patient desires to be considered full code. She states her would act as her surrogate if she were unable to make her own decisions. Patient is considered high risk of further deterioration including worsening heart failure or respiratory distress. She is admitted for close observation and further evaluation and expected to remain at least one midnight. Vital Signs Vital Signs Date Time Temp Pulse Resp B/P (MAP) Pulse Ox O2 Delivery O2 Flow Rate FiO2 09/15/20 17:31 09/15/20 16:11 97.1 74 20 98 Room Air Laboratory Data Labs 24H Laboratory Tests 2 09/15/20 16:26: Ammonia < 10 09/15/20 16:29: Anion Gap 6L, Glomerular Filtration Rate > 60.0, Calcium Level 8.9, Total Bilirubin 0.4, Direct Bilirubin 0.2, Aspartate Amino Transf (AST/SGOT) 47H, Alanine Aminotransferase (ALT/SGPT) 28, Alkaline Phosphatase 65, Total Creatine Kinase 42, Creatine Kinase MB < 1.0, Creatine Kinase MB Relative Index 2.38, Troponin I < 0.02, NS-Uto-U-Type Natriuretic Peptide 833H, Total Protein 6.5, Albumin 3.2, Albumin/Globulin Ratio 1.0L, Amylase Level 75, Lipase 238 09/15/20 16:30: Immature Granulocyte % (Auto) 0.2, Neutrophils (%) (Auto) 50.8, Lymphocytes (%) (Auto) 35.7, Monocytes (%) (Auto) 11.8H, Eosinophils (%) (Auto) 1.1, Basophils (%) (Auto) 0.4, Neutrophils # (Auto) 2.4, Lymphocytes # (Auto) 1.7, Monocytes # (Auto) 0.6, Eosinophils # (Auto) 0.1, Basophils # (Auto) 0.0, Nucleated Red Blood Cells % (auto) 0.0, Lactic Acid Level 0.9 09/15/20 17:14: POC Troponin I (Misc) 0.00 09/15/20 17:20: Prothrombin Time 12.9, Prothromb Time International Ratio 0.95, Activated Partial Thromboplast Time 26.4 09/15/20 17:27: POC Glucose (Misc Panel) 82, POC Sodium (Misc Panel) 146H, POC Potassium (Misc Panel) 3.0L, POC Chloride (Misc Panel) 104, POC Total CO2 (Misc Panel) 23.0, POC Blood Urea Nitrogen (Misc Panel < 3L, POC Ionized Calcium (Misc Panel) 5.1, POC Creatinine (Misc Panel) 0.5L, POC Hematocrit (Misc Panel) 36.0L 09/15/20 19:21: Coronavirus (COVID-19)(PCR) NEGATIVE, Influenza Type A (RT-PCR) NEGATIVE, Influenza Type B (RT-PCR) NEGATIVE, Respiratory Syncytial Virus (PCR) NEGATIVE CBC/BMP Laboratory Tests 09/15/20 16:29 09/15/20 16:30 Home Medications Scheduled Aspirin (Aspirin EC) 81 Mg Tabec, 81 MG PO DAILY Cyanocobalamin (Vitamin B-12) (Vitamin B-12) 500 Mcg Tablet, 500 MCG PO DAILY Furosemide (Furosemide) 20 Mg Tab, 20 MG PO DAILY Hydroxyzine HCl (Hydroxyzine HCl) 50 Mg Tablet, 50 MG PO TID Multivitamins (Thera M Plus Tablet) 1 Tab Tab, 1 TAB PO DAILY Pancreatic Enzymes (Creon Dr 12,000 Units Capsule) 1 Each Capsule.dr, 12,000 UNITS PO WM Propranolol HCl (Propranolol HCl) 40 Mg Tablet, 40 MG PO DAILY Ropinirole HCl (Ropinirole HCl) 0.25 Mg Tab, 0.25 MG PO TID Sertraline Hcl (Zoloft) 100 Mg Tablet, 100 MG PO DAILY Scheduled PRN Sumatriptan Succinate (Sumatriptan Succinate) 100 Mg Tablet, 100 MG PO DAILY PRN for MIGRAINE MAY REPEAT IN TWO HOURS Allergies Coded Allergies: Penicillins (Verified Allergy, Intermediate, hives, 10/20/18) A-FIB/CHADSVASC A-FIB History Current/History of A-Fib/PAF?: No KIMBERLEE PRADHAN Sep 15, 2020 21:39
[2020-09-15] MEDS: POTASSIUM CHLORIDE 10 MEQ SR TABLET PO SCH (22:30)
[2020-09-16] MEDS: POTASSIUM CHLORIDE 10 MEQ SR TABLET PO SCH (00:37)
--- NOTE | 2020-09-16 01:05 | ECHO ---
ECHOCARDIOGRAM DATE OF PROCEDURE: 09/15/2020 Age: 50 Gender: Female Height: 67 inches Weight: 160 pounds REFERRING PHYSICIAN: Mitzi Emanuel NP INDICATION: Cardiomegaly, chest pain unspecified, edema. MEASUREMENTS: 2D Measurements: Aortic root 3.1 cm Proximal ascending aorta 3.25 cm Left atrium 3.9 cm Intraventricular septum 1.14 cm Posterior wall 0.96 cm Left ventricle diastole 4.5 cm Left ventricle systole 2.4 cm Inferior vena cava 1.7 cm Doppler Measurements: No aortic stenosis No aortic regurgitation Aortic valve velocity 119 cm/s LVOT velocity 86.0 cm/s No mitral regurgitation Mitral E velocity 61.7 cm/s Mitral A velocity 75.3 cm/s Mitral deceleration time 272 msec No tricuspid regurgitation No pulmonic regurgitation Pulmonary artery acceleration time 141 msec MITRAL ANNULAR TISSUE DOPPLER E prime lateral 11.1 cm/s, E prime septal 10.7 cm/s DESCRIPTION: Rhythm was sinus. Image quality was fair. This was a 2D, M-mode, color flow Doppler, and pulsed wave Doppler examination including mitral annular tissue Doppler. CONCLUSIONS: 1. Mild left atrial dilatation: Otherwise normal echocardiogram Doppler. 2. Normal left ventricle internal dimensions and wall thickness. Normal regional LV wall motion of wall thickening. Normal LV systolic function. LVEF 65% by visual assessment. Normal LV diastolic function. 3. No vegetations. 4. No pericardial effusion.
[2020-09-16 06:30] VITALS: BP 142/75
[2020-09-16 07:21] LABS: HEMATOCRIT 33.8 % (36.0-47.0); HEMOGLOBIN 11.2 g/dl (12.0-15.5); MEAN CORPUSCULAR HEMOGLOBIN 33.8 pg (27.0-33.0); MEAN CORPUSCULAR HGB CONC 33.1 g/dl (32.0-36.5); MEAN CORPUSCULAR VOLUME 102.1 fl (80.0-96.0); PLATELET COUNT, AUTOMATED 184 10^3/uL (150-450); RED BLOOD COUNT 3.31 10^6/uL (4.00-5.40); WHITE BLOOD COUNT 2.7 10^3/uL (4.0-10.0)
[2020-09-16 07:47] LABS: BLOOD UREA NITROGEN 3 MG/DL (7-18); CALCIUM LEVEL 9.3 MG/DL (8.5-10.1); CARBON DIOXIDE LEVEL 28 MEQ/L (21-32); CHLORIDE LEVEL 112 MEQ/L (98-107); CREATININE FOR GFR 0.58 MG/DL (0.55-1.30); GLOMERULAR FILTRATION RATE > 60.0 (>51); GLUCOSE, FASTING 78 MG/DL (70-100); MAGNESIUM LEVEL 1.9 MG/DL (1.8-2.4); SODIUM LEVEL 147 MEQ/L (136-145)
[2020-09-16] MEDS ORDERED: CREON-12 CAPSULE PO SCH (08:00)
[2020-09-16] MEDS ORDERED: POTASSIUM CHLORIDE 10 MEQ SR TABLET PO SCH (09:00)
[2020-09-16] MEDS ORDERED: ASPIRIN 81MG ENTERIC TABLET PO SCH (09:00)
[2020-09-16] MEDS ORDERED: CYANOCOBALAMIN 500 MCG TAB PO SCH (09:00)
[2020-09-16] MEDS ORDERED: SERTRALINE 100 MG TAB PO SCH (09:00)
[2020-09-16] MEDS ORDERED: MULTIVITAMINS/MINERALS THERAP 1 TAB PO SCH (09:00)
[2020-09-16] MEDS ORDERED: FUROSEMIDE 40MG/4ML VIAL (J1940) IV SCH (09:00)
[2020-09-16] MEDS ORDERED: ENOXAPARIN 40MG/0.4ML SYRINGE (J1650 PER 10MG) SC SCH (09:00)
[2020-09-16] MEDS ORDERED: PROPRANOLOL 20 MG TAB PO SCH (09:00)
--- NOTE | 2020-09-16 09:57 | DSES ---
DISCHARGE SUMMARY DATE OF ADMISSION: 09/15/2020 DATE OF DISCHARGE: 09/16/2020 SUBJECTIVE: Terra is seen on an interim bed in the Emergency Room, admitted with atypical chest pain. CT angiogram was unremarkable, echocardiogram was unremarkable. It is felt that she has congestive heart failure. She has diuresed well. The lower extremity edema has resolved. Her hypokalemia has resolved. She has alcohol related pancreatic insufficiency. She denies any diarrhea. Her troponins have all been flat. OBJECTIVE: VITAL SIGNS: Afebrile. Vital signs are stable. GENERAL: She is alert, conversant, in no distress. She wants to go home. NECK: No JVD. LUNGS: Clear. HEART: Regular rhythm without murmur. CHEST: Chest wall is tender to palpate, reproduces pain. ABDOMEN: Soft, nontender, no masses. EXTREMITIES: No peripheral edema. Normal strength in the arms and legs. LABORATORY DATA: Potassium is up to 4.0, renal function is normal. Troponin is negative x3. CBC is stable. Telemetry showed no arrhythmias. IMPRESSION: The patient wants to go home. I think she is stable for discharge, this is more of a congestive heart failure. Her chest pain seems chest wall in origin. She will be discharged home in an improved and stable condition. Follow-up with the primary care provider in a week. Activity as tolerated. No added salt diet recommended. She will resume the medicine she was taking prior to admission, aspirin 81 mg daily, B12, furosemide 20 mg daily, hydroxyzine 50 mg t.i.d. p.r.n., pancreatic enzymes, propanolol 40 mg, Ropinirole 0.25 mg t.i.d., sertraline 100 mg daily, Sumatriptan p.r.n. for migraines. Follow-up with primary care provider in a week. A no added salt diet.
[2020-09-16 10:49] VITALS: BP 142/75
[2020-09-16] MEDS: hydrOXYzine 50 MG TAB PO SCH (10:49)
[2020-09-16] MEDS ORDERED: rOPINIRole 0.25 MG TAB(REQUIP) PO SCH (21:00)
== END 2020-09-16 12:30 | disposition home or self-care (01) ==
LOC: M ED 16:10 → M ED INP 16:11
PROVIDERS: ADMIT Internal Medicine; ATTEND Internal Medicine
DX: I50.9 Heart failure, unspecified (principal); R07.89 Other chest pain; R60.0 Localized edema; E87.6 Hypokalemia; K86.89 Other specified diseases of pancreas; R11.2 Nausea with vomiting, unspecified; R06.02 Shortness of breath; Z91.81 History of falling; F41.9 Anxiety disorder, unspecified; F32.9 Major depressive disorder, single episode, unspecified; K21.9 Gastro-esophageal reflux disease without esophagitis; I69.951 Hemiplegia and hemiparesis following unspecified cerebrovascular disease affecting right dominant side; E78.5 Hyperlipidemia, unspecified; G30.0 Alzheimer's disease with early onset; G43.909 Migraine, unspecified, not intractable, without status migrainosus; Z86.718 Personal history of other venous thrombosis and embolism; F10.11 Alcohol abuse, in remission; Z79.899 Other long term (current) drug therapy; Z79.82 Long term (current) use of aspirin; Z88.0 Allergy status to penicillin
CPT/HCPCS: 36415; 70450; 71045; 71275; 74177; 80047; 80048; 80076; 82140; 82150; 82550; 82553; 83605; 83690; 83735; 83880; 85025; 85027; 85610; 85730; 87631; 93005; 93041; 93306; 96374; 96376; 99285; J1940; Q9967

== ENCOUNTER → 2020-09-22 | Outpatient (REF) | payer OTHER ==
[~2020-09-22] MED LIST changes: +CREO12CA PO; +PROP40TA62 PO; +SUMA100T2 PO; +VITA500T40 PO; +ZOLO100T PO
== END ==
LOC: M LAB REF 16:37
PROVIDERS: ATTEND Internal Medicine
DX: D51.9 Vitamin B12 deficiency anemia, unspecified (principal)

== ENCOUNTER → 2020-10-13 | Outpatient (CLI) | payer OTHER ==
[2020-10-13 17:52] LABS: BASO % 0.6 % (0.0-1.0); EOS # 0.1 10^3/uL (0.0-0.5); EOS % 1.4 % (0.0-3.0); HEMATOCRIT 36.6 % (36.0-47.0); HEMOGLOBIN 11.8 g/dl (12.0-15.5); LYMPH # 1.2 10^3/uL (1.5-5.0); LYMPH % 34.3 % (24.0-44.0); MEAN CORPUSCULAR HEMOGLOBIN 32.1 pg (27.0-33.0); MEAN CORPUSCULAR HGB CONC 32.2 g/dl (32.0-36.5); MEAN CORPUSCULAR VOLUME 99.5 fl (80.0-96.0); MONO # 0.4 10^3/uL (0.0-0.8); MONO % 11.1 % (2.0-8.0); NEUTROPHILS # 1.9 10^3/uL (1.5-8.5); NEUTROPHILS % 52.3 % (36.0-66.0); PLATELET COUNT, AUTOMATED 173 10^3/uL (150-450); RED BLOOD COUNT 3.68 10^6/uL (4.00-5.40); WHITE BLOOD COUNT 3.6 10^3/uL (4.0-10.0)
[2020-10-13 18:18] LABS: ALBUMIN 3.7 GM/DL (3.2-5.2); ALT/SGPT 35 U/L (12-78); BILIRUBIN,TOTAL 0.4 MG/DL (0.2-1.0); BLOOD UREA NITROGEN 7 MG/DL (7-18); CALCIUM LEVEL 9.7 MG/DL (8.5-10.1); CARBON DIOXIDE LEVEL 26 MEQ/L (21-32); CHLORIDE LEVEL 110 MEQ/L (98-107); CHOLESTEROL LEVEL 219 MG/DL (<200); CREATININE FOR GFR 0.54 MG/DL (0.55-1.30); FERRITIN 17 NG/ML (8-252); FREE T4 0.93 NG/DL (0.76-1.46); GLOMERULAR FILTRATION RATE > 60.0 (>51); GLUCOSE, FASTING 83 MG/DL (70-100); HDL CHOLESTEROL 75 MG/DL (>40); IRON (FE) 50 UG/DL (50-170); LDL CHOLESTEROL 131 MG/DL (<100); LIPASE 177 U/L (73-393); NON-HDL-C 144 MG/DL; NT-PRO BNP 148 PG/ML (<125); SODIUM LEVEL 142 MEQ/L (136-145); TOTAL PROTEIN 7.1 GM/DL (6.4-8.2); TRIGLYCERIDES LEVEL 63 MG/DL (<150); VITAMIN B12 LEVEL 1393 PG/ML
[2020-10-13 18:19] LABS: FOLATE 4.6 NG/ML
== END ==
LOC: M PLALAB 15:26
PROVIDERS: ATTEND Nurse Practitioner Family
DX: I50.9 Heart failure, unspecified (principal)

== ENCOUNTER → 2020-10-29 | Outpatient (CLI) | payer OTHER ==
--- NOTE | 2020-10-29 10:08 | REP ---
INDICATION: CERVICALGIA. COMPARISON: None. TECHNIQUE: There are 8 views including flexion and extension views. FINDINGS: There is disc space narrowing compatible with degenerative disc disease at C5-6. The remainder of the disc spaces are unremarkable. Vertebral body heights and alignment are normal. Paravertebral soft tissues are normal. The facets are normally aligned. There is mild foraminal encroachment from uncinate spurring on the right at C5-6 likely secondary to the degenerative disc disease. No other foraminal encroachment is identified. IMPRESSION: C5-6 degenerative disc disease with mild foraminal encroachment from uncinate spurring at this level on the right. <Electronically signed by Rodney Carver > 10/29/20 1003
== END ==
LOC: M PLAIMG 08:03 → M PLALAB 08:03
PROVIDERS: ATTEND Nurse Practitioner Family
DX: M54.2 Cervicalgia (principal)

== ENCOUNTER 2020-11-19 13:45 | Outpatient (RCR) | payer OTHER | END 2020-11-25 | LOC: M PT 13:45 | PROVIDERS: ATTEND Nurse Practitioner Family | DX: M54.2 Cervicalgia (principal) ==

== ENCOUNTER → 2020-11-21 | Outpatient (CLI) | payer OTHER ==
--- NOTE | 2020-11-21 09:53 | REP ---
INDICATION: N64.4 LT BREAST PAIN. patient reports pain in the entire left breast x1 month. Recent odiferous yellow nipple discharge x1 month. Question central nipple inversion on the left COMPARISON: Mammography is reviewed from August 12, 2016 and October 29, 2008. TECHNIQUE: Routine views of each breast are augmented by nipple in profile craniocaudal views and true mediolateral views. 3D tomography is deployed. Whole left breast and subareolar targeted left breast sonography are carried out. FINDINGS: Scattered fibroglandular elements are seen bilaterally. No suspicious or dominant density is seen. No microcalcification or architectural distortion is seen. No worrisome skin change is appreciated. 3-D tomosynthesis shows no additional finding. There is no change in the mammographic pattern in the interval since the 2016 prior study. There is been some involution since the 2008 study bilaterally. The Volpara volumetric breast density pattern is B. Left breast sonography: Heterogeneous fibroglandular background echotexture is seen. In the 3 o'clock position, 2.8 cm from the nipple, there is a 4 mm benign cyst. No sonographically suspicious finding.. IMPRESSION: BIRADS/ACR category 2 benign breast imaging. No suspicious abnormality.. This patient's Tyrer-Cuzick lifetime breast cancer risk assessment score is 4.0%. This mammogram was interpreted with the aid of an FDA-approved computer-aided detection system. The patient states she had a clinical breast exam in over a year ago. The patient letter being requested is M2. RECOMMENDATION: Repeat screening mammography recommended 1 year (for women over 40). Clinical follow-up regarding patient's breast symptoms. <Electronically signed by Alton Nelson > 11/21/20 [id number]
== END ==
LOC: M WHC 07:59
PROVIDERS: ATTEND Nurse Practitioner Family
DX: N64.4 Mastodynia (principal)
CPT/HCPCS: 76642; 77066; G0279

== ENCOUNTER 2022-09-28 22:42 | Emergency (ER) | payer BC, OTHER ==
[~2022-09-28] VITALS: Ht 170.2 cm; Wt 63.6 kg
[~2022-09-28 22:42] MED LIST changes: -ROPI0.253 PO; +ROPI5TAB19 PO
[2022-09-28 23:56] LABS: BASO % 0.5 % (0.0-1.0); EOS # 0.1 10^3/uL (0.0-0.5); EOS % 1.4 % (0.0-3.0); HEMATOCRIT 34.2 % (36.0-47.0); HEMOGLOBIN 11.1 g/dl (12.0-15.5); LYMPH # 1.5 10^3/uL (1.5-5.0); LYMPH % 36.6 % (24.0-44.0); MEAN CORPUSCULAR HEMOGLOBIN 30.8 pg (27.0-33.0); MEAN CORPUSCULAR HGB CONC 32.5 g/dl (32.0-36.5); MONO # 0.4 10^3/uL (0.0-0.8); NEUTROPHILS # 2.1 10^3/uL (1.5-8.5); NEUTROPHILS % 51.3 % (36.0-66.0); PLATELET COUNT, AUTOMATED 212 10^3/uL (150-450); WHITE BLOOD COUNT 4.2 10^3/uL (4.0-10.0)
[2022-09-29 00:10] LABS: ALBUMIN 3.7 G/DL (3.2-5.2); ALKALINE PHOSPHATASE 95 U/L (46-116); ALT/SGPT 17 U/L (7.0-40); AST/SGOT 18 U/L (<34); BILIRUBIN,TOTAL 0.4 MG/DL (0.3-1.2); BLOOD UREA NITROGEN 11 MG/DL (9-23); CALCIUM LEVEL 9.5 MG/DL (8.5-10.1); CARBON DIOXIDE LEVEL 25 MMOL/L (20-31); CHLORIDE LEVEL 108 MMOL/L (98-107); CREATININE FOR GFR 0.74 MG/DL (0.55-1.30); GLOMERULAR FILTRATION RATE > 60.0 (>51); GLUCOSE, FASTING 88 MG/DL (60-100); POTASSIUM SERUM 3.4 MMOL/L (3.5-5.1); SODIUM LEVEL 140 MMOL/L (136-145); TOTAL PROTEIN 6.4 G/DL (5.7-8.2)
[2022-09-29] MEDS ORDERED: ISOVUE-370 76% 100ML VIAL As Ordered ONE (02:35)
[2022-09-29 02:59] LABS: CK-MB VALUE MASS < 1.0 NG/ML (<3.6)
[2022-09-29 03:01] LABS: CPK CREATINE PHOSPHOKINASE 81 U/L (34-145); MB/CK RELATIVE INDEX 1.23 (< OR =4)
[2022-09-29 04:30] VITALS: BP 133/80; TEMP 98; O2SAT 98
[2022-09-29] MEDS ORDERED: KETOROLAC 30 MG/ML 1ML VIAL IV ONE (04:35)
[2022-09-29] MEDS ORDERED: predniSONE 20 MG TAB PO ONE (04:40)
[2022-09-29] MEDS ORDERED: MEDR4PAK PO (05:36)
== END 2022-09-29 05:50 | disposition home or self-care (01) ==
LOC: M ED 22:42
DX: R06.00 Dyspnea, unspecified (principal); R91.8 Other nonspecific abnormal finding of lung field; Z88.0 Allergy status to penicillin; Z79.899 Other long term (current) drug therapy; Z79.82 Long term (current) use of aspirin
CPT/HCPCS: 71046; 71275; 74177; 80053; 82550; 82553; 83880; 84484; 85025; 93005; 93970; 96374; 99284; J1885; J7512; Q9967

== ENCOUNTER 2025-03-15 19:58 | Emergency (ER) | payer OTHER ==
[~2025-03-15] VITALS: Ht 170.2 cm; Wt 67.4 kg
[~2025-03-15 19:58] MED LIST changes: -BACTDSTA PO; +MEDR4PAK PO; +SULF-8 PO
[2025-03-15] MEDS ORDERED: NITR100C2 (20:11)
[2025-03-15 21:00] LABS: KETONE, URINE AUTO RFX NEGATIVE (NEGATIVE); LEUKOCYTE ESTERASE UR AUTO RFX NEGATIVE (NEGATIVE); RBC, URINE AUTO RFX 0 /HPF (0-3); SQUAM EPITHELIAL CELL UR AURFX 1 /HPF (0-6); WBC, URINE AUTO RFX 0 /HPF (0-3)
[2025-03-15 21:02] LABS: NITRITE, URINE AUTO RFX POSITIVE (NEGATIVE)
[2025-03-15 21:26] LABS: BASO # 0.0 10^3/uL (0.0-0.2); BASO % 0.8 % (0.0-1.0); EOS # 0.0 10^3/uL (0.0-0.5); EOS % 0.5 % (0.0-3.0); LYMPH # 1.4 10^3/uL (1.5-5.0); LYMPH % 39.6 % (24.0-44.0); MONO # 0.3 10^3/uL (0.0-0.8); MONO % 8.8 % (2.0-8.0); NEUTROPHILS # 1.8 10^3/uL (1.5-8.5); NEUTROPHILS % 50.0 % (36.0-66.0); PLATELET COUNT, AUTOMATED 248 10^3/uL (150-450)
[2025-03-15 21:27] LABS: ALT/SGPT 19 U/L (7.0-40); AST/SGOT 27 U/L (<34); CALCIUM LEVEL 9.3 MG/DL (8.5-10.1); CARBON DIOXIDE LEVEL 27 MMOL/L (20-31); CHLORIDE LEVEL 104 MMOL/L (98-107); CREATININE FOR GFR 0.75 MG/DL (0.55-1.30); GLOMERULAR FILTRATION RATE > 90.0 (>51); POTASSIUM SERUM 4.2 MMOL/L (3.5-5.1); SODIUM LEVEL 139 MMOL/L (136-145)
[2025-03-15] MEDS: NS (Normal Saline) 0.9% 1,000 ML IV ONE (22:06)
[2025-03-15] MEDS: ONDANSETRON 4MG/2ML VIAL IV ONE (22:06)
[2025-03-15] MEDS: KETOROLAC 30 MG/ML 1 ML VIAL IV ONE (22:07)
[2025-03-15 23:48] LABS: ESTIMATED AVERAGE GLUCOSE 105.0 MG/DL (60-110)
[2025-03-15 23:58] VITALS: O2SAT 95
[2025-03-16] VITALS: BP 93/51
[2025-03-16 00:16] VITALS: TEMP 97.8
[2025-03-16] MEDS ORDERED: CEFD1CAP9 PO (00:30)
[2025-03-16] MEDS: cefTRIAXone SOD 1 GM in DEXTROSE 5% (D5W) ADV/MINI-BAG 50 ML IV ONE (00:34)
== END 2025-03-16 00:50 | disposition home or self-care (01) ==
LOC: M ED 19:58
DX: N39.0 Urinary tract infection, site not specified (principal); J02.9 Acute pharyngitis, unspecified; I10 Essential (primary) hypertension; E78.5 Hyperlipidemia, unspecified; Z86.73 Personal history of transient ischemic attack (TIA), and cerebral infarction without residual deficits; Z79.1 Long term (current) use of non-steroidal anti-inflammatories (NSAID); Z79.2 Long term (current) use of antibiotics; Z79.899 Other long term (current) drug therapy; Z79.810 Long term (current) use of selective estrogen receptor modulators (SERMs)
CPT/HCPCS: 74176; 80048; 80076; 81001; 83036; 83690; 85025; 87086; 87486; 87581; 87633; 87798; 87880; 96374; 96375; 99284; J0696; J1885; J2405